=== PATIENT | female | born 1935 | race Caucasian/White ===

== ENCOUNTER 2017-02-07 22:01 | Inpatient (IN) | payer OTHER ==
[2017-02-07] MEDS ORDERED: ALBUTEROL SO4 2.5/IPRATROPIUM 0.5 INH SOL 3 ML VIAL.NEB. NEB STA (22:34)
[2017-02-07] MEDS ORDERED: MAGNESIUM SULF 50% (8.12 MEQ/2 ML-1 GM VIAL) IVPB ONE (22:34)
--- NOTE | 2017-02-07 22:34 | PDOC ---
History of Present Illness - General History Source: Patient <Indu Johnsonan - Last Filed: 02/07/17 23:48> - General History Source: Patient Exam Limitations: No Limitations - History of Present Illness Initial Comments: 02/07/17 22:48 The patient is a 81 year old female with a significant past medical history of CAD, COPD, HTN, MA (x2), who presents to the emergency department with dyspnea on exertion. This is patients third visit to the ED in the past 2 days. Patient was instructed to pick out hand her medications at the pharmacy. She notes that she took her first dose of Z pack today. She notes that she is still experiencing shortness of breath and cough. The patient denies chest pain, and dizziness. Denies fever, chills, nausea, vomit, diarrhea and constipation. Denies dysuria, frequency, urgency and hematuria. Allergies: None Past surgical history: Cholecystectomy Social history: Former smoker. Alcohol use. No drug use reported PMD - Dr. Mccrary <April Alonso - Last Filed: 02/07/17 23:56> - General Chief Complaint: Asthma Stated Complaint: DIFFICULTY BREATHING Time Seen by Provider: 02/07/17 22:26 Past History - Past Medical History Cancer: Yes (UTERINE) Cardiac Disorders: Yes (2 MA'S) COPD: Yes HTN: Yes Thyroid Disease: Yes - Surgical History Abdominal Surgery: Yes (BLOCKAGE) Cholecystectomy: Yes - Psycho/Social/Smoking Cessation Hx Anxiety: No Suicidal Ideation: No Smoking Status: Yes Smoking History: Never smoked Have you smoked in the past 12 months: No Number of Cigarettes Smoked Daily: 10 If you are a former smoker, when did you quit?: 5 years ago Information on smoking cessation initiated: No 'Breaking Loose' booklet given: 11/20/12 Hx Alcohol Use: No Drug/Substance Use Hx: No Substance Use Type: None Hx Substance Use Treatment: No <Jasmeet Johnson - Last Filed: 02/07/17 23:48> <April Alonso - Last Filed: 02/07/17 23:56> - Past Medical History Allergies/Adverse Reactions: Allergies Allergy/AdvReac Type Severity Reaction Status Date / Time No Known Allergies Allergy Verified 02/07/17 22:17 Home Medications: Ambulatory Orders Albuterol Sulfate Inhaler - [Ventolin HFA Inhaler -] 1 - 2 inh IH TID PRN Estrogens,Conjugated [Premarin] 1.25 mg PO DAILY 11/16/12 Levothyroxine [Synthroid -] 25 mcg PO DAILY 11/16/12 Metoprolol Succinate [Toprol XL -] 12.5 mg PO HS 11/16/12 Aclidinium [place] [Tudorza -] 1 inh PO ASDIR 02/19/15 Albuterol 2.5/Ipratropium 0.5 [Duoneb -] 1 neb NEB TID PRN 02/19/15 Aspirin [ASA -] 81 mg PO DAILY 02/19/15 Mirabegron [Myrbetriq] 25 mg PO DAILY 02/19/15 Cyclobenzaprine HCl [Flexeril -] 5 mg PO PRN 10/02/16 Oxycodone HCl/Acetaminophen [Percocet 5-325 mg Tablet] 1 tab PO PRN 10/02/16 Chlorthalidone [Hygroton -] 25 mg PO DAILY 02/06/17 Gabapentin [Neurontin -] 100 mg PO Q8H 02/06/17 Prednisone [Deltasone -] 5 mg PO DAILY 02/06/17 Prednisone [Deltasone -] 10 mg PO DAILY 02/06/17 Azithromycin [Zithromax Tri-Severino (3 DAYS) -] 500 mg PO DAILY #3 tablet 02/07/17 Sodium Chloride Inhalation [Normal Saline For Inhalation -] 3 ml IH Q6H PRN #60 vial.neb 02/07/17 Review of Systems - Review of Systems Able to Perform ROS?: Yes Comments:: 02/07/17 22:46 CONSTITUTIONAL: Absent: fever, chills, diaphoresis, generalized weakness, malaise, loss of appetite HEENT: Absent: rhinorrhea, nasal congestion, throat pain, throat swelling, difficulty swallowing, mouth swelling, ear pain, eye pain, visual Changes CARDIOVASCULAR: Absent: chest pain, syncope, palpitations, irregular heart rate, lightheadedness , peripheral edema RESPIRATORY: Present: shortness of breath, dyspnea on exertion. Absent: cough, orthopnea, wheezing, stridor, hemoptysis GASTROINTESTINAL: Absent: abdominal pain, abdominal distension, nausea, vomiting, diarrhea, constipation, melena, hematochezia GENITOURINARY: Absent: dysuria, frequency, urgency, hesitancy, hematuria, flank pain, genital pain MUSCULOSKELETAL: Absent: myalgia, arthralgia, joint swelling SKIN: Absent: rash, itching, pallor HEMATOLOGIC/IMMUNOLOGIC: Absent: easy bleeding, easy bruising, lymphadenopathy, frequent infections ENDOCRINE: Absent: unexplained weight gain, unexplained weight loss, heat intolerance, cold intolerance NEUROLOGIC: Absent: headache, focal weakness or paresthesias, dizziness, unsteady gait, seizure, mental status changes, bladder or bowel incontinence PSYCHIATRIC: Absent: anxiety, depression, suicidal or homicidal ideation, hallucinations. <April Alonso - Last Filed: 02/07/17 23:56> *Physical Exam - Vital Signs Last Vital Signs Temp Pulse Resp BP Pulse Ox 98.0 F 87 18 148/62 94 L 02/07/17 22:01 02/07/17 22:01 02/07/17 22:01 02/07/17 22:01 02/07/17 22:01 <Jasmeet Johnson - Last Filed: 02/07/17 23:48> - Vital Signs Last Vital Signs Temp Pulse Resp BP Pulse Ox 98.0 F 87 18 148/62 94 L 02/07/17 22:01 02/07/17 22:01 02/07/17 22:01 02/07/17 22:01 02/07/17 22:01 - Physical Exam Comments: 02/07/17 22:45 GENERAL: Well developed, well nourished. Awake and alert. In no acute distress. HEENT: Normocephalic, atraumatic. PERRLA, EOMI. No conjunctival pallor. Sclerae are non -icteric. Moist mucous membranes. Oropharynx is clear. NECK: Supple. Full ROM. No JVD. Carotid pulses 2+ and symmetric, without bruits. No thyromegaly. No lymphadenopathy. CARDIOVASCULAR: Regular rate and rhythm. No murmurs, rubs, or gallops. Distal pulses are 2+ and symmetric. PULMONARY: +Decreased breath sounds. +conversational dyspnea. Lungs clear to auscultation bilaterally. No wheezing, rales or rhonchi. ABDOMINAL: Soft. Non-tender. Non-distended. No rebound or guarding. No organomegaly. Normoactive bowel sounds. MUSCULOSKELETAL Normal range of motion at all joints. No bony deformities or tenderness. No CVA tenderness. EXTREMITIES: No cyanosis. No clubbing. No edema. No calf tenderness. SKIN: Warm and dry. Normal capillary refill. No rashes. No jaundice. NEUROLOGICAL: Alert, awake, appropriate. Cranial nerves 2-12 intact. No deficits to light touch and temperature in face, upper extremities and lower extremities. No motor deficits in the in face, upper extremities and lower extremities. Normoreflexic in the upper and lower extremities. Normal speech. Toes are downgoing bilaterally. Gait is normal without ataxia. PSYCHIATRIC: Cooperative. Good eye contact. Appropriate mood and affect. <April Alonso - Last Filed: 02/07/17 23:56> ED Treatment Course - LABORATORY CBC & Chemistry Diagram: 02/07/17 22:50 02/07/17 22:50 <Jasmeet Johnson - Last Filed: 02/07/17 23:48> - LABORATORY CBC & Chemistry Diagram: 02/07/17 22:50 02/07/17 22:50 <April Alonso - Last Filed: 02/07/17 23:56> Medical Decision Making - Medical Decision Making 02/07/17 23:48 Dr. Johnson: The scribe's documentation has been prepared under my direction and personally reviewed by me in its entirery. I confirm that the note above accurately reflects all work, treatment, procedures, and medical decision making performed by me. Pt presents for her 3rd visit of the day. States she has been compliant with her medication. Will admit to [facility] <Jasmeet Johnson - Last Filed: 02/07/17 23:48> - Medical Decision Making 02/07/17 22:44 A call was placed to Dr. Mccrary at his service. Awaiting a call back. 02/07/17 23:25 A second call was placed to Dr. Mccrary at his service. Awaiting a call back. 02/07/17 23:[address] Mccrary. <April Alonso - Last Filed: 02/07/17 23:56> *DC/Admit/Observation/Transfer - Discharge Dispostion Admit: Yes <Jasmeet Johnson - Last Filed: 02/07/17 23:48> - Attestations Scribe Attestion: 04/10/17 22:45 Documentation prepared by DADA Singer, acting as medical delivery driver for Jasmeet Johnson DO. <April Alonso - Last Filed: 02/07/17 23:56> Diagnosis at time of Disposition: Shortness of breath, COPD exacerbation - Referrals Referrals: Elliot Mccrary MD [Primary Care Provider] -
[2017-02-07] MEDS ORDERED: MAGNESIUM SULF 50% (8.12 MEQ/2 ML-1 GM VIAL) ONE (22:38)
[2017-02-07 23:03] LABS: BASOPHIL 0.3 % (0-2.0); MCH 28.5 pg (25.7-33.7); MCHC 33.2 g/dl (32.0-36.0); NEUTROPHILS 87.1 % (42.8-82.8); PLATELET COUNT 299 K/MM3 (134-434); RDW 14.2 % (11.6-15.6); WHITE BLOOD COUNT 14.2 K/mm3 (4.0-10.0)
[2017-02-07 23:21] LABS: CALCIUM 8.8 mg/dL (8.5-10.1); COCKROFT - GAULT 32.963
[2017-02-07] MEDS ORDERED: POTASSIUM CHLORIDE TABS 20 MEQ TABLET.ER (FP) PO ONE ×2 (23:47→23:52)
[2017-02-07] MEDS ORDERED: ALBUTEROL SO4 2.5/IPRATROPIUM 0.5 INH SOL 3 ML VIAL.NEB. NEB ONE (23:52)
[2017-02-08] MEDS ORDERED: ALBUTEROL SO4 0.083% IH SOL 2.5 MG/3 ML VIAL.NEB. NEB PRN (00:41)
--- NOTE | 2017-02-08 00:41 | HP ---
CHIEF COMPLAINT: shortness of breath PCP: Dr. Mccrary Cardio" Dr. Campbell HISTORY OF PRESENT ILLNESS: 81 yr old woman with COPD, HTN, CAD, LA x2, presents to the ED for shortness of breath with mild frontal headache. This is the patient's third visit to the ED in 48-hours. She was brought in by EMS on 02/06 for difficulty breathing in the morning. She used her home oxygen and albuterol neb treatment x1 without relief , in the ED she improved with saline nebulizer and dc'd with prescription for 3- day Z-severino. She returned home and felt her sob worsened, she was brought in by , received duonebs that improved her symptoms and discharged. At home, she again felt her symptoms were worsening, she took 10mg of po prednisone and tried her home oxygen without any relief and returned to the hospital this night. Shortness of breath occurs at rest, made worse with exertion. She also c/ o intermittent productive cough of clear-white sputum that started on . Headache started this morning, is located in the front of the head, nonradiating , nonpositional, continuing to improve on its own. She has been having poor appetite since symptoms started on the . Denies fevers, hx of ICU stays/intubations, chest pain, dysuria, rhinorrhea, hemoptysis, PND, abdominal pain, diarrhea, travel, changes in vision, N/V. Denies pets at home or sick contacts. She has been alternating between 5mg and 10mg of prednisone daily for past year. 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 chronic neck pain hypothyroidism SBO PAST SURGICAL HISTORY: 1969's - hysterectomy for cervical cancer cholecystectomy ex-lap Social History: Smokin/2 pk/30-40 yrs, quit 6yrs ago Alcohol: rare glass of wine Drugs: denies Family History: [place] Allergies No Known Allergies Allergy (Verified 02/07/17 22:17) HOME MEDICATIONS: Recent change in anti-hypertensives: does not recall the name of medication but it had to be stopped because it made her "puffy," recently started on chlorthalidone. Home Medications Medication Instructions Recorded Albuterol Sulfate Inhaler - 1 - 2 inh IH TID PRN 11/16/12 [Ventolin HFA Inhaler -] Estrogens,Conjugated [Premarin] 1.25 mg PO DAILY 11/16/12 Levothyroxine [Synthroid -] 25 mcg PO DAILY 11/16/12 Metoprolol Succinate [Toprol XL -] 12.5 mg PO HS 11/16/12 Aclidinium [place] [Tudorza -] 1 inh PO ASDIR 02/19/15 Albuterol 2.5/Ipratropium 0.5 1 neb NEB TID PRN 02/19/15 [Duoneb -] Aspirin [ASA -] 81 mg PO DAILY 02/19/15 Mirabegron [Myrbetriq] 25 mg PO DAILY 02/19/15 Cyclobenzaprine HCl [Flexeril -] 5 mg PO PRN 10/02/16 Oxycodone HCl/Acetaminophen 1 tab PO PRN 10/02/16 [Percocet 5-325 mg Tablet] Chlorthalidone [Hygroton -] 25 mg PO DAILY 02/06/17 Gabapentin [Neurontin -] 100 mg PO Q8H 02/06/17 Prednisone [Deltasone -] 5 mg PO DAILY 02/06/17 Prednisone [Deltasone -] 10 mg PO DAILY 02/06/17 Azithromycin [Zithromax Tri-Severino (3 500 mg PO DAILY #3 tablet 02/07/17 DAYS) -] Sodium Chloride Inhalation [Normal 3 ml IH Q6H PRN #60 vial.neb 02/07/17 Saline For Inhalation -] REVIEW OF SYSTEMS CONSTITUTIONAL: Present: loss of appetite, Absent: fever, chills, diaphoresis, generalized weakness, malaise,weight change HEENT: Absent: rhinorrhea, nasal congestion, throat pain, throat swelling, difficulty swallowing, mouth swelling, ear pain, eye pain, visual changes CARDIOVASCULAR: Absent: chest pain, syncope, palpitations, irregular heart rate, lightheadedness , peripheral edema RESPIRATORY: Present:cough, shortness of breath Absent: , dyspnea with exertion, orthopnea, wheezing, stridor, hemoptysis GASTROINTESTINAL: Present: constipation, Absent: abdominal pain, abdominal distension, nausea, vomiting, diarrhea, melena , hematochezia GENITOURINARY: Absent: dysuria, frequency, urgency, hesitancy, hematuria, flank pain, genital pain MUSCULOSKELETAL: Absent: myalgia, arthralgia, joint swelling, back pain, neck pain SKIN: Absent: rash, itching, pallor HEMATOLOGIC/IMMUNOLOGIC: Absent: easy bleeding, easy bruising, lymphadenopathy, frequent infections ENDOCRINE: Absent: unexplained weight gain, unexplained weight loss, heat intolerance, cold intolerance NEUROLOGIC: Absent: headache, focal weakness or paresthesias, dizziness, unsteady gait, seizure, mental status changes, bladder or bowel incontinence PSYCHIATRIC: Absent: anxiety, depression, suicidal or homicidal ideation, hallucinations. PHYSICAL EXAMINATION Vital Signs - 24 hr 02/07/17 02/07/17 22:01 23:02 Temperature 98.0 F Pulse Rate 87 82 Respiratory 18 Rate Blood Pressure 148/62 O2 Sat by Pulse 94 L 100 Oximetry (%) GENERAL: Awake, alert, and fully oriented, in no acute distress. thin elderly woman, able to speak in full sentences without sob. HEAD: Normal with no signs of trauma. EYES: Pupils equal, round and reactive to light, extraocular movements intact, sclera anicteric, conjunctiva clear. No lid lag. no sinus tenderness. EARS, NOSE, THROAT: Ears normal, nares patent, oropharynx clear without exudates. dry mucous membranes. no PND, no oral lesions. nasal cannula in place. NECK: Normal range of motion, supple without lymphadenopathy, JVD, or masses. LUNGS: Breath sounds diminished from mid-lung to bases in b/l lungs. clear breath sounds at apices. No accessory muscle use. HEART: Regular rate and rhythm, normal S1 and S2 without murmur, rub or gallop. ABDOMEN: Soft, nontender, not distended, normoactive bowel sounds, no guarding, no rebound, no masses. well-healed midline scar below umbilicus and hysterectomy scar MUSCULOSKELETAL: Normal range of motion at all joints. No bony deformities or tenderness. No CVA tenderness. UPPER EXTREMITIES: 2+ pulses, warm, well-perfused. No cyanosis. No clubbing. No peripheral edema. LOWER EXTREMITIES: 2+ pulses, warm, well-perfused. No calf tenderness. No peripheral edema. right arteaga with few small nontender non-blanching petechaie NEUROLOGICAL: Cranial nerves II-XII intact. Normal speech. PSYCHIATRIC: Cooperative. Good eye contact. Appropriate mood and affect. SKIN: Warm, dry, normal turgor, no rashes or lesions noted, normal capillary refill. Laboratory Results - last 24 hr 02/07/17 02/07/17 22:50 22:50 WBC 14.2 H RBC 4.40 Hgb 12.6 Hct 37.8 MCV 86.0 MCHC 33.2 RDW 14.2 Plt Count 299 MPV 8.0 Neutrophils % 87.1 H Lymphocytes % 7.1 L D Monocytes % 5.5 Eosinophils % 0.0 D Basophils % 0.3 Sodium 139 Potassium 3.1 L Chloride 97 L Carbon Dioxide 30 Anion Gap 12 BUN 18 Creatinine 1.0 D Random Glucose 137 H Calcium 8.8 Active Medications Acetaminophen (Tylenol -) 325 mg PO ONCE PRN PRN Reason: HEADACHE Aclidinium [place] (Tudorza -) 1 puff IH ASDIR [place] Albuterol Sulfate (Ventolin 0.083% Nebulizer Soln -) 1 amp NEB Q4H [place] Aspirin (Asa -) 81 mg PO DAILY [place] Chlorthalidone (Hygroton -) 25 mg PO DAILY [place] Cyclobenzaprine HCl (Flexeril -) 5 mg PO PRN [place] Enoxaparin Sodium (Lovenox -) 40 mg SQ DAILY [facility] Estrogens Conjugated (Premarin -) 1.25 mg PO DAILY [place] Gabapentin (Neurontin -) 100 mg PO Q8H [place] Guaifenesin/Codeine Phosphate (Robitussin Ac -) 10 ml PO Q8H PRN PRN Reason: COUGH Levothyroxine Sodium (Synthroid -) 25 mcg PO AM [place] Methylprednisolone Sodium Succinate (Solu-Medrol -) 60 mg IVPB Q6H-IV [place] Metoprolol Succinate (Toprol Xl -) 12.5 mg PO HS [place] Non-Formulary Medication (Albuterol Sulfate Inhaler - [Ventolin Hfa Inhaler -]) 2 inh IH TID PRN PRN Reason: SHORT OF BREATH/WHEEZING Non-Formulary Medication (Azithromycin [Zithromax Tri-Severino (3 Days) -]) 500 mg PO DAILY [place] Non-Formulary Medication (Mirabegron [Myrbetriq]) 25 mg PO DAILY [place] Pantoprazole Sodium (Protonix -) 20 mg PO ONCE ONE Stop: 02/08/17 06:01 ASSESSMENT/PLAN: 81 yr old woman with COPD on home oxygen prn and chronic steroid use and HTN presents to the ED with worsening SOB admitted for COPD exacerbation. #COPD exacerbation - CXY clear without infiltrate or congestion unlikely to be pna, r/o influenza with flu swab - s/p Mg 1g IV - Duonebs albuterol q4hrs [place] - solumedrol 60mg IV q6hr [place] - azithromycin 500mg qd for 3 days - Guaifenesin/Codeine 10ml q8hr prn - tudorza, ventolin - peak flow measurement #HypoK - repleted in ED, repeat in AM #leucocytosis - pt is afebrile without URI/UTI symptoms, likely due to steriod use - repeat in the AM - if febrile will send cxs #GI prophylaxis - given concurrent use of ASA and steriods, GI prophylaxis with 20mg protonix in the morning. #HTN - chlorthalidone 25mg po qd - toprol XL 12.5mg po HS #Hypothyroidism - 25mcg qd #Constipation, intermittent. had bowel movement this morning - prune juice #Urinary frequency - continue home medication: myrbetriq #Diet: low sodium #DVT: lovenox sq Code status: Full code, consents to intubation. at beside verbalized understanding of patient's resuscitation wishes. Visit type - Emergency Visit Emergency Visit: Yes ED Registration Date: 02/07/17 Care time: The patient presented to the Emergency Department on the above date and was hospitalized for further evaluation of their emergent condition. - New Patient This patient is new to me today: Yes Date on this admission: 02/07/17 - Critical Care Critical Care patient: No
[2017-02-08] MEDS: methylPREDNISolone NA SUCC 40 MG/1 ML VIAL IVPB SCH ×5 (00:45→20:40)
--- NOTE | 2017-02-08 00:51 | PN ---
<Anthony Ballard - Last Filed: 02/08/17 00:50> Teaching Attending Note Name of Resident: Karen Batista ATTENDING PHYSICIAN STATEMENT I saw and evaluated the patient. I reviewed the resident's note and discussed the case with the resident. I agree with the resident's findings and plan as documented. SUBJECTIVE: OBJECTIVE: ASSESSMENT AND PLAN: <AnthonymakennaBrad - Last Filed: 02/08/17 00:55> Teaching Attending Note ATTENDING PHYSICIAN STATEMENT I saw and evaluated the patient. I reviewed the resident's note and discussed the case with the resident. I agree with the resident's findings and plan as documented. SUBJECTIVE: The patient is an 81 year old female who presented to the ED complaining 2 day history of worsening SOB associated with dry non productive cough. She was seen in the ED 3 times over past 24 hours, initially prescribed cough suppressants and Z-pat and discharged, however returned due to worsening of symptoms. She denied associated fever. Patient has hx of adv COPD with most rec exacerbation in Aug 2016. She takes prednisone daily and was prescribed O2 however she does not use it daily. PMH: HTN, COPD, Hypothyroidism, CAD, Cervical cancer, SMO Allergies: None Past surgical history: Cholecystectomy, Hysterectomy, laparotomy Family history: Negative for cancer. Social history: 20 p/y smoker. Alcohol use. No drug use reported OBJECTIVE: Vital Signs: Last Vital Signs Temp Pulse Resp BP Pulse Ox 98.0 F 82 18 148/62 100 02/07/17 22:01 02/07/17 23:02 02/07/17 22:01 02/07/17 22:01 02/07/17 23:02 Physical Exam: GENERAL: Awake, alert, and fully oriented, in no acute distress HEENT: Atraumatic. PERRLA, EOMI. Moist mucosa. No JVD LUNGS: No distress, speaks full sentences, clear to auscultation bilaterally HEART: Regular rate and rhythm, normal S1 and S2, no murmurs, rubs or gallops, peripheral pulses normal and equal bilaterally. ABDOMEN: Soft, nontender, normoactive bowel sounds. No guarding, no rebound. No masses EXTREMITIES: Normal inspection, Normal range of motion, no edema. No clubbing or cyanosis. NEUROLOGICAL: Cranial nerves II through XII grossly intact. Normal speech, no focal sensorimotor deficits SKIN: Warm, Dry, normal turgor, no rashes or lesions noted. Labs: CBCD WBC 14.2 K/mm3 (4.0-10.0) H 02/07/17 22:50 RBC 4.40 M/mm3 (3.60-5.2) 02/07/17 22:50 Hgb 12.6 GM/dL (10.7-15.3) 02/07/17 22:50 Hct 37.8 % (32.4-45.2) 02/07/17 22:50 MCV 86.0 fl (80-96) 02/07/17 22:50 MCHC 33.2 g/dl (32.0-36.0) 02/07/17 22:50 RDW 14.2 % (11.6-15.6) 02/07/17 22:50 Plt Count 299 K/MM3 (134-434) 02/07/17 22:50 MPV 8.0 fl (7.5-11.1) 02/07/17 22:50 CMP Sodium 139 mmol/L (136-145) 02/07/17 22:50 Potassium 3.1 mmol/L (3.5-5.1) L 02/07/17 22:50 Chloride 97 mmol/L (98-107) L 02/07/17 22:50 Carbon Dioxide 30 mmol/L (21-32) 02/07/17 22:50 Anion Gap 12 (8-16) 02/07/17 22:50 BUN 18 mg/dL (7-18) 02/07/17 22:50 Creatinine 1.0 mg/dL (0.55-1.02) D 02/07/17 22:50 Calcium 8.8 mg/dL (8.5-10.1) 02/07/17 22:50 ASSESSMENT AND PLAN: 81 year old female with advanced COPD that presented to ED on 02/07/17 and will be admitted under [facility] on 02/08/17. This patient meets medical necessity for inpatient hospitalization based on need for IV steroid therapy. Considering failure of treatment with outpatient antibiotics and oral prednisone. Anticipated length at hospital greater than 2 midnights. Problem List: 1.COPD exacerbation-acute 2. Leukocytosis 3. Hypokalemia- supplement potassium Plan: Solu Medrol 60 mg Q4. Nebulizers around the clock. Continue Z-pat. Swab for flu. Supplement potassium. Continue home medications. Full code. Admit to med surg. Documentation prepared by Brad Tiwari, acting as chief medical physicist for Dr. Elio MD.
[2017-02-08] MEDS ORDERED: methylPREDNISolone NA SUCC 40 MG/1 ML VIAL ONE ×2 (01:08→02:28)
[2017-02-08] MEDS ORDERED: CYCLOBENZAPRINE HCL 10 MG TABLET (FP) PO SCH (01:15)
[2017-02-08] MEDS: ACLIDINIUM BROMIDE 400 MCG/INH AERO.POWD IH SCH (01:15)
[2017-02-08] MEDS ORDERED: ACETAMINOPHEN 325 MG TABLET (FP) PO PRN (01:50)
[2017-02-08] MEDS ORDERED: ALBUTEROL SO4 0.083% IH SOL 2.5 MG/3 ML VIAL.NEB. NEB ONE (02:27)
[2017-02-08] MEDS ORDERED: GABAPENTIN 100 MG CAPSULE (FP) ONE (02:28)
[2017-02-08] MEDS: GABAPENTIN 100 MG CAPSULE (FP) PO SCH ×3 (03:05→17:10)
[2017-02-08] MEDS: ALBUTEROL SO4 0.083% IH SOL 2.5 MG/3 ML VIAL.NEB. NEB SCH ×4 (04:05→22:06)
[2017-02-08] MEDS ORDERED: PANTOPRAZOLE 40 MG TABLET (FP) ONE (05:40)
[2017-02-08] MEDS ORDERED: LEVOTHYROXINE NA 25 MCG TABLET (FP) ONE (05:40)
[2017-02-08] MEDS ORDERED: PANTOPRAZOLE 20 MG TABLET (FP) PO ONE (06:00)
[2017-02-08] MEDS ORDERED: LEVOTHYROXINE NA 75 MCG TABLET (FP) PO SCH (07:00)
[2017-02-08 07:54] LABS: BASOPHIL 0.1 % (0-2.0); MCH 28.7 pg (25.7-33.7); MCHC 33.4 g/dl (32.0-36.0); MEAN CELL VOLUME 86.1 fl (80-96); MEAN PLT VOLUME 8.4 fl (7.5-11.1); NEUTROPHILS 95.2 % (42.8-82.8); PLATELET COUNT 280 K/MM3 (134-434); RDW 14.2 % (11.6-15.6)
[2017-02-08 08:11] LABS: CALCIUM 8.9 mg/dL (8.5-10.1); COCKROFT - GAULT 41.1995; CREATININE 0.8 mg/dL (0.55-1.02); MAGNESIUM 2.1 mg/dL (1.8-2.4); PHOSPHOROUS 2.3 mg/dL (2.5-4.9)
[2017-02-08] MEDS ORDERED: LEVOTHYROXINE NA 25 MCG TABLET (FP) PO SCH (09:05)
[2017-02-08] MEDS ORDERED: PATIENT'S OWN MEDICATION (NON-FORMULARY) (Mirabegron [Myrbetriq] 25 MG) PO SCH (10:00)
[2017-02-08] MEDS: CHLORTHALIDONE 25 MG TABLET PO SCH (10:12)
[2017-02-08] MEDS: ASPIRIN 81 MG CHEWABLE TABLETS PO SCH (10:12)
[2017-02-08] MEDS: ENOXAPARIN NA (PORCINE) 40 MG/0.4 ML DISP.SYRIN SQ SCH (10:12)
[2017-02-08] MEDS: ESTROGENS,CONJUGATED 1.25 MG TABLET PO SCH (10:13)
[2017-02-08] MEDS: AZITHROMYCIN 250 MG TABLET (FP) PO SCH (10:13)
[2017-02-08] MEDS ORDERED: ALBUTEROL SO4 6.7 GM HFA INHALER IH PRN (16:14)
--- NOTE | 2017-02-08 17:01 | PN ---
Physical Exam: SUBJECTIVE: Patient seen and examined at bedside. Pt comes in to ER for third time in 2 days for unprovoked SOB and dry cough. Pt on initial ER visit she was treated w/nebs and discharged with z-pat. That same night pt again had unprovoked SOB and came to ER and was treated with nebs again and improved and was discharged. Following day pt had SOB again despite trying alb nebs at home, supplemental O2, and 10mg of prednisone prior to coming to ER on third visit. SOB is present at rest and worsened with exertion. She also has a cough with white/clear sputum production. Denies CP, abd pain, diarrhea, dysuria, N/V/F/C, sick contacts, travel history. Currently pt feels better, breathing is improved, cough improved, still having some SOB at rest as per pt. Pt was able to expectorate some green sputum today. OBJECTIVE: Vital Signs Temperature 98.1 F 02/08/17 15:17 Pulse Rate 76 02/08/17 15:17 Respiratory Rate 20 02/08/17 15:17 Blood Pressure 130/60 02/08/17 15:17 O2 Sat by Pulse Oximetry (%) 95 02/08/17 09:00 GENERAL: The patient is awake, alert, and fully oriented, in no acute distress. HEAD: Normal with no signs of trauma. EYES: extraocular movements intact, sclera anicteric, conjunctiva clear. No ptosis. ENT: Ears normal, nares patent, moist mucous membranes. NECK: full range of motion LUNGS: Diminished breath sounds B/L, no wheezing auscultated, no crackles HEART: Regular rate and rhythm, S1, S2 without murmur, rub or gallop. ABDOMEN: Soft, nontender, nondistended, normoactive bowel sounds, no guarding EXTREMITIES: 2+ pulses, warm, well-perfused, no edema. NEUROLOGICAL: Cranial nerves II through XII grossly intact. Normal speech, gait not observed. PSYCH: Normal mood, normal affect. SKIN: Warm, dry, normal turgor, no rashes or lesions noted Laboratory Results - last 24 hr 02/08/17 02/08/17 06:00 06:00 WBC 16.0 H RBC 4.29 Hgb 12.3 Hct 37.0 MCV 86.1 MCHC 33.4 RDW 14.2 Plt Count 280 MPV 8.4 Neutrophils % 95.2 H Lymphocytes % 3.1 L D Monocytes % 1.6 L Eosinophils % 0.0 Basophils % 0.1 Sodium 139 Potassium 3.8 D Chloride 100 Carbon Dioxide 28 Anion Gap 11 BUN 15 Creatinine 0.8 Random Glucose 158 H Calcium 8.9 Phosphorus 2.3 L Magnesium 2.1 CXR 02/07/17: no acute pathology noted. No infiltrates or congestive changes noted. Active Medications Generic Name Dose Route Start Last Admin Trade Name Freq PRN Reason Stop Dose Admin Acetaminophen 325 mg 02/08/17 01:50 Tylenol - PO ONCE PRN HEADACHE Aclidinium [place] 1 puff 02/08/17 01:15 02/08/17 01:15 Tudorza - IH Not Given ASDIR [place] Albuterol Sulfate 2 puff 02/08/17 16:14 Ventolin Hfa Inhaler - IH TID PRN SHORT OF BREATH/WHEEZING Albuterol Sulfate 1 amp 02/08/17 02:15 02/08/17 14:48 Ventolin 0.083% Nebulizer Soln - NEB 1 amp Q4H [place] Administration Aspirin 81 mg 02/08/17 10:00 02/08/17 10:12 Asa - PO 81 mg DAILY [place] Administration Azithromycin 500 mg 02/08/17 10:00 02/08/17 10:13 Zithromax - PO 02/10/17 10:01 500 mg DAILY [place] Administration Chlorthalidone 25 mg 02/08/17 10:00 02/08/17 10:12 Hygroton - PO 25 mg DAILY [place] Administration Cyclobenzaprine HCl 5 mg 02/08/17 01:15 Flexeril - PO PRN [place] Enoxaparin Sodium 40 mg 02/08/17 10:00 02/08/17 10:12 Lovenox - SQ 40 mg DAILY [place] Administration Estrogens Conjugated 1.25 mg 02/08/17 10:00 02/08/17 10:13 Premarin - PO 1.25 mg DAILY [place] Administration Gabapentin 100 mg 02/08/17 01:15 02/08/17 10:12 Neurontin - PO 100 mg Q8H [place] Administration Guaifenesin/Codeine Phosphate 10 ml 02/08/17 01:02 Robitussin Ac - PO Q8H PRN COUGH Levothyroxine Sodium 25 mcg 02/09/17 07:00 Synthroid - PO AM [place] Methylprednisolone Sodium Succinate 60 mg 02/08/17 00:45 02/08/17 14:51 Solu-Medrol - IVPB 60 mg Q6H-IV [place] Administration Metoprolol Succinate 12.5 mg 02/08/17 22:00 Toprol Xl - PO HS [place] Non-Formulary Medication 25 mg 02/09/17 22:00 Mirabegron [Myrbetriq] PO HS [facility] ASSESSMENT/PLAN: 81 y/o F w/sig PMH COPD, HTN, CAD, [place] x2 presents w/SOB for last 2 days. Admitted for COPD exacerbation and pulm nodule followed up as outpatient over last 2 years. -SOB secondary to COPD exacerbation vs cardiac etiology -supplemental oxygen to keep O2 saturation >90% -c/w solu-medrol 60 mg IV q6h -c/w tudorza, ventolin, duonebs -c/w zithromax 500 mg PO qd -Cardiology consulted (Dr. Elias) -Cough -secondary to COPD exacerbation -c/w guaifenesin AC 10ml PO q8h PRN for cough -Lung nodule -11 x 9 mm in RUL, stable in size -followed up as outpatient over last 2 years -Leukocytosis -most likely secondary to steroid use -no signs of infection at this time, monitor -Hypothyroidism -c/w synthroid 25 mcg PO qd -HTN -c/w chlorthalidone 25 mg po qd -c/w toprol xl 12.5 mg po qhs -Overactive bladder -c/w myrbetriq 25 mg po qhs -DVT ppx -lovenox 50 mg sq qd -FEN -No fluids -hypophosphatemia, monitor -low sodium diet Problem List - Problems (1) COPD exacerbation Code(s): J44.1 - CHRONIC OBSTRUCTIVE PULMONARY DISEASE W (ACUTE) EXACERBATION (2) Shortness of breath Code(s): R06.02 - SHORTNESS OF BREATH (3) Lung nodule Code(s): R91.1 - SOLITARY PULMONARY NODULE (4) Leukocytosis Code(s): D72.829 - ELEVATED WHITE BLOOD CELL COUNT, UNSPECIFIED (5) Cough Code(s): R05 - COUGH (6) Hypothyroidism Code(s): E03.9 - HYPOTHYROIDISM, UNSPECIFIED (7) Overactive bladder Code(s): N32.81 - OVERACTIVE BLADDER (8) HTN (hypertension) Code(s): I10 - ESSENTIAL (PRIMARY) HYPERTENSION Visit type - Emergency Visit Emergency Visit: Yes ED Registration Date: 02/07/17 Care time: The patient presented to the Emergency Department on the above date and was hospitalized for further evaluation of their emergent condition. - New Patient This patient is new to me today: Yes Date on this admission: 02/09/17 - Critical Care Critical Care patient: No
--- NOTE | 2017-02-08 18:00 | PN ---
Teaching Attending Note Name of Resident: Angelo Cast ATTENDING PHYSICIAN STATEMENT I saw and evaluated the patient. I reviewed the resident's note and discussed the case with the resident. I agree with the resident's findings and plan as documented. Conrado SEGUNDO MD
[2017-02-08] MEDS ORDERED: PT OWN MED DRAWER 7, Y5N ONE (21:48)
[2017-02-08] MEDS: METOPROLOL SUCCINATE 25 MG TAB.SR.24H (FP) PO SCH (22:45)
[2017-02-09] MEDS: PATIENT'S OWN MEDICATION (NON-FORMULARY) (Mirabegron [Myrbetriq] 25 MG) PO SCH ×2 (00:04→22:43)
[2017-02-09] MEDS ORDERED: ALPRAZolam 0.25 MG TABLET PO ONE (01:15)
[2017-02-09] MEDS: GABAPENTIN 100 MG CAPSULE (FP) PO SCH ×3 (01:21→17:18)
[2017-02-09] MEDS: ACLIDINIUM BROMIDE 400 MCG/INH AERO.POWD IH SCH ×2 (01:21→23:45)
[2017-02-09] MEDS: ALBUTEROL SO4 0.083% IH SOL 2.5 MG/3 ML VIAL.NEB. NEB SCH ×5 (02:20→22:20)
[2017-02-09] MEDS: methylPREDNISolone NA SUCC 40 MG/1 ML VIAL IVPB SCH ×4 (02:42→22:35)
[2017-02-09] MEDS: guaiFENesin/CODEINE 10 ML UNIT-DOSE CUPS PO PRN (02:42)
[2017-02-09 04:22] VITALS: BMI 21.0
[2017-02-09] MEDS: LEVOTHYROXINE NA 25 MCG TABLET (FP) PO SCH (06:34)
[2017-02-09] MEDS ORDERED: PT OWN MED DRAWER 7, Y5N ONE ×3 (08:19→22:38)
--- NOTE | 2017-02-09 08:25 | CON.CARD ---
Consult Consult Specialty:: cardiology Reason for Consultation:: shortness of breath - History of Present Illness Chief Complaint: Pt is short of breath on minimal exertion. History of Present Illness: he patient is a 81 year old white female with a significant past medical history of s/p PA, CAD (hx coronary angiogram at [facility]), COPD, HTN, anxiety, who presents to the emergency department with dyspnea on exertion. This is patient s third visit to the ED in the past 2 days. Patient was instructed to apple picker her medications at the pharmacy. She notes that she took her first dose of Z pack today. She notes that she is still experiencing shortness of breath and cough. The patient denies chest pain, and dizziness. Denies fever, chills, nausea, vomit, diarrhea and constipation. Denies dysuria, frequency, urgency and hematuria. Allergies: None Past surgical history: Cholecystectomy Social history: Former smoker. Alcohol use. No drug use reported PMD - Dr. Mccrary - History Source History Provided By: Patient, Family Member, Medical Record Limitations to Obtaining History: No Limitations - Past Medical History Cardio/Vascular: Yes: CAD, HTN, PA Pulmonary: Yes: COPD - Alcohol/Substance Use Hx Alcohol Use: No - Smoking History Smoking history: Never smoked Have you smoked in the past 12 months: No Aproximately how many cigarettes per day: 10 If you are a former smoker, when did you quit?: 5 years ago Home Medications - Allergies Allergies/Adverse Reactions: Allergies Allergy/AdvReac Type Severity Reaction Status Date / Time No Known Allergies Allergy Verified 02/07/17 22:17 - Home Medications Home Medications: Ambulatory Orders Albuterol Sulfate Inhaler - [Ventolin HFA Inhaler -] 1 - 2 inh IH TID PRN Estrogens,Conjugated [Premarin] 1.25 mg PO DAILY 11/16/12 Levothyroxine [Synthroid -] 25 mcg PO DAILY 11/16/12 Metoprolol Succinate [Toprol XL -] 12.5 mg PO HS 11/16/12 Aclidinium [place] [Tudorza -] 1 inh PO ASDIR 02/19/15 Albuterol 2.5/Ipratropium 0.5 [Duoneb -] 1 neb NEB TID PRN 02/19/15 Aspirin [ASA -] 81 mg PO DAILY 02/19/15 Mirabegron [Myrbetriq] 25 mg PO DAILY 02/19/15 Cyclobenzaprine HCl [Flexeril -] 5 mg PO PRN 10/02/16 Oxycodone HCl/Acetaminophen [Percocet 5-325 mg Tablet] 1 tab PO PRN 10/02/16 Chlorthalidone [Hygroton -] 25 mg PO DAILY 02/06/17 Gabapentin [Neurontin -] 100 mg PO Q8H 02/06/17 Prednisone [Deltasone -] 5 mg PO DAILY 02/06/17 Prednisone [Deltasone -] 10 mg PO DAILY 02/06/17 Azithromycin [Zithromax Tri-[place] (3 DAYS) -] 500 mg PO DAILY #3 tablet 02/07/17 Sodium Chloride Inhalation [Normal Saline For Inhalation -] 3 ml IH Q6H PRN #60 vial.neb 02/07/17 Family Disease History - Family Disease History Family History: Denies Review of Systems - Review of Systems Constitutional: reports: Weakness Eyes: reports: No Symptoms HENT: reports: No Symptoms Neck: reports: No Symptoms Cardiovascular: reports: Shortness of Breath Respiratory: reports: SOB Gastrointestinal: reports: Nausea Genitourinary: reports: No Symptoms Musculoskeletal: reports: Muscle Weakness Integumentary: reports: No Symptoms Neurological: reports: Tremors, Weakness Psychiatric: reports: Anxiety - Risk Factors Known Risk Factors: Yes: Age, Hypercholesterolemia, Hypertension, Prior PA /Emb Stroke, Smoking (former), Other (severe COPD) Vital Signs: Vital Signs Temperature 98.2 F 02/09/17 06:00 Pulse Rate 64 02/09/17 06:00 Respiratory Rate 18 02/09/17 06:00 Blood Pressure 129/53 02/09/17 06:00 O2 Sat by Pulse Oximetry (%) 95 02/08/17 22:00 Constitutional: Yes: Anxious Eyes: Yes: WNL HENT: Yes: WNL Neck: Yes: WNL Respiratory: Yes: Diminished, Tachypnea Gastrointestinal: Yes: Soft Renal/: No: Anuria JVD: No Carotid Bruit: No PMI: Non-Displaced Heart Sounds: Yes: S1, S2, S4 Murmur: Yes: Diastolic Murmur, Grade 1, Grade 2 Musculoskeletal: Yes: Muscle Weakness Extremities: Yes: Cool Edema: No Peripheral Pulses WNL: Yes Integumentary: Yes: WNL Neurological: Yes: WNL Psychiatric: Yes: Other (anxiety) - Other Data Labs, Other Data: CBC, BMP 02/08/17 06:00 02/08/17 06:00 Imaging - Results Chest X-ray: Image Reviewed (copd) Cat Scan: Report Reviewed (lung nodule) EKG: Image Reviewed (NSR; ?old septal infarct; LVH; LAE) Problem List - Problems (1) COPD exacerbation Assessment/Plan: bronchodilators, steroids, antibiotics per application packaging consultant. Code(s): J44.1 - CHRONIC OBSTRUCTIVE PULMONARY DISEASE W (ACUTE) EXACERBATION (2) Cervical radiculopathy Code(s): M54.12 - RADICULOPATHY, CERVICAL REGION (3) Nasal congestion Code(s): R09.81 - NASAL CONGESTION (4) Diastolic CHF Code(s): I50.30 - UNSPECIFIED DIASTOLIC (CONGESTIVE) HEART FAILURE (5) Aortic regurgitation Assessment/Plan: f/u ECHO for LVEF, valve status (hx significant AR). Code(s): I35.1 - NONRHEUMATIC AORTIC (VALVE) INSUFFICIENCY (6) Coronary artery disease Assessment/Plan: no chest pain. TNI < 0.02. Normal LVEF on 05/2016 ECHO> Hx ?PA-->coronary angiogram at [facility]: f/u records. Code(s): I25.10 - ATHSCL HEART DISEASE OF [place] CORONARY ARTERY W/O ANG PCTRS (7) Hyperlipidemia Assessment/Plan: start statin; keep LDL cholesterol < 70 mg/dL (presently >130). Code(s): E78.5 - HYPERLIPIDEMIA, UNSPECIFIED
[2017-02-09] MEDS: ASPIRIN 81 MG CHEWABLE TABLETS PO SCH (09:56)
[2017-02-09] MEDS: ENOXAPARIN NA (PORCINE) 40 MG/0.4 ML DISP.SYRIN SQ SCH (09:58)
[2017-02-09] MEDS: ESTROGENS,CONJUGATED 1.25 MG TABLET PO SCH (09:59)
[2017-02-09] MEDS: AZITHROMYCIN 250 MG TABLET (FP) PO SCH (09:59)
[2017-02-09] MEDS ORDERED: ATORVASTATIN CA 20 MG TABLET (FP) PO ONE (10:00)
[2017-02-09] MEDS: CHLORTHALIDONE 25 MG TABLET PO SCH (10:13)
--- NOTE | 2017-02-09 11:25 | PN ---
Physical Exam: PULMONARY PROGRESS NOTE SUBJECTIVE: Patient seen and examined at bedside. Pt feels better today with SOB and cough improved. She was able to walk from bed to door of room without issue yesterday and will try to walk further today. She felt anxious overnight and felt better after 0.25 mg of xanax, otherwise no acute events overnight. She denies CP, SOB at rest, fevers, chills, abd pain, palpitations. OBJECTIVE: Vital Signs Temperature 97.4 F L 02/09/17 09:42 Pulse Rate 76 02/09/17 09:42 Respiratory Rate 18 02/09/17 09:42 Blood Pressure 147/56 02/09/17 09:42 O2 Sat by Pulse Oximetry (%) 95 02/08/17 22:00 GENERAL: The patient is awake, alert, and fully oriented, in no acute distress. Able to speak full sentences without issue. HEAD: Normal with no signs of trauma. EYES: extraocular movements intact, sclera anicteric, conjunctiva clear. No ptosis. ENT: Ears normal, nares patent, moist mucous membranes. NECK: Trachea midline, full range of motion. LUNGS: diminished breath sounds b/l, no crackles, no wheezing HEART: Regular rate and rhythm, S1, S2 without murmur, rub or gallop. ABDOMEN: Soft, nontender, nondistended, normoactive bowel sounds, no guarding, no rebound, no hepatosplenomegaly, no masses. EXTREMITIES: 2+ pulses, warm, well-perfused, no edema. NEUROLOGICAL: Cranial nerves II through XII grossly intact. Normal speech, gait not observed. PSYCH: Normal mood, normal affect. SKIN: Warm, dry, normal turgor, no rashes or lesions noted Active Medications Generic Name Dose Route Start Last Admin Trade Name Freq PRN Reason Stop Dose Admin Acetaminophen 325 mg 02/08/17 01:50 Tylenol - PO ONCE PRN [place]ACHE Aclidinium [place] 1 puff 02/08/17 01:15 02/09/17 01:21 Tudorza - IH Not Given ASDIR [place] Albuterol Sulfate 2 puff 02/08/17 16:14 Ventolin Hfa Inhaler - IH TID PRN SHORT OF BREATH/WHEEZING Albuterol Sulfate 1 amp 02/08/17 02:15 02/09/17 06:51 Ventolin 0.083% Nebulizer Soln - NEB 1 amp Q4H [place] Administration Aspirin 81 mg 02/08/17 10:00 02/09/17 09:56 Asa - PO 81 mg DAILY [place] Administration Atorvastatin Calcium 20 mg 02/10/17 10:00 Lipitor - PO DAILY [place] Azithromycin 500 mg 02/08/17 10:00 02/09/17 09:59 Zithromax - PO 02/10/17 10:01 500 mg DAILY [place] Administration Chlorthalidone 25 mg 02/08/17 10:00 02/09/17 10:13 Hygroton - PO 25 mg DAILY [place] Administration Cyclobenzaprine HCl 5 mg 02/08/17 01:15 Flexeril - PO PRN [place] Enoxaparin Sodium 40 mg 02/08/17 10:00 02/09/17 09:58 Lovenox - SQ 40 mg DAILY [place] Administration Estrogens Conjugated 1.25 mg 02/08/17 10:00 02/09/17 09:59 Premarin - PO 1.25 mg DAILY [place] Administration Gabapentin 100 mg 02/08/17 01:15 02/09/17 09:58 Neurontin - PO 100 mg Q8H [place] Administration Guaifenesin/Codeine Phosphate 10 ml 02/08/17 01:02 02/09/17 02:42 Robitussin Ac - PO 10 ml Q8H PRN Administration COUGH Levothyroxine Sodium 25 mcg 02/09/17 07:00 02/09/17 06:34 Synthroid - PO 25 mcg AM [place] Administration Methylprednisolone Sodium Succinate 60 mg 02/08/17 00:45 02/09/17 09:56 Solu-Medrol - IVPB 60 mg Q6H-IV [place] Administration Metoprolol Succinate 12.5 mg 02/08/17 22:00 02/08/17 22:45 Toprol Xl - PO 12.5 mg HS [place] Administration Non-Formulary Medication 25 mg 02/08/17 23:15 02/09/17 00:04 Mirabegron [Myrbetriq] PO 25 mg HS [place] Administration ASSESSMENT/PLAN: 81 y/o F w/sig PMH COPD, HTN, CAD, [place] x2 presents w/SOB for last 2 days. Admitted for COPD exacerbation and pulm nodule followed up as outpatient over last 2 years. -SOB secondary to COPD exacerbation vs cardiac etiology -improving -f/u echo -supplemental oxygen to keep O2 saturation >90% -taper solu-medrol to 60 mg IV bid -c/w tudorza, ventolin, duonebs -c/w zithromax 500 mg PO qd -Cardiology consulted (Dr. Elias) -Cough -improving -secondary to COPD exacerbation -c/w guaifenesin AC 10ml PO q8h PRN for cough -Lung nodule -11 x 9 mm in RUL, stable in size -followed up as outpatient over last 2 years -Hypothyroidism -c/w synthroid 25 mcg PO qd -HTN -c/w chlorthalidone 25 mg po qd -c/w toprol xl 12.5 mg po qhs -HLD -lipitor 20mg po qhs -Overactive bladder -c/w myrbetriq 25 mg po qhs -DVT ppx -lovenox 40 mg sq qd -FEN -No fluids -hypophosphatemia, monitor -low sodium diet Problem List - Problems (1) COPD exacerbation Code(s): J44.1 - CHRONIC OBSTRUCTIVE PULMONARY DISEASE W (ACUTE) EXACERBATION (2) Shortness of breath Code(s): R06.02 - SHORTNESS OF BREATH (3) Lung nodule Code(s): R91.1 - SOLITARY PULMONARY NODULE (4) Leukocytosis Code(s): D72.829 - ELEVATED WHITE BLOOD CELL COUNT, UNSPECIFIED (5) Cough Code(s): R05 - COUGH (6) Hypothyroidism Code(s): E03.9 - HYPOTHYROIDISM, UNSPECIFIED (7) Overactive bladder Code(s): N32.81 - OVERACTIVE BLADDER (8) HTN (hypertension) Code(s): I10 - ESSENTIAL (PRIMARY) HYPERTENSION Visit type - Emergency Visit Emergency Visit: Yes ED Registration Date: 02/07/17 Care time: The patient presented to the Emergency Department on the above date and was hospitalized for further evaluation of their emergent condition. - New Patient This patient is new to me today: No - Critical Care Critical Care patient: No
--- NOTE | 2017-02-09 12:19 | PN ---
Progress Note, Physician History of Present Illness: he patient is a 81 year old white female with a significant past medical history of s/p [place], CAD (hx coronary angiogram at [facility]), COPD, HTN, anxiety, who presents to the emergency department with dyspnea on exertion. This is patient s third visit to the ED in the past 2 days. Patient was instructed to vegetable picker her medications at the pharmacy. She notes that she took her first dose of Z pack today. She notes that she is still experiencing shortness of breath and cough. The patient denies chest pain, and dizziness. Denies fever, chills, nausea, vomit, diarrhea and constipation. Denies dysuria, frequency, urgency and hematuria. Allergies: None Past surgical history: Cholecystectomy Social history: Former smoker. Alcohol use. No drug use reported PMD - Dr. Mccrary - Current Medication List Current Medications: Active Medications Acetaminophen (Tylenol -) 325 mg PO ONCE PRN PRN Reason: HEADACHE Aclidinium [place] (Tudorza -) 1 puff IH ASDIR [facility] Last Admin: 02/09/17 01:21 Dose: Not Given Albuterol Sulfate (Ventolin Hfa Inhaler -) 2 puff IH TID PRN PRN Reason: SHORT OF BREATH/WHEEZING Albuterol Sulfate (Ventolin 0.083% Nebulizer Soln -) 1 amp NEB Q4H [facility] Last Admin: 02/09/17 06:51 Dose: 1 amp Aspirin (Asa -) 81 mg PO DAILY [facility] Last Admin: 02/09/17 09:56 Dose: 81 mg Atorvastatin Calcium (Lipitor -) 20 mg PO DAILY [facility] Azithromycin (Zithromax -) 500 mg PO DAILY [facility] Stop: 02/10/17 10:01 Last Admin: 02/09/17 09:59 Dose: 500 mg Chlorthalidone (Hygroton -) 25 mg PO DAILY [facility] Last Admin: 02/09/17 10:13 Dose: 25 mg Cyclobenzaprine HCl (Flexeril -) 5 mg PO PRN [facility] Enoxaparin Sodium (Lovenox -) 40 mg SQ DAILY [facility] Last Admin: 02/09/17 09:58 Dose: 40 mg Estrogens Conjugated (Premarin -) 1.25 mg PO DAILY [facility] Last Admin: 02/09/17 09:59 Dose: 1.25 mg Gabapentin (Neurontin -) 100 mg PO Q8H [facility] Last Admin: 02/09/17 09:58 Dose: 100 mg Guaifenesin/Codeine Phosphate (Robitussin Ac -) 10 ml PO Q8H PRN PRN Reason: COUGH Last Admin: 02/09/17 02:42 Dose: 10 ml Levothyroxine Sodium (Synthroid -) 25 mcg PO AM [facility] Last Admin: 02/09/17 06:34 Dose: 25 mcg Methylprednisolone Sodium Succinate (Solu-Medrol -) 60 mg IVPB Q6H-IV [facility] Last Admin: 02/09/17 09:56 Dose: 60 mg Metoprolol Succinate (Toprol Xl -) 12.5 mg PO HS [facility] Last Admin: 02/08/17 22:45 Dose: 12.5 mg Non-Formulary Medication (Mirabegron [Myrbetriq]) 25 mg PO [facility] Last Admin: 02/09/17 00:04 Dose: 25 mg - Objective Vital Signs: Vital Signs Temperature 97.4 F L 02/09/17 09:42 Pulse Rate 76 02/09/17 09:42 Respiratory Rate 18 02/09/17 09:42 Blood Pressure 147/56 02/09/17 09:42 O2 Sat by Pulse Oximetry (%) 95 02/08/17 22:00 Eyes: Yes: WNL, Conjunctiva Clear, EOM Intact HENT: Yes: WNL, Atraumatic, Normocephalic Neck: Yes: WNL, Supple, Trachea Midline Cardiovascular: Yes: WNL, Regular Rate and Rhythm Respiratory: Yes: WNL, Regular, CTA Bilaterally Gastrointestinal: Yes: WNL, Normal Bowel Sounds Genitourinary: Yes: WNL Musculoskeletal: Yes: WNL Extremities: Yes: WNL Edema: No Integumentary: Yes: WNL Neurological: Yes: WNL, Alert, Oriented ...Motor Strength: WNL Psychiatric: Yes: WNL Labs: CBC, BMP 02/08/17 06:00 02/08/17 06:00 Assessment/Plan Problems (1) COPD exacerbation Assessment/Plan: bronchodilators, steroids, antibiotics per chief human resources officer. Code(s): J44.1 - CHRONIC OBSTRUCTIVE PULMONARY DISEASE W (ACUTE) EXACERBATION (2) Cervical radiculopathy Code(s): M54.12 - RADICULOPATHY, CERVICAL REGION (3) Nasal congestion Code(s): R09.81 - NASAL CONGESTION (4) Diastolic CHF Code(s): I50.30 - UNSPECIFIED DIASTOLIC (CONGESTIVE) HEART FAILURE (5) Aortic regurgitation Assessment/Plan: f/u ECHO for LVEF, valve status (hx significant AR). Code(s): I35.1 - NONRHEUMATIC AORTIC (VALVE) INSUFFICIENCY (6) Coronary artery disease Assessment/Plan: no chest pain. TNI < 0.02. Normal LVEF on 05/2016 ECHO> Hx ?[place]-->coronary angiogram at [facility]: f/u records. Code(s): I25.10 - ATHSCL HEART DISEASE OF [place] CORONARY ARTERY W/O ANG PCTRS (7) Hyperlipidemia Assessment/Plan: start statin; keep LDL cholesterol < 70 mg/dL (presently >130). Code(s): E78.5 - HYPERLIPIDEMIA, UNSPECIFIED
--- NOTE | 2017-02-09 14:55 | PN ---
Teaching Attending Note Name of Resident: Angelo Cast ATTENDING PHYSICIAN STATEMENT I saw and evaluated the patient. I reviewed the resident's note and discussed the case with the resident. I agree with the resident's findings and plan as documented. RESOLVING A/E COPD TAPER MEDROL/ HOPE TO D/C 24-48 HOURS Conrado SEGUNDO MD
[2017-02-09] MEDS: METOPROLOL SUCCINATE 25 MG TAB.SR.24H (FP) PO SCH (22:36)
[2017-02-10] MEDS: ALBUTEROL SO4 0.083% IH SOL 2.5 MG/3 ML VIAL.NEB. NEB SCH ×6 (02:05→21:37)
[2017-02-10] MEDS: methylPREDNISolone NA SUCC 40 MG/1 ML VIAL IVPB SCH ×4 (02:57→22:26)
[2017-02-10] MEDS: guaiFENesin/CODEINE 10 ML UNIT-DOSE CUPS PO PRN (06:28)
[2017-02-10] MEDS: LEVOTHYROXINE NA 25 MCG TABLET (FP) PO SCH (06:28)
--- NOTE | 2017-02-10 09:24 | PN ---
Progress Note, Physician Chief Complaint: Pt A&Ox3; feels better, but still has dyspnea on minimal exertion. History of Present Illness: he patient is a 81 year old white female with a significant past medical history of s/p [place], CAD (hx coronary angiogram at [facility]), COPD, HTN, anxiety, who presents to the emergency department with dyspnea on exertion. This is patient s third visit to the ED in the past 2 days. Patient was instructed to car pick up driver her medications at the pharmacy. She notes that she took her first dose of Z pack today. She notes that she is still experiencing shortness of breath and cough. The patient denies chest pain, and dizziness. Denies fever, chills, nausea, vomit, diarrhea and constipation. Denies dysuria, frequency, urgency and hematuria. Allergies: None Past surgical history: Cholecystectomy Social history: Former smoker. Alcohol use. No drug use reported PMD - Dr. Mccrary - Current Medication List Current Medications: Active Medications Aclidinium [place] (Tudorza -) 1 puff IH BID [facility] Last Admin: 02/09/17 23:45 Dose: 1 puff Albuterol Sulfate (Ventolin Hfa Inhaler -) 2 puff IH TID PRN PRN Reason: SHORT OF BREATH/WHEEZING Albuterol Sulfate (Ventolin 0.083% Nebulizer Soln -) 1 amp NEB Q4H [facility] Last Admin: 02/10/17 06:44 Dose: 1 amp Aspirin (Asa -) 81 mg PO DAILY [facility] Last Admin: 02/09/17 09:56 Dose: 81 mg Atorvastatin Calcium (Lipitor -) 20 mg PO DAILY [facility] Azithromycin (Zithromax -) 500 mg PO DAILY [facility] Stop: 02/10/17 10:01 Last Admin: 02/09/17 09:59 Dose: 500 mg Chlorthalidone (Hygroton -) 25 mg PO DAILY [facility] Last Admin: 02/09/17 10:13 Dose: 25 mg Cyclobenzaprine HCl (Flexeril -) 5 mg PO PRN [facility] Enoxaparin Sodium (Lovenox -) 40 mg SQ DAILY [facility] Last Admin: 02/09/17 09:58 Dose: 40 mg Estrogens Conjugated (Premarin -) 1.25 mg PO DAILY [facility] Last Admin: 02/09/17 09:59 Dose: 1.25 mg Gabapentin (Neurontin -) 100 mg PO 1000,1400,1800 [facility] Last Admin: 02/09/17 17:18 Dose: 100 mg Guaifenesin/Codeine Phosphate (Robitussin Ac -) 10 ml PO Q8H PRN PRN Reason: COUGH Last Admin: 02/10/17 06:28 Dose: 10 ml Levothyroxine Sodium (Synthroid -) 25 mcg PO AM [facility] Last Admin: 02/10/17 06:28 Dose: 25 mcg Methylprednisolone Sodium Succinate (Solu-Medrol -) 60 mg IVPB Q6H-IV [facility] Last Admin: 02/10/17 08:45 Dose: 60 mg Metoprolol Succinate (Toprol Xl -) 12.5 mg PO HS [facility] Last Admin: 02/09/17 22:36 Dose: 12.5 mg Non-Formulary Medication (Mirabegron [Myrbetriq]) 25 mg PO HS [facility] Last Admin: 02/09/17 22:43 Dose: 25 mg - Objective Vital Signs: Vital Signs Temperature 97.2 F L 02/10/17 06:56 Pulse Rate 66 02/10/17 06:56 Respiratory Rate 20 02/10/17 06:56 Blood Pressure 126/55 02/10/17 06:56 O2 Sat by Pulse Oximetry (%) 94 L 02/09/17 21:00 Constitutional: Yes: Anxious Eyes: Yes: WNL ...Rectal Exam: Yes: Deferred Genitourinary: No: Anuria Musculoskeletal: Yes: Muscle Weakness Extremities: Yes: Cool Edema: No Peripheral Pulses WNL: No Peripheral Pulses: Left Doralis Pedis: 1+, Right Dorsalis Pedis: 1+ Neurological: Yes: Alert, Oriented, Weakness Psychiatric: Yes: Alert, Oriented Labs: CBC, BMP 02/08/17 06:00 02/08/17 06:00 Problem List - Problems (1) COPD exacerbation Assessment/Plan: bronchodilators, steroids, antibiotics per endoscopy support specialist. Code(s): J44.1 - CHRONIC OBSTRUCTIVE PULMONARY DISEASE W (ACUTE) EXACERBATION (2) Cervical radiculopathy Code(s): M54.12 - RADICULOPATHY, CERVICAL REGION (3) Nasal congestion Code(s): R09.81 - NASAL CONGESTION (4) Diastolic CHF Assessment/Plan: Continue present medications; F/u BUn/Cr, electrolytes, Is and Os, daily weight. Code(s): I50.30 - UNSPECIFIED DIASTOLIC (CONGESTIVE) HEART FAILURE (5) Aortic regurgitation Assessment/Plan: ECHO: normal LVEF; moderate AR; mild . Code(s): I35.1 - NONRHEUMATIC AORTIC (VALVE) INSUFFICIENCY (6) Coronary artery disease Assessment/Plan: no chest pain. TNI < 0.02. Normal LVEF on 05/2016 ECHO> Hx ?[place]-->coronary angiogram at [facility]: f/u records. Code(s): I25.10 - ATHSCL HEART DISEASE OF [place] CORONARY ARTERY W/O ANG PCTRS (7) Hyperlipidemia Code(s): E78.5 - HYPERLIPIDEMIA, UNSPECIFIED
[2017-02-10] MEDS: AZITHROMYCIN 250 MG TABLET (FP) PO SCH (09:33)
[2017-02-10] MEDS: ASPIRIN 81 MG CHEWABLE TABLETS PO SCH (09:33)
[2017-02-10] MEDS: ATORVASTATIN CA 20 MG TABLET (FP) PO SCH (09:34)
[2017-02-10] MEDS: GABAPENTIN 100 MG CAPSULE (FP) PO SCH ×3 (09:34→17:38)
[2017-02-10] MEDS: ACLIDINIUM BROMIDE 400 MCG/INH AERO.POWD IH SCH ×2 (09:35→22:38)
[2017-02-10] MEDS: ENOXAPARIN NA (PORCINE) 40 MG/0.4 ML DISP.SYRIN SQ SCH (09:41)
[2017-02-10] MEDS ORDERED: PT OWN MED DRAWER 7, Y5N ONE ×2 (10:11→18:35)
[2017-02-10] MEDS: CHLORTHALIDONE 25 MG TABLET PO SCH (10:13)
[2017-02-10 10:26] LABS: BASOPHIL 0.4 % (0-2.0); MCH 28.8 pg (25.7-33.7); MCHC 33.5 g/dl (32.0-36.0); MEAN PLT VOLUME 8.6 fl (7.5-11.1); NEUTROPHILS 94.9 % (42.8-82.8); PLATELET COUNT 345 K/MM3 (134-434); RDW 13.9 % (11.6-15.6); WHITE BLOOD COUNT 18.2 K/mm3 (4.0-10.0)
[2017-02-10] MEDS: ESTROGENS,CONJUGATED 1.25 MG TABLET PO SCH (10:58)
[2017-02-10 11:05] LABS: CALCIUM 9.3 mg/dL (8.5-10.1); COCKROFT - GAULT 29.937; CREATININE 1.1 mg/dL (0.55-1.02); MAGNESIUM 1.9 mg/dL (1.8-2.4)
--- NOTE | 2017-02-10 12:28 | PN ---
Progress Note (short form) - Note Progress Note: PULMONARY/MED Breathing slightly improved. Still dyspneic with exertion. +nonproductive cough and chest tightness. Last Vital Signs Temp Pulse Resp BP Pulse Ox 97.7 F 78 20 155/55 94 L 02/10/17 10:00 02/10/17 10:00 02/10/17 10:00 02/10/17 10:00 02/10/17 09:00 Gen: tachypneic with speaking Heart: RRR Lung: distant breath sounds, no wheezes Abd: soft, nontender Ext: no edema CBC, BMP 02/10/17 09:44 02/10/17 09:44 Active Medications Aclidinium [place] (Tudorza -) 1 puff IH BID [facility] Last Admin: 02/10/17 09:35 Dose: 1 puff Albuterol Sulfate (Ventolin Hfa Inhaler -) 2 puff IH TID PRN PRN Reason: SHORT OF BREATH/WHEEZING Albuterol Sulfate (Ventolin 0.083% Nebulizer Soln -) 1 amp NEB Q4H [facility] Last Admin: 02/10/17 06:44 Dose: 1 amp Aspirin (Asa -) 81 mg PO DAILY [facility] Last Admin: 02/10/17 09:33 Dose: 81 mg Atorvastatin Calcium (Lipitor -) 20 mg PO DAILY [facility] Last Admin: 02/10/17 09:34 Dose: 20 mg Chlorthalidone (Hygroton -) 25 mg PO DAILY [facility] Last Admin: 02/10/17 10:13 Dose: 25 mg Cyclobenzaprine HCl (Flexeril -) 5 mg PO PRN [facility] Enoxaparin Sodium (Lovenox -) 40 mg SQ DAILY [facility] Last Admin: 02/10/17 09:41 Dose: 40 mg Estrogens Conjugated (Premarin -) 1.25 mg PO DAILY [facility] Last Admin: 02/09/17 09:59 Dose: 1.25 mg Gabapentin (Neurontin -) 100 mg PO 1000,1400,1800 [facility] Last Admin: 02/10/17 09:34 Dose: 100 mg Guaifenesin/Codeine Phosphate (Robitussin Ac -) 10 ml PO Q8H PRN PRN Reason: COUGH Last Admin: 02/10/17 06:28 Dose: 10 ml Levothyroxine Sodium (Synthroid -) 25 mcg PO AM [facility] Last Admin: 02/10/17 06:28 Dose: 25 mcg Methylprednisolone Sodium Succinate (Solu-Medrol -) 60 mg IVPB Q6H-IV [place] Last Admin: 02/10/17 08:45 Dose: 60 mg Metoprolol Succinate (Toprol Xl -) 12.5 mg PO HS [facility] Last Admin: 02/09/17 22:36 Dose: 12.5 mg Non-Formulary Medication (Mirabegron [Myrbetriq]) 25 mg PO HS [facility] Last Admin: 02/09/17 22:43 Dose: 25 mg A/P Acute COPD Exacerbation CAD HTN Hypothyroidism Hyperlipidemia Lung Nodule - will decrease medrol to 40mg q8h - inhaled bronchodilators standing and PRN - O2 to keep SpO2 >90% - continue home meds - outpt f/u of lung nodule - DVT prophylaxis
[2017-02-10] MEDS: PATIENT'S OWN MEDICATION (NON-FORMULARY) (Mirabegron [Myrbetriq] 25 MG) PO SCH (22:27)
[2017-02-10] MEDS: METOPROLOL SUCCINATE 25 MG TAB.SR.24H (FP) PO SCH (22:29)
[2017-02-11] MEDS: ALBUTEROL SO4 0.083% IH SOL 2.5 MG/3 ML VIAL.NEB. NEB SCH ×5 (01:46→18:17)
[2017-02-11] MEDS: methylPREDNISolone NA SUCC 40 MG/1 ML VIAL IVPB SCH ×3 (03:15→15:20)
[2017-02-11] MEDS: guaiFENesin/CODEINE 10 ML UNIT-DOSE CUPS PO PRN (03:17)
[2017-02-11] MEDS: LEVOTHYROXINE NA 25 MCG TABLET (FP) PO SCH (06:48)
[2017-02-11] MEDS ORDERED: PT OWN MED DRAWER 7, Y5N ONE (08:59)
[2017-02-11] MEDS: ASPIRIN 81 MG CHEWABLE TABLETS PO SCH (09:02)
[2017-02-11] MEDS: CHLORTHALIDONE 25 MG TABLET PO SCH (09:02)
[2017-02-11] MEDS: ENOXAPARIN NA (PORCINE) 40 MG/0.4 ML DISP.SYRIN SQ SCH (09:03)
[2017-02-11] MEDS: ATORVASTATIN CA 20 MG TABLET (FP) PO SCH (09:03)
[2017-02-11] MEDS: GABAPENTIN 100 MG CAPSULE (FP) PO SCH ×3 (09:03→17:41)
[2017-02-11] MEDS: ACLIDINIUM BROMIDE 400 MCG/INH AERO.POWD IH SCH (09:04)
[2017-02-11] MEDS: ESTROGENS,CONJUGATED 1.25 MG TABLET PO SCH (09:04)
--- NOTE | 2017-02-11 14:07 | PN ---
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
[2017-02-11] MEDS ORDERED: ALBUTEROL NEB PRN (14:08)
[2017-02-11] MEDS ORDERED: [UNRECOGNIZED DRUG - OTHER] IH PRN (14:08)
[2017-02-11] MEDS ORDERED: IPRATROPIUM NEB PRN (14:08)
[2017-02-11] MEDS ORDERED: [UNRECOGNIZED DRUG - OTHER] NEB PRN (14:08)
[2017-02-11] MEDS ORDERED: SODIUM CHLORIDE IH PRN (14:08)
[2017-02-11] MEDS ORDERED: ACETAMINOPHEN PO SCH (14:15)
[2017-02-11] MEDS ORDERED: OXYCODONE HCL PO SCH (14:15)
[2017-02-11] MEDS ORDERED: [UNRECOGNIZED DRUG - OTHER] PO SCH (14:15)
--- NOTE | 2017-02-11 14:35 | PN ---
Progress Note, Physician History of Present Illness: he patient is a 81 year old white female with a significant past medical history of s/p [place], CAD (hx coronary angiogram at [facility]), COPD, HTN, anxiety, who presents to the emergency department with dyspnea on exertion. This is patient s third visit to the ED in the past 2 days. Patient was instructed to fiber picker her medications at the pharmacy. She notes that she took her first dose of Z pack today. She notes that she is still experiencing shortness of breath and cough. The patient denies chest pain, and dizziness. Denies fever, chills, nausea, vomit, diarrhea and constipation. Denies dysuria, frequency, urgency and hematuria. Allergies: None Past surgical history: Cholecystectomy Social history: Former smoker. Alcohol use. No drug use reported PMD - Dr. Mccrary - Current Medication List Current Medications: Active Medications Aclidinium [place] (Tudorza -) 1 puff IH BID [facility] Last Admin: 02/11/17 09:04 Dose: 1 puff Albuterol Sulfate (Ventolin Hfa Inhaler -) 2 puff IH TID PRN PRN Reason: SHORT OF BREATH/WHEEZING Albuterol Sulfate (Ventolin 0.083% Nebulizer Soln -) 1 amp NEB Q4H [facility] Last Admin: 02/11/17 10:40 Dose: 1 amp Aspirin (Asa -) 81 mg PO DAILY [facility] Last Admin: 02/11/17 09:02 Dose: 81 mg Atorvastatin Calcium (Lipitor -) 20 mg PO DAILY [facility] Last Admin: 02/11/17 09:03 Dose: 20 mg Chlorthalidone (Hygroton -) 25 mg PO DAILY [facility] Last Admin: 02/11/17 09:02 Dose: 25 mg Cyclobenzaprine HCl (Flexeril -) 5 mg PO PRN [facility] Enoxaparin Sodium (Lovenox -) 40 mg SQ DAILY [facility] Last Admin: 02/11/17 09:03 Dose: 40 mg Estrogens Conjugated (Premarin -) 1.25 mg PO DAILY [place] Last Admin: 02/11/17 09:04 Dose: 1.25 mg Gabapentin (Neurontin -) 100 mg PO 1000,1400,1800 [facility] Last Admin: 02/11/17 13:22 Dose: 100 mg Guaifenesin/Codeine Phosphate (Robitussin Ac -) 10 ml PO Q8H PRN PRN Reason: COUGH Last Admin: 02/11/17 03:17 Dose: 10 ml Levothyroxine Sodium (Synthroid -) 25 mcg PO AM [facility] Last Admin: 02/11/17 06:48 Dose: 25 mcg Methylprednisolone Sodium Succinate (Solu-Medrol -) 60 mg IVPB Q6H-IV [facility] Last Admin: 02/11/17 09:02 Dose: 60 mg Metoprolol Succinate (Toprol Xl -) 12.5 mg PO HS [facility] Last Admin: 02/10/17 22:29 Dose: 12.5 mg Non-Formulary Medication (Mirabegron [Myrbetriq]) 25 mg PO HS [facility] Last Admin: 02/10/17 22:27 Dose: 25 mg Non-Formulary Medication (Albuterol 2.5/Ipratropium 0.5 [Duoneb -]) 1 neb NEB TID PRN PRN Reason: SHORT OF BREATH/WHEEZING Non-Formulary Medication (Oxycodone Hcl/Acetaminophen [Percocet 5-325 Mg Tablet] ) 1 tab PO PRN [facility] Non-Formulary Medication (Sodium Chloride Inhalation [Normal Saline For Inhalation -]) 3 ml IH Q6H PRN PRN Reason: COUGH - Objective Vital Signs: Vital Signs Temperature 97.8 F 02/11/17 14:00 Pulse Rate 82 02/11/17 14:00 Respiratory Rate 18 02/11/17 14:00 Blood Pressure 130/64 02/11/17 14:00 O2 Sat by Pulse Oximetry (%) 93 L 02/11/17 09:00 Eyes: Yes: WNL, Conjunctiva Clear, EOM Intact HENT: Yes: WNL, Atraumatic, Normocephalic Neck: Yes: WNL, Supple, Trachea Midline Cardiovascular: Yes: WNL, Regular Rate and Rhythm Respiratory: Yes: WNL, Regular, CTA Bilaterally Gastrointestinal: Yes: WNL, Normal Bowel Sounds Genitourinary: Yes: WNL Musculoskeletal: Yes: WNL Extremities: Yes: WNL Edema: No Integumentary: Yes: WNL Neurological: Yes: WNL, Alert, Oriented ...Motor Strength: WNL Psychiatric: Yes: WNL Labs: CBC, BMP 02/10/17 09:44 02/10/17 09:44 Assessment/Plan - Problems (1) COPD exacerbation Assessment/Plan: bronchodilators, steroids, antibiotics per patient support associate. Code(s): J44.1 - CHRONIC OBSTRUCTIVE PULMONARY DISEASE W (ACUTE) EXACERBATION (2) Cervical radiculopathy Code(s): M54.12 - RADICULOPATHY, CERVICAL REGION (3) Nasal congestion Code(s): R09.81 - NASAL CONGESTION (4) Diastolic CHF Assessment/Plan: Continue present medications; F/u BUn/Cr, electrolytes, Is and Os, daily weight. Code(s): I50.30 - UNSPECIFIED DIASTOLIC (CONGESTIVE) HEART FAILURE (5) Aortic regurgitation Assessment/Plan: ECHO: normal LVEF; moderate AR; mild . Code(s): I35.1 - NONRHEUMATIC AORTIC (VALVE) INSUFFICIENCY (6) Coronary artery disease Assessment/Plan: no chest pain. TNI < 0.02. Normal LVEF on 05/2016 ECHO> Hx ?[place]-->coronary angiogram at [facility]: f/u records. Code(s): I25.10 - ATHSCL HEART DISEASE OF [place] CORONARY ARTERY W/O ANG PCTRS (7) Hyperlipidemia Code(s): E78.5 - HYPERLIPIDEMIA, UNSPECIFIED
[2017-02-11 19:03] VITALS: BP 155/61; PULSE 79; TEMP 97.5
== END 2017-02-11 19:19 | disposition home or self-care (01) | DRG 191 ==
LOC: JER 22:01 → JERBED 23:47 → J5S 02-08 18:10
PROVIDERS: ADMIT Internal Medicine; ATTEND Specialist
DX: J44.1 Chronic obstructive pulmonary disease with (acute) exacerbation (principal); I50.32 Chronic diastolic (congestive) heart failure; I25.10 Atherosclerotic heart disease of native coronary artery without angina pectoris; I25.2 Old myocardial infarction; Z87.891 Personal history of nicotine dependence; Z99.81 Dependence on supplemental oxygen; E87.6 Hypokalemia; K59.00 Constipation, unspecified; R91.1 Solitary pulmonary nodule; N32.81 Overactive bladder; E83.39 Other disorders of phosphorus metabolism; F41.9 Anxiety disorder, unspecified; M54.12 Radiculopathy, cervical region; I35.1 Nonrheumatic aortic (valve) insufficiency; E78.5 Hyperlipidemia, unspecified; I11.0 Hypertensive heart disease with heart failure
CPT/HCPCS: 36415; 70220-TC; 71010-TC; 80048; 80053; 82550; 82803; 83735; 83880; 84100; 84484; 85025; 87254; 87804; 93005; 93010; 93306-TC; 94150; 94640; 99282-25; 99284-25; J1410

== ENCOUNTER 2017-02-13 22:03 | Inpatient (IN) | payer OTHER ==
[2017-02-13] MEDS ORDERED: ASPIRIN 81 MG CHEWABLE TABLETS PO ONE (22:23)
--- NOTE | 2017-02-13 22:23 | PDOC ---
History of Present Illness - General History Source: Patient Exam Limitations: No Limitations <Taras Guzman - Last Filed: 02/14/17 00:47> <Crystal Brower - Last Filed: 02/14/17 17:23> - General Chief Complaint: Chest Pain Stated Complaint: CHEST PAIN Time Seen by Provider: 02/13/17 22:22 - History of Present Illness Initial Comments: 02/14/17 00:47 The patient is a 81 year old white female with a significant past medical history of s/p [place], CAD (hx coronary angiogram at [facility]), COPD, HTN, anxiety, who presents to the emergency department with difficulty breathing at home. She is oxygen dependent at home. She bumped up her oxygen at home, but is still hypoxic and still has difficulty breathing. The patient denies chest pain, and dizziness. Denies fever, chills, nausea, vomit, diarrhea and constipation. Denies dysuria, frequency, urgency and hematuria. Allergies: None Past surgical history: Cholecystectomy Social history: Former smoker. Alcohol use. No drug use reported PMD - Dr. Mccrary (Taras Guzman) Past History <Taras Guzman - Last Filed: 02/14/17 00:47> - Past Medical History Cancer: Yes (UTERINE) Cardiac Disorders: Yes (2 ID'S) COPD: Yes HTN: Yes Thyroid Disease: Yes - Surgical History Abdominal Surgery: Yes (BLOCK[place]) Cholecystectomy: Yes - Immunization History Immunization Up to Date: Yes - Psycho/Social/Smoking Cessation Hx Anxiety: No Suicidal Ideation: No Smoking Status: Yes Smoking History: Never smoked Have you smoked in the past 12 months: No Number of Cigarettes Smoked Daily: 10 If you are a former smoker, when did you quit?: 5 years ago Information on smoking cessation initiated: No 'Breaking Loose' booklet given: 11/20/12 Hx Alcohol Use: No Drug/Substance Use Hx: No Substance Use Type: None Hx Substance Use Treatment: No <Crystal Brower - Last Filed: 02/14/17 17:23> - Past Medical History Allergies/Adverse Reactions: Allergies Allergy/AdvReac Type Severity Reaction Status Date / Time No Known Allergies Allergy Verified 02/13/17 22:16 Home Medications: Ambulatory Orders Albuterol Sulfate Inhaler - [Ventolin HFA Inhaler -] 1 - 2 inh IH TID PRN Estrogens,Conjugated [Premarin] 1.25 mg PO DAILY 11/16/12 Levothyroxine [Synthroid -] 25 mcg PO DAILY 11/16/12 Metoprolol Succinate [Toprol XL -] 12.5 mg PO HS 11/16/12 Albuterol 2.5/Ipratropium 0.5 [Duoneb -] 1 neb NEB TID PRN 02/19/15 Aspirin [ASA -] 81 mg PO DAILY 02/19/15 Mirabegron [Myrbetriq] 25 mg PO DAILY 02/19/15 Cyclobenzaprine HCl [Flexeril -] 5 mg PO PRN 10/02/16 Oxycodone HCl/Acetaminophen [Percocet 5-325 mg Tablet] 1 tab PO PRN 10/02/16 Chlorthalidone [Hygroton -] 25 mg PO DAILY 02/06/17 Gabapentin [Neurontin -] 100 mg PO Q8H 02/06/17 Acetaminophen [Tylenol .Regular Strength -] 325 mg PO ONCE PRN #0 tablet Review of Systems - Review of Systems Able to Perform ROS?: Yes <Taras Guzman - Last Filed: 02/14/17 00:47> <Crystal Brower - Last Filed: 02/14/17 17:23> - Review of Systems Comments:: 02/14/17 00:47 CONSTITUTIONAL: Absent: fever, chills, diaphoresis, generalized weakness, malaise, loss of appetite HEENT: Absent: rhinorrhea, nasal congestion, throat pain, throat swelling, difficulty swallowing, mouth swelling, ear pain, eye pain, visual Changes CARDIOVASCULAR: Absent: chest pain, syncope, palpitations, irregular heart rate, lightheadedness , peripheral edema RESPIRATORY: Present: Difficulty breathing. Absent: cough, dyspnea with exertion, orthopnea, wheezing, stridor, hemoptysis GASTROINTESTINAL: Absent: abdominal pain, abdominal distension, nausea, vomiting, diarrhea, constipation, melena, hematochezia GENITOURINARY: Absent: dysuria, frequency, urgency, hesitancy, hematuria, flank pain, genital pain MUSCULOSKELETAL: Absent: myalgia, arthralgia, joint swelling SKIN: Absent: rash, itching, pallor HEMATOLOGIC/IMMUNOLOGIC: Absent: easy bleeding, easy bruising, lymphadenopathy, frequent infections ENDOCRINE: Absent: unexplained weight gain, unexplained weight loss, heat intolerance, cold intolerance NEUROLOGIC: Absent: headache, focal weakness or paresthesias, dizziness, unsteady gait, seizure, mental status changes, bladder or bowel incontinence PSYCHIATRIC: Absent: anxiety, depression, suicidal or homicidal ideation, hallucinations. ( Taras Guzman) *Physical Exam <Taras Guzman - Last Filed: 02/14/17 00:47> <Crystal Brower - Last Filed: 02/14/17 17:23> - Vital Signs Last Vital Signs Temp Pulse Resp BP Pulse Ox 98.2 F 102 H 20 136/77 96 02/14/17 14:00 02/14/17 14:00 02/14/17 14:00 02/14/17 14:00 02/14/17 12:00 - Physical Exam Comments: 02/14/17 00:48 GENERAL: Well developed, well nourished. Awake and alert. No acute distress. HEENT: Normocephalic, atraumatic. PERRLA, EOMI. No conjunctival pallor. Sclera are non- icteric. Moist mucous membranes. Oropharynx is clear. NECK: Supple. Full ROM. No JVD. Carotid pulses 2+ and symmetric, without bruits. No thyromegaly. No lymphadenopathy. CARDIOVASCULAR: Regular rate and rhythm. No murmurs, rubs, or gallops. Distal pulses are 2+ and symmetric. PULMONARY: No evidence of respiratory distress. Lungs clear to auscultation bilaterally. No wheezing, rales or rhonchi. ABDOMINAL: Soft. Non-tender. Non-distended. No rebound or guarding. No organomegaly. Normoactive bowel sounds. MUSCULOSKELETAL Normal range of motion at all joints. No bony deformities or tenderness. No CVA tenderness. EXTREMITIES: No cyanosis. No clubbing. No edema. No calf tenderness. SKIN: Warm and dry. Normal capillary refill. No rashes. No jaundice. NEUROLOGICAL: Alert, awake, appropriate. Cranial nerves 2-12 intact. No deficits to light touch and temperature in face, upper extremities and lower extremities. No motor deficits in the in face, upper extremities and lower extremities. Normoreflexic in the upper and lower extremities. Normal speech. Toes are down-going bilaterally. Gait is normal without ataxia. PSYCHIATRIC: Cooperative. Good eye contact. Appropriate mood and affect. (Taras Guzman) ED Treatment Course - LABORATORY CBC & Chemistry Diagram: 02/13/17 23:35 02/13/17 23:35 <Taras Guzman - Last Filed: 02/14/17 00:47> - LABORATORY CBC & Chemistry Diagram: 02/14/17 08:17 02/14/17 08:17 <Crystal Brower - Last Filed: 02/14/17 17:23> - ADDITIONAL ORDERS Additional order review: 02/13/17 23:35 RBC 4.58 MCV 85.1 MCHC 33.3 RDW 13.9 MPV 8.2 Neutrophils % 83.4 H Lymphocytes % 8.6 D Monocytes % 7.6 D Eosinophils % 0.1 D Basophils % 0.3 - RADIOLOGY Radiology Studies Ordered: Category Date Time Status CHEST X-RAY PORTABLE* [RAD] Stat Radiology 02/13/17 22:24 Completed - Medications Given in the ED: ED Medications Discontinued Medications Generic Name Dose Route Start Last Admin Trade Name Freq PRN Reason Stop Dose Admin Aclidinium [place] 1 puff 02/14/17 10:00 02/14/17 10:08 Tudorza - IH Not Given BID [place] Albuterol/Ipratropium 1 amp 02/13/17 22:45 02/13/17 23:30 Duoneb - NEB 02/13/17 23:31 1 amp Q15M [place] Administration Aspirin 162 mg 02/13/17 22:23 02/13/17 23:00 Asa - PO 02/13/17 22:24 162 mg ONCE ONE Administration Levothyroxine Sodium 25 mcg 02/14/17 07:00 02/14/17 07:50 Synthroid - PO 25 mcg AM [place] Administration Magnesium Oxide 400 mg 02/14/17 10:00 02/14/17 10:08 Mag-Ox - PO 02/14/17 10:01 Not Given ONCE ONE Magnesium Oxide 400 mg 02/14/17 13:00 02/14/17 13:01 Mag-Ox - PO 02/14/17 13:01 400 mg ONCE ONE Administration Methylprednisolone Sodium Succinate 125 mg 02/13/17 22:38 02/13/17 23:00 Solu-Medrol - IVPB 02/13/17 22:39 125 mg ONCE ONE Administration Montelukast Sodium 10 mg 02/14/17 04:43 02/14/17 05:50 Singulair - PO 02/14/17 04:44 10 mg ONCE ONE Administration Potassium Chloride 40 meq 02/14/17 00:44 02/14/17 02:30 K-Dur - PO 02/14/17 00:45 40 meq ONCE ONE Administration Medical Decision Making <Taras Guzman - Last Filed: 02/14/17 00:47> <Crystal Brower - Last Filed: 02/14/17 17:23> - Medical Decision Making 02/14/17 17:21 81 yo female with PMH of copd with oxygen dependence at home p/w copd exacerbation -initially pulse ox 88% on room air with scattered wheezing in all lung garcia -with supplemental [place] oxygen and resp tx she improved but was extremely anxious and did not want to go home since she had been admitted several times in the ;ast few weeks (Crystal Brower) *DC/Admit/Observation/Transfer <Taras Guzman - Last Filed: 02/14/17 00:47> - Discharge Dispostion Admit: Yes <Crystal Brower - Last Filed: 02/14/17 17:23> Diagnosis at time of Disposition: COPD exacerbation - Referrals - Attestations Scribe Attestion: 02/14/17 00:48 Documentation prepared by Taras Guzmna, acting as medical staff physician for Crystal Brower MD. (Taras Guzman)
[2017-02-13] MEDS ORDERED: methylPREDNISolone NA SUCC 125 MG/2 ML VIAL IVPB ONE (22:38)
[2017-02-13] MEDS: ALBUTEROL SO4 2.5/IPRATROPIUM 0.5 INH SOL 3 ML VIAL.NEB. NEB SCH ×4 (22:40→23:30)
[2017-02-13] MEDS ORDERED: ASPIRIN 81 MG CHEWABLE TABLETS ONE (22:56)
[2017-02-13] MEDS ORDERED: methylPREDNISolone NA SUCC 125 MG/2 ML VIAL ONE (22:56)
[2017-02-13] MEDS ORDERED: ALBUTEROL SO4 2.5/IPRATROPIUM 0.5 INH SOL 3 ML VIAL.NEB. NEB ONE (22:57)
[2017-02-13 23:44] LABS: BASOPHIL 0.3 % (0-2.0); EOSINOPHIL 0.1 % (0-4.5); MCH 28.3 pg (25.7-33.7); MCHC 33.3 g/dl (32.0-36.0); MEAN CELL VOLUME 85.1 fl (80-96); MEAN PLT VOLUME 8.2 fl (7.5-11.1); NEUTROPHILS 83.4 % (42.8-82.8); PLATELET COUNT 419 K/MM3 (134-434); RDW 13.9 % (11.6-15.6); WHITE BLOOD COUNT 17.8 K/mm3 (4.0-10.0)
[2017-02-13 23:56] LABS: URINE APPEARANCE SLCLOUDY; URINE BILIRUBIN NEGATIVE (NEGATIVE); URINE BLOOD NEGATIVE (NEGATIVE); URINE COLOR YELLOW; URINE GLUCOSE (UA) NEGATIVE (NEGATIVE); URINE KETONE TRACE (NEGATIVE); URINE LEUK ESTERASE NEGATIVE (NEGATIVE); URINE NITRITE NEGATIVE (NEGATIVE); URINE PROTEIN NEGATIVE (NEGATIVE); URINE UROBILINOGEN NEGATIVE E.U./dl (0.2-1.0)
[2017-02-13 23:58] LABS: INR 1.02 (0.82-1.09); PROTHROMBIN TIME (PATIENT) 11.2 SEC (9.98-11.88)
[2017-02-14 00:10] LABS: ALBUMIN 3.4 g/dl (3.4-5.0); BILIRUBIN,TOTAL 0.5 mg/dL (0.2-1.0); CALCIUM 9.8 mg/dL (8.5-10.1); COCKROFT - GAULT 32.351; MAGNESIUM 1.5 mg/dL (1.8-2.4); TOT PROT 6.6 g/dl (6.4-8.2)
[2017-02-14 00:14] LABS: TROPONIN I 0.02 ng/ml (0.00-0.05)
[2017-02-14] MEDS ORDERED: POTASSIUM CHLORIDE TABS 20 MEQ TABLET.ER (FP) PO ONE ×2 (00:44→03:15)
--- NOTE | 2017-02-14 03:58 | HP ---
CHIEF COMPLAINT: shortness of breath PCP: Dr. Mccrary HISTORY OF PRESENT ILLNESS: 81 yr old woman with COPD, HTN, CAD, NM x2, presents to the ED for shortness of breath since 5pm this evening. She was sitting outside in the garden visiting family in a wooded area all morning and was comfortable eating/talking/ ambulating all day. When she went home at 5pm she started to have trouble breathing a/w with dry cough, "felt like lungs were closing" and began to get anxious which made her breathing more difficult, it was also worse with movement. She tried her inhalers and 5L of O2 via nasal cannula without any relief, her HR was 106, BP 160/80, which are both high for her. Denies chest pain, lightheadedness, syncope, dizziness, N/V, abdominal pain, fever, diarrhea, LE edema, sick contacts, new foods. Recent discharge on Tuesday from [facility] (02/07-02/11), was not discharged on steroids or abx. 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 chronic neck pain hypothyroidism SBO PAST SURGICAL HISTORY: - hysterectomy for cervical cancer cholecystectomy ex-lap Social History: Smokin/2 pk/30-40 yrs, quit 6yrs ago Alcohol: rare glass of wine Drugs: denies Family History: [place] Allergies No Known Allergies Allergy (Verified 02/13/17 22:16) HOME MEDICATIONS: Home Medications Medication Instructions Recorded Albuterol Sulfate Inhaler - 1 - 2 inh IH TID PRN 11/16/12 [Ventolin HFA Inhaler -] Estrogens,Conjugated [Premarin] 1.25 mg PO DAILY 11/16/12 Levothyroxine [Synthroid -] 25 mcg PO DAILY 11/16/12 Metoprolol Succinate [Toprol XL -] 12.5 mg PO HS 11/16/12 Albuterol 2.5/Ipratropium 0.5 1 neb NEB TID PRN 02/19/15 [Duoneb -] Aspirin [ASA -] 81 mg PO DAILY 02/19/15 Mirabegron [Myrbetriq] 25 mg PO DAILY 02/19/15 Cyclobenzaprine HCl [Flexeril -] 5 mg PO PRN 10/02/16 Oxycodone HCl/Acetaminophen 1 tab PO PRN 10/02/16 [Percocet 5-325 mg Tablet] Chlorthalidone [Hygroton -] 25 mg PO DAILY 02/06/17 Gabapentin [Neurontin -] 100 mg PO Q8H 02/06/17 Acetaminophen [Tylenol .Regular 325 mg PO ONCE PRN #0 tablet 02/11/17 Strength -] REVIEW OF SYSTEMS CONSTITUTIONAL: Absent: fever, chills, diaphoresis, generalized weakness, malaise, loss of appetite, weight change HEENT: Absent: rhinorrhea, nasal congestion, throat pain, throat swelling, difficulty swallowing, mouth swelling, ear pain, eye pain, visual changes CARDIOVASCULAR: Absent: chest pain, syncope, palpitations, irregular heart rate, lightheadedness , peripheral edema RESPIRATORY: Present: cough, shortness of breath, dyspnea with exertion Absent: orthopnea, wheezing, stridor, hemoptysis GASTROINTESTINAL: Present: constipation, Absent: abdominal pain, abdominal distension, nausea, vomiting, diarrhea, melena, hematochezia GENITOURINARY: Absent: dysuria, frequency, urgency, hesitancy, hematuria, flank pain, genital pain MUSCULOSKELETAL: Absent: myalgia, arthralgia, joint swelling, back pain, neck pain SKIN: Absent: rash, itching, pallor HEMATOLOGIC/IMMUNOLOGIC: Absent: easy bleeding, easy bruising, lymphadenopathy, frequent infections ENDOCRINE: Absent: unexplained weight gain, unexplained weight loss, heat intolerance, cold intolerance NEUROLOGIC: Absent: headache, focal weakness or paresthesias, dizziness, unsteady gait, seizure, mental status changes, bladder or bowel incontinence PSYCHIATRIC: Absent: anxiety, depression, suicidal or homicidal ideation, hallucinations. PHYSICAL EXAMINATION GENERAL: Awake, alert, and fully oriented, in no acute distress. thin elderly woman, able to speak in full sentences without sob. sitting comfortably in bed. HEAD: Normal with no signs of trauma. EYES: Pupils equal, round and reactive to light, extraocular movements intact, sclera anicteric, conjunctiva clear. No lid lag. EARS, NOSE, THROAT: Ears normal, nares patent, oropharynx clear with thrush, pharyngeal erythema. dry mucous membranes. NECK: Normal range of motion, supple without lymphadenopathy, JVD, or masses. LUNGS: Breath sounds diminished from midlung to bases b/l, poor air entry. No accessory muscle use. HEART: Regular rate and rhythm, normal S1 and S2 without murmur, rub or gallop. ABDOMEN: Soft, nontender, not distended, normoactive bowel sounds, no guarding, no rebound, no masses. MUSCULOSKELETAL: Normal range of motion at all joints. No bony deformities or tenderness. No CVA tenderness. UPPER EXTREMITIES: 2+ pulses, warm, well-perfused. No cyanosis. No clubbing. No peripheral edema. ecchymoses b/l forearms, nonblanching/nontender. LOWER EXTREMITIES: 2+ pulses, warm, well-perfused. No calf tenderness. No peripheral edema. NEUROLOGICAL: Cranial nerves II-XII intact. Normal speech. Normal gait. PSYCHIATRIC: Cooperative. Good eye contact. Appropriate mood and affect. Laboratory Results - last 24 hr 02/13/17 02/13/17 02/13/17 23:30 23:35 23:35 WBC 17.8 H RBC 4.58 Hgb 13.0 Hct 39.0 MCV 85.1 MCHC 33.3 RDW 13.9 Plt Count 419 D MPV 8.2 Neutrophils % 83.4 H Lymphocytes % 8.6 D Monocytes % 7.6 D Eosinophils % 0.1 D Basophils % 0.3 INR 1.02 Sodium Potassium Chloride Carbon Dioxide Anion Gap BUN Creatinine Creat Clearance w eGFR Random Glucose Calcium Magnesium Total Bilirubin AST ALT Alkaline Phosphatase Creatine Kinase CK-MB (CK-2) Troponin I B-Natriuretic Peptide Total Protein Albumin Urine Color Yellow Urine Appearance Slcloudy Urine pH 7.0 Ur Specific [place] 1.021 Urine Protein Negative Urine Glucose (UA) Negative Urine Ketones Trace H Urine Blood Negative Urine Nitrite Negative Urine Bilirubin Negative Urine Urobilinogen Negative Ur Leukocyte Esterase Negative 02/13/17 02/13/17 23:35 23:35 WBC RBC Hgb Hct MCV MCHC RDW Plt Count MPV Neutrophils % Lymphocytes % Monocytes % Eosinophils % Basophils % INR Sodium 140 Potassium 3.2 L Chloride 96 L Carbon Dioxide 33 H D Anion Gap 11 BUN 24 H Creatinine 1.0 Creat Clearance w eGFR 52.95 Random Glucose 98 D Calcium 9.8 Magnesium 1.5 L D Total Bilirubin 0.5 D AST 33 D ALT 33 D Alkaline Phosphatase 62 D Creatine Kinase 200 H D CK-MB (CK-2) 6.007 H Troponin I 0.02 B-Natriuretic Peptide 224.48 Total Protein 6.6 Albumin 3.4 Urine Color Urine Appearance Urine pH Ur Specific [place] Urine Protein Urine Glucose (UA) Urine Ketones Urine Blood Urine Nitrite Urine Bilirubin Urine Urobilinogen Ur Leukocyte Esterase ASSESSMENT/PLAN: 81 yr old woman with COPD on home oxygen prn with chronic steroid use, HTN recently dc'ed from [facility] presents to the ED with SOB admitted for COPD exacerbation. #COPD exacerbation - unlikely to be infectious(pt is afebrile, no infiltrate on chestxy, flu swab 02/09 negative), likely exacerbated by environmental exposure - solu-medrol 40mg IVPB q6hr - Duonebs albuterol q4hrs prn - Guaifenesin/Codeine 5ml q8hr prn for cough - tudorza, ventolin daily - singulair 10mg po - peak flow measurements - nasal cannula 2lpm, maintain sat >90% - Dr. Mccrary consulted #Oral thrush - nystatin swish and swallow q6hr po #HypoK - repleted in ED #HypoMag - Mg ox 400mg po #Diastolic CHF - no lower extremity edema/pulmonary effusion, BNP 224.48. - monitor daily weights for exacerbation, currently low suspicion for CHF exacerbation #CAD - Atorvastatin 20mg po #Cervical radiculopathy - gabapentin solution 100ml q8hr (change from pills as pt has been unable to swallow large pills due to thrush and underlying congenital narrowing of pharynx ) - flexaril 5mg po prn q24hr #leucocytosis - decreased from previous admission, pt is afebrile without infectious symptoms, likely due to steriod use. - if febrile will send cxs #HTN - chlorthalidone 25mg po qd - toprol XL 12.5mg po HS #Hypothyroidism - 25mcg qd po #Constipation, intermittent - currently asymptomatic - prune juice prn #Urinary frequency - continue home medication: myrbetriq #Diet: low sodium soft #DVT: lovenox sq Code status: Full code, consents to intubation. at beside verbalized understanding of patient's resuscitation wishes. Visit type - Emergency Visit Emergency Visit: Yes ED Registration Date: 02/14/17 Care time: The patient presented to the Emergency Department on the above date and was hospitalized for further evaluation of their emergent condition. - New Patient This patient is new to me today: Yes Date on this admission: 02/14/17 - Critical Care Critical Care patient: No
[2017-02-14] MEDS ORDERED: ALBUTEROL SO4 2.5/IPRATROPIUM 0.5 INH SOL 3 ML VIAL.NEB. NEB PRN ×3 (04:11→16:27)
[2017-02-14] MEDS ORDERED: ALBUTEROL SO4 6.7 GM HFA INHALER IH PRN (04:11)
[2017-02-14] MEDS ORDERED: CYCLOBENZAPRINE HCL 10 MG TABLET (FP) PO SCH (04:15)
[2017-02-14] MEDS ORDERED: MONTELUKAST NA 10 MG TABLET PO ONE (04:43)
--- NOTE | 2017-02-14 05:55 | PN ---
Teaching Attending Note Name of Resident: Karen Batista ATTENDING PHYSICIAN STATEMENT I saw and evaluated the patient. I reviewed the resident's note and discussed the case with the resident. I agree with the resident's findings and plan as documented. SUBJECTIVE: 81 year old female with history of COPD ( O2 dependent) presents c/ o worsening SOB x 1 day that has not responded to nebulizer treatments . Was hypoxic upon presentation to 83% which improved after oxygen and nebulizers . Denies fevers, chest pain , cough , sputum . No sick contacts . PMH CAD HTN COPD VT Hypothyroidism SBO PSX Hysterectomy Ex Lap Cholecystectomy ALL - NKDA MEDS reviewed Social 40 p/y smoking history , quit 5-6 years ago OBJECTIVE: Vital Signs Temperature 98.2 F 02/13/17 22:16 Pulse Rate 94 H 02/13/17 22:16 Respiratory Rate 18 02/13/17 22:16 Blood Pressure 150/68 02/13/17 22:16 O2 Sat by Pulse Oximetry (%) 95 02/13/17 22:21 GENERAL: Awake, alert, and fully oriented, in no acute distress. thin elderly woman, able to speak in full sentences without sob. sitting comfortably in bed. HEAD: Normal with no signs of trauma. EYES: Pupils equal, round and reactive to light, extraocular movements intact, sclera anicteric, conjunctiva clear. No lid lag. EARS, NOSE, THROAT: Ears normal, nares patent, oropharynx clear with thrush, pharyngeal erythema. dry mucous membranes. NECK: Normal range of motion, supple without lymphadenopathy, JVD, or masses. LUNGS: Poor air entry. No accessory muscle use. HEART: Regular rate and rhythm, normal S1 and S2 without murmur, rub or gallop. ABDOMEN: Soft, nontender, not distended, normoactive bowel sounds, no guarding, no rebound, no masses. MUSCULOSKELETAL: Normal range of motion at all joints. No bony deformities or tenderness. No CVA tenderness. UPPER EXTREMITIES: 2+ pulses, warm, well-perfused. No cyanosis. No clubbing. No peripheral edema. ecchymoses b/l forearms, nonblanching/nontender. LOWER EXTREMITIES: 2+ pulses, warm, well-perfused. No calf tenderness. No peripheral edema. NEUROLOGICAL: Cranial nerves II-XII intact. Normal speech. Normal gait. PSYCHIATRIC: Cooperative. Good eye contact. Appropriate mood and affect. Abnormal Lab Results 02/13/17 02/13/17 02/13/17 23:30 23:35 23:35 WBC 17.8 H Neutrophils % 83.4 H Potassium 3.2 L Chloride 96 L Carbon Dioxide 33 H D BUN 24 H Magnesium 1.5 L D Creatine Kinase 200 H D CK-MB (CK-2) 6.007 H Urine Ketones Trace H CXR - no acute infiltrate ASSESSMENT AND PLAN: # COPD exacerbation - c/w O 2 - IV steroids Q 6HR WITH SLOW TAPER - Pulmonology evaluation #Leukocytosis - chronic. Possibly myelodysplastic. No evidence of acute infectious process. # Electrolyte imbalance - supplement K and Mag -follow repeat BMP # DVT ppx - Lovenox Anticipated length of treatment with IV steroids including slow tapering is greater then 2 midnights. Admit as an inpatient .
[2017-02-14] MEDS ORDERED: GABAPENTIN 250 MG/5 ML ORAL SOLUTION, 470 ML BOTTLE PO SCH (06:00)
[2017-02-14] MEDS ORDERED: MONTELUKAST NA 10 MG TABLET ONE (06:14)
[2017-02-14] MEDS ORDERED: LEVOTHYROXINE NA 75 MCG TABLET (FP) PO SCH (07:00)
[2017-02-14] MEDS: NYSTATIN 500,000 UNITS/5 ML SUSPENSION PO SCH ×3 (07:50→17:16)
--- NOTE | 2017-02-14 07:53 | PN ---
Physical Exam: SUBJECTIVE: Patient seen and examined at bed side this morning. Still complaining of shortness of breath during exertion but feels better than yesterday. Has dry cough on/off. No other complaints. Denies chest pain, palpitation, abdominal pain, nausea or vomiting. Bladder habit normal. Usually moves her bowel once in 3-4 days. Last bowel movement was yesterday. Patient mentioned she uses home oxygen on/off whenever she needs it. Was seen in the ED for shortness of breath on 02/06/2017 and 02/07/17; admitted on 02/07/17 with the diagnosis of COPD exacerbation and discharged on 02/11/2017. OBJECTIVE: Vital Signs Period Temp Pulse Resp BP Sys/Sawyer Pulse Ox Last 24 Hr 98.3 F 89 18 147/69 93 GENERAL: The patient is awake, alert, and fully oriented, in no acute distress. HEAD: Normal with no signs of trauma. EYES: PERRL, extraocular movements intact, sclera anicteric, conjunctiva clear. No ptosis. ENT: Ears normal, moist mucous membranes. NECK: Trachea midline, full range of motion, supple. LUNGS: B/L equal air entry, Breath sounds decreased bilaterally at the bases, clear to auscultation bilaterally, no wheezes, no crackles, no accessory muscle use. HEART: Regular rate and rhythm, S1, S2, soft systolic murmur. ABDOMEN: Soft, nontender, nondistended, normoactive bowel sounds, no guarding, no rebound, no hepatosplenomegaly, no masses. EXTREMITIES: 2+ pulses, warm, well-perfused, no edema. NEUROLOGICAL: Cranial nerves II through XII grossly intact. Normal speech, gait not observed. PSYCH: Normal mood, normal affect. SKIN: Multiple ecchymosis on the extremities and abdomen which is non tender, Warm, dry, normal turgor, no rashes or lesions noted Active Medications Generic Name Dose Route Start Last Admin Trade Name Freq PRN Reason Stop Dose Admin Aclidinium [place] 1 puff 02/14/17 10:00 Tudorza - IH BID [place] Albuterol Sulfate 2 puff 02/14/17 04:11 Ventolin Hfa Inhaler - IH Q8H PRN SHORT OF BREATH/WHEEZING Albuterol/Ipratropium 1 amp 02/14/17 04:38 Duoneb - NEB Q4H PRN SHORT OF BREATH/[place]EZ[place] Aspirin 81 mg 02/14/17 10:00 Asa - PO DAILY [facility] Atorvastatin Calcium 20 mg 02/14/17 22:00 Lipitor - PO HS [facility] Chlorthalidone 25 mg 02/14/17 10:00 [place] - PO DAILY [facility] Cyclobenzaprine HCl 5 mg 02/14/17 04:49 Flexeril - PO Q24H PRN MODERATE PAIN Enoxaparin Sodium 40 mg 02/14/17 10:00 Lovenox - SQ DAILY [facility] Estrogens Conjugated 1.25 mg 02/14/17 10:00 Premarin - PO DAILY [facility] Gabapentin 100 mg 02/14/17 09:00 Neurontin Oral Liquid - PO Q8H [facility] Guaifenesin/Codeine Phosphate 5 ml 02/14/17 04:36 Robitussin Ac - PO Q8H PRN COUGH Levothyroxine Sodium 25 mcg 02/14/17 07:00 Synthroid - PO AM [facility] Magnesium Oxide 400 mg 02/14/17 10:00 Mag-Ox - PO 02/14/17 10:01 ONCE ONE Methylprednisolone Sodium Succinate 40 mg 02/14/17 09:00 Solu-Medrol - IVPB Q6H-IV [place] Metoprolol Succinate 12.5 mg 02/14/17 22:00 Toprol Xl - PO HS [facility] Non-Formulary Medication 25 mg 02/14/17 10:00 Mirabegron [Myrbetriq] PO DAILY [facility] Nystatin 500,000 units 02/14/17 06:00 Nystatin Oral Suspension - PO Q6HPO [facility] ASSESSMENT/PLAN: Patient is a 81 year old woman with significant past medical history of COPD on home oxygen with chronic steroid use, HTN recently discharged from [facility] presented to the ED with SOB admitted for COPD exacerbation. # COPD exacerbation Less likely due to infection- Chest exam-bilateral lungs clear, CXR-no acute pathology Patient presented with SOB even at rest, no improvement with nebulizers and 5L oxygen On arrival, patient was afebrile, hypoxic to 87 %; leukocytosis (could be due to prolonged steroid use) CXR-No acute pathology Admitted in Med-surg Nasal oxygen @ 2L Maintain saturation between 88-90 % IV Methylprednisolone 40mg IVPB Q6H Duoneb Q4H discontinued Albuterol PRN Guaifenesin/Codeine 5ml q8hr prn for cough Tudorza BID Dr. Mccrary consult placed # Oral thrush likely due to nebulizer Nystatin swish and spit Patient mentions she doesn't want to use the steroid nebulizer because she developed oral thrush # Increased Creatinine Kinase- unknown etiology which resolved CK-200---->125; Repeat CK-MB normal. Troponin x 2 negative # Electrolyte abnormalities- Hypokalemia and Hypomagnesemia - Potassium repleted in ED - Mg ox 400mg po stat given # Diastolic CHF - Not in exacerbation BNP 224.48. # Hypertension- stable - Continue Chlorthalidone 25mg po qd - Toprol XL 12.5mg po HS #CAD - Continue Atorvastatin 20mg po # Hypothyroidism - Continue Levothyroxine 25mcg qd po # Urinary frequency - continue home medication myrbetriq. Patient said she will get it from home since we don't carry the medication. #Cervical radiculopathy - Gabapentin solution 100ml q8hr - Flexaril 5mg po prn Once a day # FEN Not on IV fluids Electrolytes repleted Low sodium soft diet # Prophylaxis For DVT: lovenox sq For GI: Not indicated # Code status: Full code. Illness, Investigation and Plan of care explained to the patient. She verbalized understanding. Case discussed with Dr. Singleton. Visit type - Emergency Visit Emergency Visit: Yes ED Registration Date: 02/14/17 Care time: The patient presented to the Emergency Department on the above date and was hospitalized for further evaluation of their emergent condition. - New Patient This patient is new to me today: Yes Date on this admission: 02/14/17 - Critical Care Critical Care patient: No
[2017-02-14] MEDS ORDERED: LEVOTHYROXINE NA 25 MCG TABLET (FP) PO SCH (08:35)
[2017-02-14 08:38] LABS: MCHC 33.7 g/dl (32.0-36.0); MEAN CELL VOLUME 86.1 fl (80-96); MEAN PLT VOLUME 8.1 fl (7.5-11.1); PLATELET COUNT 370 K/MM3 (134-434); WHITE BLOOD COUNT 21.8 K/mm3 (4.0-10.0)
[2017-02-14 09:01] LABS: ALBUMIN 3.4 g/dl (3.4-5.0); ANION GAP 10 (8-16); BILIRUBIN,TOTAL 0.6 mg/dL (0.2-1.0); CALCIUM 9.2 mg/dL (8.5-10.1); CO2 32 mmol/L (21-32); CREATININE 1.1 mg/dL (0.55-1.02); GLUCOSE,RANDOM 187 mg/dL (74-106); MAGNESIUM 1.5 mg/dL (1.8-2.4); SGOT/AST 27 U/L (15-37); SGPT/ALT 35 U/L (12-78); TOT PROT 6.4 g/dl (6.4-8.2)
[2017-02-14 09:02] LABS: ALK PHOS 62 U/L (45-117)
[2017-02-14] MEDS: GABAPENTIN 250 MG/5 ML ORAL SOLUTION, 470 ML BOTTLE PO SCH ×2 (09:50→17:16)
[2017-02-14] MEDS: methylPREDNISolone NA SUCC 40 MG/1 ML VIAL IVPB SCH ×3 (10:00→21:23)
[2017-02-14] MEDS ORDERED: PATIENT'S OWN MEDICATION (NON-FORMULARY) (Mirabegron [Myrbetriq] 25 MG) PO SCH (10:00)
[2017-02-14] MEDS ORDERED: MAGNESIUM OXIDE 400 MG TABLET (FP) PO ONE ×2 (10:00→13:00)
[2017-02-14] MEDS ORDERED: ACLIDINIUM BROMIDE 400 MCG/INH AERO.POWD IH SCH (10:00)
[2017-02-14] MEDS: ENOXAPARIN NA (PORCINE) 40 MG/0.4 ML DISP.SYRIN SQ SCH (10:08)
[2017-02-14] MEDS: ESTROGENS,CONJUGATED 1.25 MG TABLET PO SCH (10:08)
[2017-02-14] MEDS: CHLORTHALIDONE 25 MG TABLET PO SCH (10:08)
[2017-02-14] MEDS: ASPIRIN 81 MG CHEWABLE TABLETS PO SCH (10:08)
[2017-02-14 11:00] LABS: TROPONIN I < 0.02 ng/ml (0.00-0.05)
--- NOTE | 2017-02-14 11:44 | MSN ---
Progress Note (short form) - Note Progress Note: Saw patient this AM. Patient appears to be in no distress and is alert and oriented to person, time, and place. Patient states that her breathing has gotten better since last night and is close to baseline. Patient does not complain of any new complaints. Patient states that she still has shortness of breath while ambulating to the bathroom. She also still has a dry cough with no sputum. Patient has oral thrush likely from chronic inhaler use. Patient currently on 3L Nasal Cannula (home oxygen level) @ 95% sats. Patient's elevated troponins have resolved. CK-MB elevated at 6.007 last night, CK dropped from 200 to 125. EKG is unremarkable. Patient's WBC elevated from 17.8 to 21.8, however this is likely due to steroid use. Consulted Dr. Mccrary. Will continue to monitor patient's vitals and labs. Current Medications Generic Name Dose Route Start Last Admin Trade Name Freq PRN Reason Stop Dose Admin Aclidinium [place] 1 puff 02/14/17 10:00 02/14/17 10:08 Tudorza - IH Not Given BID [place] Albuterol Sulfate 2 puff 02/14/17 04:11 Ventolin Hfa Inhaler - IH Q8H PRN SHORT OF BREATH/[place] Albuterol/Ipratropium 1 amp 02/14/17 04:38 Duoneb - NEB Q4H PRN SHORT OF BREATH/[place]HEEZ[place] Aspirin 81 mg 02/14/17 10:00 02/14/17 10:08 Asa - PO 81 mg DAILY [place] Administration Atorvastatin Calcium 20 mg 02/14/17 22:00 Lipitor - PO HS [place] Chlorthalidone 25 mg 02/14/17 10:00 02/14/17 10:08 [place] - PO 25 mg DAILY [place] Administration Cyclobenzaprine HCl 5 mg 02/14/17 04:49 Flexeril - PO Q24H PRN MODERATE PAIN Enoxaparin Sodium 40 mg 02/14/17 10:00 02/14/17 10:08 Lovenox - SQ 40 mg DAILY [place] Administration Estrogens Conjugated 1.25 mg 02/14/17 10:00 02/14/17 10:08 Premarin - PO 1.25 mg DAILY [place] Administration Gabapentin 100 mg 02/14/17 09:00 02/14/17 09:50 Neurontin Oral Liquid - PO 100 mg Q8H [place] Administration Guaifenesin/Codeine Phosphate 5 ml 02/14/17 04:36 Robitussin Ac - PO Q8H PRN COUGH Levothyroxine Sodium 25 mcg 02/15/17 07:00 Synthroid - PO AM [place] Methylprednisolone Sodium Succinate 40 mg 02/14/17 09:00 02/14/17 10:00 Solu-Medrol - IVPB 40 mg Q6H-IV [place] Administration Metoprolol Succinate 12.5 mg 02/14/17 22:00 Toprol Xl - PO HS [place] Non-Formulary Medication 25 mg 02/14/17 10:00 Mirabegron [Myrbetriq] PO DAILY [place] Nystatin 500,000 units 02/14/17 06:00 02/14/17 07:50 Nystatin Oral Suspension - PO 500,000 units Q6HPO [place] Administration Vital Signs Period Temp Pulse Resp BP Sys/Sawyer Pulse Ox Last 24 Hr 98.1 F-98.3 F 76-94 18-18 137-150/59-69 87-95 PHYSICAL EXAM GENERAL: Alert, oriented to time and place, in no apparent respiratory distress EYES: PERRLA, EOMI, conjunctiva clear ENT: Ears normal, nares patent NECK: No JVD, trachea midline HEART: Regular rate, rhythm. +S1, S2, no murmurs, gallops LUNGS: Equal breath sounds bilaterally, no wheezes, rhonchi ABDOMEN: Soft, nontender, normoactive bowel sounds in all four quadrants NEURO: environmental web crawler intact, normal speech, gait not observed MSK: Muscle strength 5/5 globally, no weakness EXTREMITIES: 2+ pulses bilaterally, no edema, warm, well perfused Laboratory Results - last 24 hr 02/13/17 02/13/17 02/13/17 23:30 23:35 23:35 WBC 17.8 H RBC 4.58 Hgb 13.0 Hct 39.0 MCV 85.1 MCHC 33.3 RDW 13.9 Plt Count 419 D MPV 8.2 Neutrophils % 83.4 H Lymphocytes % 8.6 D Monocytes % 7.6 D Eosinophils % 0.1 D Basophils % 0.3 INR 1.02 Sodium Potassium Chloride Carbon Dioxide Anion Gap BUN Creatinine Creat Clearance w eGFR Random Glucose Calcium Magnesium Total Bilirubin AST ALT Alkaline Phosphatase Creatine Kinase CK-MB (CK-2) Troponin I B-Natriuretic Peptide Total Protein Albumin Urine Color Yellow Urine Appearance Slcloudy Urine pH 7.0 Ur Specific [place] 1.021 Urine Protein Negative Urine Glucose (UA) Negative Urine Ketones Trace H Urine Blood Negative Urine Nitrite Negative Urine Bilirubin Negative Urine Urobilinogen Negative Ur Leukocyte Esterase Negative 02/13/17 02/13/17 02/14/17 23:35 23:35 08:17 WBC 21.8 H RBC 4.50 Hgb 13.0 Hct 38.7 MCV 86.1 MCHC 33.7 RDW 14.0 Plt Count 370 MPV 8.1 Neutrophils % Y Lymphocytes % Y Monocytes % Eosinophils % Basophils % INR Sodium 140 Potassium 3.2 L Chloride 96 L Carbon Dioxide 33 H D Anion Gap 11 BUN 24 H Creatinine 1.0 Creat Clearance w eGFR 52.95 Random Glucose 98 D Calcium 9.8 Magnesium 1.5 L D Total Bilirubin 0.5 D AST 33 D ALT 33 D Alkaline Phosphatase 62 D Creatine Kinase 200 H D CK-MB (CK-2) 6.007 H Troponin I 0.02 B-Natriuretic Peptide 224.48 Total Protein 6.6 Albumin 3.4 Urine Color Urine Appearance Urine pH Ur Specific [place] Urine Protein Urine Glucose (UA) Urine Ketones Urine Blood Urine Nitrite Urine Bilirubin Urine Urobilinogen Ur Leukocyte Esterase 02/14/17 02/14/17 08:17 08:17 WBC RBC Hgb Hct MCV MCHC RDW Plt Count MPV Neutrophils % Lymphocytes % Monocytes % Eosinophils % Basophils % INR Sodium 138 Potassium 3.9 D Chloride 96 L Carbon Dioxide 32 Anion Gap 10 BUN 25 H Creatinine 1.1 H Creat Clearance w eGFR 47.43 Random Glucose 187 H D Calcium 9.2 Magnesium 1.5 L Total Bilirubin 0.6 AST 27 ALT 35 Alkaline Phosphatase 62 Creatine Kinase 125 Cancelled CK-MB (CK-2) Troponin I < 0.02 Cancelled B-Natriuretic Peptide Total Protein 6.4 Albumin 3.4 Urine Color Urine Appearance Urine pH Ur Specific [place] Urine Protein Urine Glucose (UA) Urine Ketones Urine Blood Urine Nitrite Urine Bilirubin Urine Urobilinogen Ur Leukocyte Esterase CXR (02/13/17): No acute pathology. No change of an adverse nature since 02/07/17 CXR (02/14/17): Normal chest film ASSESSMENT/PLAN 81 y/o F with PMHx of COPD, discharged 02/11/17 for COPD exacerbation, presents to ED with shortness of breath, admitted for acute COPD exacerbation 1. Shortness of breath secondary to acute COPD exacerbation -Improving -Currently 95% on 3L nasal cannula (home oxygen), maintain > 90% -Solu-medrol 40 mg IVPB Q6Hr -Duonebs Q4H PRN -Singulair 10 mg PO -Tudorza 1 puff IH BID [place] -Continue peak flow measurements -Dr. Mccrary consult appreciated -Continue to monitor vitals, labs 2. Oral Thrush -Continue Nystatin Q6H 3. Hypokalemia -Improved (3.2 to 3.9) -Repleted in ED 4. Hypomag -Stable at 1.5 -Continue Magnesium supplementation 400 mg PO 5. CAD -EKG unremarkable -Continue Atorvastatin 6. Cervical radiculopathy -Continue Gabapentin, Flexaril 7. Leukocytosis -Increased from 17.8 to 21.8 -Likely secondary to steroid use 8. HTN -Stable -Continue home meds 9. Hypothyroidism -Stable -Continue home meds 10. Urinary frequency -Stable -Continue home meds 11. DVT PPx -Continue lovenox Dispo: Med/surg
--- NOTE | 2017-02-14 13:06 | CON.PULM ---
Consult Consult Specialty:: PULM/CCM Referred by:: HALI Reason for Consultation:: SOB - History of Present Illness Chief Complaint: SOB History of Present Illness: 81 F, known yo me from previous admissions. COPD on home O2 due to previous smoking, HTN, CAD, and OR x2. Reports 3 ER visits in the past 2 weeks. Admitted on 02/07 and discharged ion 02/11 (reports that she was not given steroids). [place] entire [place] without issues. On her way back home developed increasing SOB. Used her albuterol nebulizer with no relief. She then tried using supplemental O2 up to 4 L NC with no significant improvement. She then went to her window and tried to take deep breaths of "fresh air" Since her symptoms persisted she had her drive her to the ER. Reports that there may have been a component of anxiety that made her symptoms worse. No sick contacts. fever, or chills. No hemoptysis. - History Source History Provided By: Patient Limitations to Obtaining History: No Limitations - Past Medical History Cardio/Vascular: Yes: CAD, HTN, OR Pulmonary: Yes: Bronchitis, COPD ...: No - Alcohol/Substance Use Hx Alcohol Use: No - Smoking History Smoking history: Former smoker Have you smoked in the past 12 months: No Aproximately how many cigarettes per day: 10 If you are a former smoker, when did you quit?: 13 yrs ago Home Medications - Allergies Allergies/Adverse Reactions: Allergies Allergy/AdvReac Type Severity Reaction Status Date / Time No Known Allergies Allergy Verified 02/13/17 22:16 - Home Medications Home Medications: Ambulatory Orders Albuterol Sulfate Inhaler - [Ventolin HFA Inhaler -] 1 - 2 inh IH TID PRN Estrogens,Conjugated [Premarin] 1.25 mg PO DAILY 11/16/12 Levothyroxine [Synthroid -] 25 mcg PO DAILY 11/16/12 Metoprolol Succinate [Toprol XL -] 12.5 mg PO HS 11/16/12 Albuterol 2.5/Ipratropium 0.5 [Duoneb -] 1 neb NEB TID PRN 02/19/15 Aspirin [ASA -] 81 mg PO DAILY 02/19/15 Mirabegron [Myrbetriq] 25 mg PO DAILY 02/19/15 Cyclobenzaprine HCl [Flexeril -] 5 mg PO PRN 10/02/16 Oxycodone HCl/Acetaminophen [Percocet 5-325 mg Tablet] 1 tab PO PRN 10/02/16 Chlorthalidone [Hygroton -] 25 mg PO DAILY 02/06/17 Gabapentin [Neurontin -] 100 mg PO Q8H 02/06/17 Acetaminophen [Tylenol .Regular Strength -] 325 mg PO ONCE PRN #0 tablet Review of Systems - Review of Systems Constitutional: denies: Chills, Fever, Malaise, Night Sweats Eyes: reports: No Symptoms HENT: reports: No Symptoms Neck: reports: No Symptoms Cardiovascular: reports: Shortness of Breath. denies: Chest Pain, Edema, Palpitations Respiratory: reports: Cough, SOB, SOB on Exertion, Wheezing. denies: Hemoptysis Gastrointestinal: reports: No Symptoms Genitourinary: reports: No Symptoms Breasts: reports: No Symptoms Reported Musculoskeletal: reports: No Symptoms Integumentary: reports: No Symptoms Neurological: reports: No Symptoms Endocrine: reports: No Symptoms Hematology/Lymphatic: reports: No Symptoms Psychiatric: reports: No Symptoms Physical Exam Vital Sings: Vital Signs Temperature 98.1 F 02/14/17 11:18 Pulse Rate 76 02/14/17 11:18 Respiratory Rate 18 02/14/17 11:18 Blood Pressure 148/59 02/14/17 11:18 O2 Sat by Pulse Oximetry (%) 95 02/14/17 10:00 Constitutional: Yes: No Distress, Anxious, Thin Eyes: Yes: Conjunctiva Clear, EOM Intact, Tearing HENT: Yes: Atraumatic Neck: Yes: Supple, Trachea Midline Cardiovascular: Yes: Regular Rate and Rhythm Respiratory: Yes: Cough, On Nasal O2, Rhonchi, SOB, Wheezes. No: Accessory Muscle Use, Rales, Stridor, Tachypnea ...Inspection: Yes: WNL ...Clubbing: No Gastrointestinal: Yes: Normal Bowel Sounds, Soft Renal/: Yes: WNL Musculoskeletal: Yes: WNL Extremities: Yes: WNL Edema: No Peripheral Pulses WNL: Yes Integumentary: Yes: WNL Neurological: Yes: WNL, Alert, Oriented ...Motor Strength: WNL Psychiatric: Yes: WNL, Alert, Oriented Labs: CBC, BMP 02/14/17 08:17 02/14/17 08:17 Imaging - Results Chest X-ray: Report Reviewed, Image Reviewed Problem List - Problems (1) COPD exacerbation Code(s): J44.1 - CHRONIC OBSTRUCTIVE PULMONARY DISEASE W (ACUTE) EXACERBATION (2) Aortic regurgitation Code(s): I35.1 - NONRHEUMATIC AORTIC (VALVE) INSUFFICIENCY (3) Cervical radiculopathy Code(s): M54.12 - RADICULOPATHY, CERVICAL REGION (4) Coronary artery disease Code(s): I25.10 - ATHSCL HEART DISEASE OF [place] CORONARY ARTERY W/O ANG PCTRS (5) Cough Code(s): R05 - COUGH (6) Diastolic CHF Code(s): I50.30 - UNSPECIFIED DIASTOLIC (CONGESTIVE) HEART FAILURE (7) HTN (hypertension) Code(s): I10 - ESSENTIAL (PRIMARY) HYPERTENSION (8) Hyperlipidemia Code(s): E78.5 - HYPERLIPIDEMIA, UNSPECIFIED (9) Nasal congestion Code(s): R09.81 - NASAL CONGESTION (10) Shortness of breath Code(s): R06.02 - SHORTNESS OF BREATH (11) Lung nodule Code(s): R91.1 - SOLITARY PULMONARY NODULE Assessment/Plan PLAN: IV Medrol O2 as needed BD TX Tudroza D/C Duoneb -> avoid using 2 anti-cholinergic agents Monitor off ABX Will need to follow on PFTs as an outpatient Will follow Thank you. Dr Phan
[2017-02-14] MEDS ORDERED: PT OWN MED DRAWER 7, Y5N ONE ×2 (13:11→16:58)
[2017-02-14] MEDS: ALBUTEROL SO4 0.083% IH SOL 2.5 MG/3 ML VIAL.NEB. NEB SCH ×2 (14:20→23:15)
[2017-02-14 14:37] LABS: PLATELET ESTIMATE ADEQUATE (NORMAL)
--- NOTE | 2017-02-14 15:08 | EKG ---
Test Reason : Blood Pressure : / mmHG Vent. Rate : 097 BPM Atrial Rate : 097 BPM P-R Int : 146 ms QRS Dur : 070 ms QT Int : 328 ms P-R-T Axes : 071 -17 054 degrees QTc Int : 416 ms POOR DATA QUALITY, INTERPRETATION MAY BE ADVERSELY AFFECTED NORMAL SINUS RHYTHM POSSIBLE LEFT ATRIAL ENLARGEMENT SEPTAL INFARCT (CITED ON OR BEFORE 06-FEB-2017) ABNORMAL ECG WHEN COMPARED WITH ECG OF 06-FEB-2017 23:26, COMPARED TO EKG NO SIGNIFICANT CHANGE IS FOUND Confirmed by TAYLOR MARLOW MD ([id number]) on 02/14/2017 3:08:15 PM Referred By: Confirmed By:TAYLOR MARLOW MD
--- NOTE | 2017-02-14 17:00 | PN ---
Teaching Attending Note Name of Resident: Deborah Ortiz ATTENDING PHYSICIAN STATEMENT I saw and evaluated the patient. I reviewed the resident's note and discussed the case with the resident. I agree with the resident's findings and plan as documented. SUBJECTIVE: Patient feels better. OBJECTIVE: Vital Signs Period Temp Pulse Resp BP Sys/Sawyer Pulse Ox Last 24 Hr 98.1 F-98.3 F 76-102 18-20 136-150/59-77 87-96 HEART: S1 S2, RRR LUNGS: Decreased breath sounds bilaterally ABDOMEN: Soft, non-tender, non-distended, normal BS EXTREMITIES: No edema ASSESSMENT AND PLAN: This is an 81-year-old woman with a history of COPD, chronic steroid use, HTN, chronic diastolic heart failure, cervical radiculopathy who presented to the ER with SOB. 1. Acute exacerbation of COPD - Improving - Pulmonary consult appreciated - Continue SoluMedrol, Tudorza, Albuterol nebs as needed, oxygen 2. Oral candidiasis - Continue Nystatin swish and swallow 3. Hypokalemia - Improved 4. Hypomagnesemia - Continue MagOx 5. Chronic diastolic heart failure - Stable 6. CAD - Continue aspirin, Toprol XL, Lipitor 7. Cervical radiculopathy - Continue Neurontin, Flexeril as needed 8. Hypertension - Continue Chlorthalidone, Toprol XL 9. Hypothyroidism - Continue Synthroid
[2017-02-14] MEDS: ATORVASTATIN CA 20 MG TABLET (FP) PO SCH (21:23)
[2017-02-14] MEDS ORDERED: METOPROLOL SUCCINATE 25 MG TAB.SR.24H (FP) PO SCH (22:00)
[2017-02-14] MEDS: ACLIDINIUM BROMIDE 400 MCG/INH AERO.POWD IH SCH (22:00)
[2017-02-15] MEDS ORDERED: PT OWN MED DRAWER 7, Y5N ONE ×6 (00:18→15:26)
[2017-02-15] MEDS: NYSTATIN 500,000 UNITS/5 ML SUSPENSION PO SCH ×4 (00:22→18:23)
[2017-02-15] MEDS: GABAPENTIN 250 MG/5 ML ORAL SOLUTION, 470 ML BOTTLE PO SCH ×3 (00:27→18:23)
[2017-02-15] MEDS: methylPREDNISolone NA SUCC 40 MG/1 ML VIAL IVPB SCH ×4 (02:22→21:41)
[2017-02-15] MEDS: CYCLOBENZAPRINE HCL 10 MG TABLET (FP) PO PRN (02:28)
[2017-02-15] MEDS: guaiFENesin/CODEINE 5 ML UNIT-DOSE CUPS PO PRN ×2 (02:28→21:55)
[2017-02-15] MEDS: LEVOTHYROXINE NA 25 MCG TABLET (FP) PO SCH (06:05)
[2017-02-15] MEDS: ALBUTEROL SO4 0.083% IH SOL 2.5 MG/3 ML VIAL.NEB. NEB SCH ×2 (06:31→22:20)
--- NOTE | 2017-02-15 09:24 | PN ---
Progress Note (short form) - Note Progress Note: Feels better today. Was able to get some sleep last night. Less wheezing. No CP. Intake & Output 02/12/17 02/13/17 02/14/17 02/15/17 23:59 23:59 23:59 23:59 Intake Total 470 Output Total 2 1 Balance 468 -1 Weight 106 lb 102 lb 8 oz Last Vital Signs Temp Pulse Resp BP Pulse Ox 97.4 F L 73 20 143/79 98 02/15/17 06:56 02/15/17 06:56 02/15/17 06:56 02/15/17 06:56 02/14/17 21:00 Active Medications Aclidinium [place] (Tudorza -) 1 puff IH BID [facility] Last Admin: 02/14/17 22:00 Dose: 1 puff Albuterol Sulfate (Ventolin 0.083% Nebulizer Soln -) 1 amp NEB TID [facility] Last Admin: 02/15/17 06:31 Dose: 1 amp Aspirin (Asa -) 81 mg PO DAILY [facility] Last Admin: 02/14/17 10:08 Dose: 81 mg Atorvastatin Calcium (Lipitor -) 20 mg PO HS [facility] Last Admin: 02/14/17 21:23 Dose: 20 mg Chlorthalidone (Hygroton -) 25 mg PO DAILY [facility] Last Admin: 02/14/17 10:08 Dose: 25 mg Cyclobenzaprine HCl (Flexeril -) 5 mg PO Q24H PRN PRN Reason: MODERATE PAIN Last Admin: 02/15/17 02:28 Dose: 5 mg Enoxaparin Sodium (Lovenox -) 40 mg SQ DAILY [facility] Last Admin: 02/14/17 10:08 Dose: 40 mg Estrogens Conjugated (Premarin -) 1.25 mg PO DAILY [facility] Last Admin: 02/14/17 10:08 Dose: 1.25 mg Gabapentin (Neurontin Oral Liquid -) 100 mg PO Q8H [facility] Last Admin: 02/15/17 00:27 Dose: 100 mg Guaifenesin/Codeine Phosphate (Robitussin Ac -) 5 ml PO Q8H PRN PRN Reason: COUGH Last Admin: 02/15/17 02:28 Dose: 5 ml Levothyroxine Sodium (Synthroid -) 25 mcg PO AM [facility] Last Admin: 02/15/17 06:05 Dose: 25 mcg Methylprednisolone Sodium Succinate (Solu-Medrol -) 40 mg IVPB Q6H-IV [facility] Last Admin: 02/15/17 02:22 Dose: 40 mg Metoprolol Succinate (Toprol Xl -) 12.5 mg PO HS [facility] Last Admin: 02/14/17 21:24 Dose: 12.5 mg Non-Formulary Medication (Mirabegron [Myrbetriq]) 25 mg PO DAILY [facility] Nystatin (Nystatin Oral Suspension -) 500,000 units PO Q6HPO [facility] Last Admin: 02/15/17 06:05 Dose: 500,000 units Constitutional: Yes: No Distress, Anxious, Thin Eyes: Yes: Conjunctiva Clear, EOM Intact, Tearing HENT: Yes: Atraumatic Neck: Yes: Supple, Trachea Midline Cardiovascular: Yes: Regular Rate and Rhythm Respiratory: Yes: Cough, On Nasal O2, Rhonchi, SOB, less Wheezes. No: Accessory Muscle Use, Rales, Stridor, Tachypnea ...Inspection: Yes: WNL ...Clubbing: No Gastrointestinal: Yes: Normal Bowel Sounds, Soft Renal/: Yes: WNL Musculoskeletal: Yes: WNL Extremities: Yes: WNL Edema: No Peripheral Pulses WNL: Yes Integumentary: Yes: WNL Neurological: Yes: WNL, Alert, Oriented ...Motor Strength: WNL Psychiatric: Yes: WNL, Alert, Oriented Labs: Laboratory Results - last 24 hr 02/14/17 02/14/17 02/14/17 08:17 08:17 08:17 Neutrophils % 98.0 H Lymphocytes % 2.0 L D Differential Comment Manual diff done Platelet Estimate Adequate Creatine Kinase 125 Cancelled Troponin I < 0.02 Cancelled Problem List - Problems (1) COPD exacerbation Code(s): J44.1 - CHRONIC OBSTRUCTIVE PULMONARY DISEASE W (ACUTE) EXACERBATION (2) Aortic regurgitation Code(s): I35.1 - NONRHEUMATIC AORTIC (VALVE) INSUFFICIENCY (3) Cervical radiculopathy Code(s): M54.12 - RADICULOPATHY, CERVICAL REGION (4) Coronary artery disease Code(s): I25.10 - ATHSCL HEART DISEASE OF [place] CORONARY ARTERY W/O ANG PCTRS (5) Cough Code(s): R05 - COUGH (6) Diastolic CHF Code(s): I50.30 - UNSPECIFIED DIASTOLIC (CONGESTIVE) HEART FAILURE (7) HTN (hypertension) Code(s): I10 - ESSENTIAL (PRIMARY) HYPERTENSION (8) Hyperlipidemia Code(s): E78.5 - HYPERLIPIDEMIA, UNSPECIFIED (9) Nasal congestion Code(s): R09.81 - NASAL CONGESTION (10) Shortness of breath Code(s): R06.02 - SHORTNESS OF BREATH (11) Lung nodule Code(s): R91.1 - SOLITARY PULMONARY NODULE Assessment/Plan PLAN: Taper IV Medrol -> If stable/improved in AM can likely change to Prednisone O2 as needed BD TX Tudroza Avoid using 2 anti-cholinergic agents Monitor off ABX Will need to follow on PFTs as an outpatient Dr Phan Problem List - Problems (1) COPD exacerbation Code(s): J44.1 - CHRONIC OBSTRUCTIVE PULMONARY DISEASE W (ACUTE) EXACERBATION (2) Aortic regurgitation Code(s): I35.1 - NONRHEUMATIC AORTIC (VALVE) INSUFFICIENCY (3) Cervical radiculopathy Code(s): M54.12 - RADICULOPATHY, CERVICAL REGION (4) Coronary artery disease Code(s): I25.10 - ATHSCL HEART DISEASE OF [place] CORONARY ARTERY W/O ANG PCTRS (5) Cough Code(s): R05 - COUGH (6) Diastolic CHF Code(s): I50.30 - UNSPECIFIED DIASTOLIC (CONGESTIVE) HEART FAILURE (7) HTN (hypertension) Code(s): I10 - ESSENTIAL (PRIMARY) HYPERTENSION (8) Hyperlipidemia Code(s): E78.5 - HYPERLIPIDEMIA, UNSPECIFIED (9) Nasal congestion Code(s): R09.81 - NASAL CONGESTION (10) Shortness of breath Code(s): R06.02 - SHORTNESS OF BREATH (11) Lung nodule Code(s): R91.1 - SOLITARY PULMONARY NODULE
[2017-02-15] MEDS: ENOXAPARIN NA (PORCINE) 40 MG/0.4 ML DISP.SYRIN SQ SCH (09:30)
[2017-02-15] MEDS: CHLORTHALIDONE 25 MG TABLET PO SCH (09:30)
[2017-02-15] MEDS: ASPIRIN 81 MG CHEWABLE TABLETS PO SCH (09:30)
[2017-02-15] MEDS: ACLIDINIUM BROMIDE 400 MCG/INH AERO.POWD IH SCH ×3 (09:31→21:55)
[2017-02-15] MEDS: ESTROGENS,CONJUGATED 1.25 MG TABLET PO SCH (09:31)
[2017-02-15] MEDS ORDERED: ALBUTEROL SO4 0.083% IH SOL 2.5 MG/3 ML VIAL.NEB. NEB PRN (11:54)
--- NOTE | 2017-02-15 14:43 | MSN ---
Progress Note (short form) - Note Progress Note: Saw patient this AM. Patient states that her breathing has improved and she is close to baseline. Patient did feel short of breath last night and her oxygen was raised from 2.5 to 3L. She states that she still feels short of breath when she ambulates to the bathroom. Patient's oral thrush has also improved with Nystatin. Pulmonology consult appreciated. Patient's Duonebs have been discontinued. Patient's steroids have been tapered from every 6 to every 12 hours. Patient will need F/U with Dr. Valenzuela once discharged. Will continue to monitor patient's labs and vitals. Current Medications Generic Name Dose Route Start Last Admin Trade Name Freq PRN Reason Stop Dose Admin Aclidinium [place] 1 puff 02/14/17 22:00 02/15/17 09:45 Tudorza - IH Not Given BID [place] Albuterol Sulfate 1 amp 02/14/17 14:00 02/15/17 06:31 Ventolin 0.083% Nebulizer Soln - NEB 1 amp TID [place] Administration Albuterol Sulfate 1 amp 02/15/17 11:54 Ventolin 0.083% Nebulizer Soln - NEB Q4H PRN SHORT OF BREATH/WHEEZING Aspirin 81 mg 02/14/17 10:00 02/15/17 09:30 Asa - PO 81 mg DAILY [place] Administration Atorvastatin Calcium 20 mg 02/14/17 22:00 02/14/17 21:23 Lipitor - PO 20 mg HS [place] Administration Chlorthalidone 25 mg 02/14/17 10:00 02/15/17 09:30 Hygroton - PO 25 mg DAILY [place] Administration Cyclobenzaprine HCl 5 mg 02/14/17 04:49 02/15/17 02:28 Flexeril - PO 5 mg Q24H PRN Administration MODERATE PAIN Enoxaparin Sodium 40 mg 02/14/17 10:00 02/15/17 09:30 Lovenox - SQ 40 mg DAILY [place] Administration Estrogens Conjugated 1.25 mg 02/14/17 10:00 02/15/17 09:31 Premarin - PO 1.25 mg DAILY [place] Administration Gabapentin 100 mg 02/14/17 09:00 02/15/17 10:50 Neurontin Oral Liquid - PO 100 mg Q8H [place] Administration Guaifenesin/Codeine Phosphate 5 ml 02/14/17 04:36 02/15/17 02:28 Robitussin Ac - PO 5 ml Q8H PRN Administration COUGH Levothyroxine Sodium 25 mcg 02/15/17 07:00 02/15/17 06:05 Synthroid - PO 25 mcg AM [place] Administration Methylprednisolone Sodium Succinate 40 mg 02/15/17 09:30 02/15/17 09:30 Solu-Medrol - IVPB 40 mg Q12H [place] Administration Metoprolol Succinate 12.5 mg 02/14/17 22:00 02/14/17 21:24 Toprol Xl - PO 12.5 mg HS [place] Administration Non-Formulary Medication 25 mg 02/14/17 10:00 Mirabegron [Myrbetriq] PO DAILY [place] Nystatin 500,000 units 02/14/17 06:00 02/15/17 11:49 Nystatin Oral Suspension - PO 500,000 units Q6HPO [place] Administration Vital Signs Period Temp Pulse Resp BP Sys/Sawyer Pulse Ox Last 24 Hr 97.4 F-98.9 F 73-108 18-20 129-143/63-84 97-98 PHYSICAL EXAM GENERAL: Alert, oriented to time and place, in no apparent respiratory distress EYES: PERRLA, EOMI, conjunctiva clear ENT: Ears normal, nares patent NECK: No JVD, trachea midline HEART: Regular rate, rhythm. 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 No change of an adverse nature since 02/07/17 CXR (02/14/17): Normal chest film ASSESSMENT/PLAN 81 y/o F with PMHx of COPD, discharged 02/11/17 for COPD exacerbation, presents to ED with shortness of breath, admitted for acute COPD exacerbation 1. Shortness of breath secondary to acute COPD exacerbation -Improving -Currently 95% on 3L nasal cannula (home oxygen), maintain > 90% -Solu-medrol 40 mg IVPB Q12Hr -Albuterol TID -Tudorza 1 puff IH BID [place] -Albuterol PRN Q4H -Continue Robitussin for cough -Continue peak flow measurements -Dr. Phan consult appreciated -Continue to monitor vitals, labs 2. Oral Thrush -Continue Nystatin Q6H 3. Hypokalemia -Improved (3.2 to 3.9) -Repleted in ED 4. Hypomag -Stable at 1.5 -Continue Magnesium supplementation 400 mg PO 5. CAD -EKG unremarkable -Continue Atorvastatin 6. Cervical radiculopathy -Continue Gabapentin, Flexaril 7. Leukocytosis -Increased from 17.8 to 21.8 -Likely secondary to steroid use 8. HTN -Stable -Continue home meds 9. Hypothyroidism -Stable -Continue home meds 10. Urinary frequency -Stable -Continue home meds 11. DVT PPx -Continue lovenox Dispo: Med/surg
--- NOTE | 2017-02-15 16:58 | PN ---
Physical Exam: SUBJECTIVE: Patient seen and examined on 3 L O2, on and off. Comfortable, IV steroids decreased today. Denies chest pain, still with sob with exertion. OBJECTIVE: Vital Signs Period Temp Pulse Resp BP Sys/Sawyer Pulse Ox Last 24 Hr 97.4 F-98.9 F 73-108 18-20 129-143/55-84 97-98 GENERAL: The patient is awake, alert, and fully oriented, in no acute distress. HEAD: Normal with no signs of trauma. EYES: PERRL, extraocular movements intact, sclera anicteric, conjunctiva clear. No ptosis. ENT: Ears normal, nares patent, oropharynx clear without exudates, moist mucous membranes. NECK: Trachea midline, full range of motion, supple. LUNGS: Breath sounds decreased, clear to auscultation bilaterally, no wheezes, no crackles, no accessory muscle use. HEART: Regular rate and rhythm, S1, S2 without murmur, rub or gallop. ABDOMEN: Soft, nontender, nondistended, normoactive bowel sounds, no guarding, no rebound, no hepatosplenomegaly, no masses. EXTREMITIES: 2+ pulses, warm, well-perfused, no edema. NEUROLOGICAL: Cranial nerves II through XII grossly intact. Normal speech, gait not observed. PSYCH: Normal mood, normal affect. SKIN: Warm, dry, normal turgor, no rashes or lesions noted Active Medications Generic Name Dose Route Start Last Admin Trade Name Freq PRN Reason Stop Dose Admin Aclidinium [place] 1 puff 02/14/17 22:00 02/15/17 09:45 Tudorza - IH Not Given BID [place] Albuterol Sulfate 1 amp 02/14/17 14:00 02/15/17 06:31 Ventolin 0.083% Nebulizer Soln - NEB 1 amp TID [place] Administration Albuterol Sulfate 1 amp 02/15/17 11:54 Ventolin 0.083% Nebulizer Soln - NEB Q4H PRN SHORT OF BREATH/WHEEZING Aspirin 81 mg 02/14/17 10:00 02/15/17 09:30 Asa - PO 81 mg DAILY [place] Administration Atorvastatin Calcium 20 mg 02/14/17 22:00 02/14/17 21:23 Lipitor - PO 20 mg HS [place] Administration Chlorthalidone 25 mg 02/14/17 10:00 02/15/17 09:30 [place]gro[place] - PO 25 mg DAILY [place] Administration Cyclobenzaprine HCl 5 mg 02/14/17 04:49 02/15/17 02:28 Flexeril - PO 5 mg Q24H PRN Administration MODERATE PAIN Enoxaparin Sodium 40 mg 02/14/17 10:00 02/15/17 09:30 Lovenox - SQ 40 mg DAILY [place] Administration Estrogens Conjugated 1.25 mg 02/14/17 10:00 02/15/17 09:31 Premarin - PO 1.25 mg DAILY [place] Administration Gabapentin 100 mg 02/14/17 09:00 02/15/17 10:50 Neurontin Oral Liquid - PO 100 mg Q8H [place] Administration Guaifenesin/Codeine Phosphate 5 ml 02/14/17 04:36 02/15/17 02:28 Robitussin Ac - PO 5 ml Q8H PRN Administration COUGH Levothyroxine Sodium 25 mcg 02/15/17 07:00 02/15/17 06:05 Synthroid - PO 25 mcg AM [place] Administration Methylprednisolone Sodium Succinate 40 mg 02/15/17 09:30 02/15/17 09:30 Solu-Medrol - IVPB 40 mg Q12H [place] Administration Metoprolol Succinate 12.5 mg 02/14/17 22:00 02/14/17 21:24 Toprol Xl - PO 12.5 mg HS [place] Administration Non-Formulary Medication 25 mg 02/14/17 10:00 Mirabegron [Myrbetriq] PO DAILY [place] Nystatin 500,000 units 02/14/17 06:00 02/15/17 11:49 Nystatin Oral Suspension - PO 500,000 units Q6HPO [place] Administration ASSESSMENT/PLAN: Patient is a 81 year old woman with significant past medical history of COPD on home oxygen with chronic steroid use, HTN recently discharged from [facility] presented to the ED with SOB admitted for COPD exacerbation. # COPD exacerbation -improving -steroids decreased today 40mg IV q12h -albuterol PRN -Nasal oxygen @ 2L Maintain saturation between 88-90 % -Guaifenesin/Codeine 5ml q8hr prn for cough -Tudorza BID -pulm followin # Oral thrush likely due to nebulizer -Nystatin swish and spit -Patient mentions she doesn't want to use the steroid nebulizer because she developed oral thrush # Increased Creatinine Kinase- unknown etiology which resolved -CK-200---->125; Repeat CK-MB normal. -Troponin x 2 negative # Electrolyte abnormalities- Hypokalemia and Hypomagnesemia -Potassium repleted in ED -Mg ox 400mg po stat given # Diastolic CHF - Not in exacerbation # Hypertension- stable - Continue Chlorthalidone 25mg po qd - Toprol XL 12.5mg po HS #CAD - Continue Atorvastatin 20mg po # Hypothyroidism - Continue Levothyroxine 25mcg qd po # Urinary frequency - continue home medication myrbetriq. Patient said she will get it from home since we don't carry the medication. #Cervical radiculopathy - Gabapentin solution 100ml q8hr - Flexaril 5mg po prn Once a day # FEN Not on IV fluids Electrolytes repleted Low sodium soft diet # Prophylaxis For DVT: lovenox sq For GI: Not indicated Disposition: taper steroids Visit type - Emergency Visit Emergency Visit: Yes ED Registration Date: 02/14/17 Care time: The patient presented to the Emergency Department on the above date and was hospitalized for further evaluation of their emergent condition. - New Patient This patient is new to me today: Yes Date on this admission: 02/15/17 - Critical Care Critical Care patient: No
[2017-02-15] MEDS ORDERED: MAGNESIUM OXIDE 400 MG TABLET (FP) PO ONE (17:13)
--- NOTE | 2017-02-15 17:16 | PN ---
Teaching Attending Note Name of Resident: Kandice Subramanian ATTENDING PHYSICIAN STATEMENT I saw and evaluated the patient. I reviewed the resident's note and discussed the case with the resident. I agree with the resident's findings and plan as documented. SUBJECTIVE:states she feels better however has not walked further than the bathroom. states she was complaint with medications at home. denies CP, SOB, fever, chills, OBJECTIVE: Last Vital Signs Temp Pulse Resp BP Pulse Ox 97.6 F 83 20 139/55 97 02/15/17 14:56 02/15/17 14:56 02/15/17 14:56 02/15/17 14:56 02/15/17 14:20 General NAD HEENT +oral white plaques, no ulcers CV S1 S2 RRR no murmur/rub/gallop Lungs decreased breath sounds diffusely. no wheezing or rhales extremities multiple ecchymosis on extremities at various stages of healing ASSESSMENT AND PLAN: 81yo F with PMH COPD on home O2, CAD, HTN, hypothyroid and Diastolic CHF presented to the ER and was admitted for further evaluation of their emergent condition 1. Acute COPD exacerbation- currently saturating 96% on 3L NC. solumedrol titrated down to BID dosing. cont taper. on tudorza which was started here. will d/c toprol and switch to cardizem as likely not tolerating. start low dose and monitor. cont nebs. pulmonary on board 2. oral candidasis- likely due to improper use of inhalers. states odynophagia improved. cont nystatin swish and swallow 3. Hypokalemia- resolved 4. hypomagnesemia- resolved 5. Diastolic CHF- no signs of volume overload. betablocker switched to calcium channel suyapa 6. DVT ppx- lovenox
[2017-02-15] MEDS: ATORVASTATIN CA 20 MG TABLET (FP) PO SCH (21:54)
[2017-02-16] MEDS: NYSTATIN 500,000 UNITS/5 ML SUSPENSION PO SCH ×4 (00:46→17:14)
[2017-02-16] MEDS ORDERED: PT OWN MED DRAWER 7, Y5N ONE ×3 (01:24→21:11)
[2017-02-16] MEDS: GABAPENTIN 250 MG/5 ML ORAL SOLUTION, 470 ML BOTTLE PO SCH ×4 (01:47→21:36)
[2017-02-16] MEDS: ALBUTEROL SO4 0.083% IH SOL 2.5 MG/3 ML VIAL.NEB. NEB SCH ×3 (06:34→22:45)
[2017-02-16] MEDS: LEVOTHYROXINE NA 25 MCG TABLET (FP) PO SCH (06:39)
[2017-02-16 08:14] LABS: MCH 29.2 pg (25.7-33.7); MCHC 33.5 g/dl (32.0-36.0); PLATELET COUNT 364 K/MM3 (134-434); RDW 13.9 % (11.6-15.6); WHITE BLOOD COUNT 18.2 K/mm3 (4.0-10.0)
[2017-02-16 08:54] LABS: CALCIUM 9.8 mg/dL (8.5-10.1); COCKROFT - GAULT 35.7085; CREATININE 0.9 mg/dL (0.55-1.02); MAGNESIUM 1.8 mg/dL (1.8-2.4)
[2017-02-16] MEDS: ESTROGENS,CONJUGATED 1.25 MG TABLET PO SCH (09:02)
[2017-02-16] MEDS: CHLORTHALIDONE 25 MG TABLET PO SCH (09:02)
[2017-02-16] MEDS: ASPIRIN 81 MG CHEWABLE TABLETS PO SCH (09:03)
[2017-02-16] MEDS: methylPREDNISolone NA SUCC 40 MG/1 ML VIAL IVPB SCH (09:03)
[2017-02-16] MEDS: ENOXAPARIN NA (PORCINE) 40 MG/0.4 ML DISP.SYRIN SQ SCH (09:03)
[2017-02-16] MEDS: ACLIDINIUM BROMIDE 400 MCG/INH AERO.POWD IH SCH ×2 (09:04→21:33)
[2017-02-16 09:51] LABS: PLATELET ESTIMATE ADEQUATE (NORMAL)
--- NOTE | 2017-02-16 11:06 | PN ---
Teaching Attending Note Name of Resident: Kandice Subramanian ATTENDING PHYSICIAN STATEMENT I saw and evaluated the patient. I reviewed the resident's note and discussed the case with the resident. I agree with the resident's findings and plan as documented. SUBJECTIVE:states her breathing has improved. able to ambulate to nursing station without difficulty but had to rest prior to returning to room. cont to have cough but improved. denies Cp, Fever, chills, N/V/C/D OBJECTIVE: Last Vital Signs Temp Pulse Resp BP Pulse Ox 98.2 F 76 22 133/62 98 02/16/17 08:07 02/16/17 08:07 02/16/17 08:07 02/16/17 08:07 02/15/17 21:00 General NAD Lungs improved airation in the apices. no wheezing or rhales ASSESSMENT AND PLAN: 81yo F with PMH COPD on home O2, CAD, HTN, hypothyroid and Diastolic CHF presented to the ER and was admitted for further evaluation of their emergent condition 1. Acute COPD exacerbation-clinically improved. received solumedrol 40mg x3 doses yesterday, due to re-admission on decreasing steroids too quickly will give another dose solumedrol 40mg once today and monitor tomorrow,and assess if can convert to po tomorrow. will check pre-post o2 to evaluate if need home o2. currently 92% on RA.. cont nebs. pulmonary on board 2. oral candidasis- likely due to improper use of inhalers. states odynophagia improved. cont nystatin swish and swallow 3. Hypokalemia- resolved 4. hypomagnesemia- resolved 5. Diastolic CHF- no signs of volume overload. betablocker switched to calcium channel suyapa, will monitor 6. DVT ppx- lovenox
--- NOTE | 2017-02-16 11:23 | PN ---
Physical Exam: PULMONARY PROGRESS NOTE SUBJECTIVE: Patient seen and examined at bedside. Pt feels much improved today. She states she feels she gets these episodes of SOB usually when she is stressed. She has also noted a cough over the last month without being able to produce sputum despite feeling like she has some when she coughs. No acute events overnight. Pt still feels like she has some SOB after conversation. OBJECTIVE: Vital Signs Temperature 98.2 F 02/16/17 08:07 Pulse Rate 76 02/16/17 08:07 Respiratory Rate 22 02/16/17 08:07 Blood Pressure 133/62 02/16/17 08:07 O2 Sat by Pulse Oximetry (%) 98 02/15/17 21:00 GENERAL: The patient is awake, alert, and fully oriented, in no acute distress. mild sob after speaking a few sentences. HEAD: Normal with no signs of trauma. EYES: extraocular movements intact, sclera anicteric, conjunctiva clear. No ptosis. ENT: Ears normal, nares patent, moist mucous membranes. NECK: Trachea midline, full range of motion, supple. LUNGS: diminished breath sounds b/l. no wheezes, no crackles. HEART: Regular rate and rhythm, S1, S2 without murmur, rub or gallop. ABDOMEN: Soft, nontender, nondistended, normoactive bowel sounds, no guarding, no rebound, no hepatosplenomegaly, no masses. EXTREMITIES: 2+ pulses, warm, well-perfused, no edema. NEUROLOGICAL: Cranial nerves II through XII grossly intact. Normal speech, gait not observed. PSYCH: Normal mood, normal affect. SKIN: Warm, dry, normal turgor, no rashes or lesions noted Laboratory Results - last 24 hr 02/16/17 02/16/17 06:20 06:30 WBC 18.2 H RBC 4.27 Hgb 12.5 Hct 37.2 MCV 87.0 MCHC 33.5 RDW 13.9 Plt Count 364 MPV 9.0 D Neutrophils % 92.0 H Lymphocytes % 6.0 L D Monocytes % 1.0 L D Differential Comment Manual diff done Platelet Estimate Adequate Sodium 140 Potassium 4.2 Chloride 96 L Carbon Dioxide 36 H Anion Gap 8 BUN 25 H Creatinine 0.9 Random Glucose 124 H D Calcium 9.8 Magnesium 1.8 Active Medications Generic Name Dose Route Start Last Admin Trade Name Freq PRN Reason Stop Dose Admin Aclidinium [place] 1 puff 02/14/17 22:00 02/16/17 09:04 Tudorza - IH Not Given BID BREANNA Albuterol Sulfate 1 amp 02/14/17 14:00 02/16/17 06:34 Ventolin 0.083% Nebulizer Soln - NEB 1 amp TID BREANNA Administration Albuterol Sulfate 1 amp 02/15/17 11:54 Ventolin 0.083% Nebulizer Soln - NEB Q4H PRN SHORT OF BREATH/WHEEZING Aspirin 81 mg 02/14/17 10:00 02/16/17 09:03 Asa - PO 81 mg DAILY [place] Administration Atorvastatin Calcium 20 mg 02/14/17 22:00 02/15/17 21:54 Lipitor - PO 20 mg HS BREANNA Administration Chlorthalidone 25 mg 02/14/17 10:00 02/16/17 09:02 Hygroton - PO 25 mg DAILY [place] Administration Cyclobenzaprine HCl 5 mg 02/14/17 04:49 02/15/17 02:28 Flexeril - PO 5 mg Q24H PRN Administration MODERATE PAIN Diltiazem HCl 120 mg 02/15/17 22:00 02/15/17 21:54 Cardizem Cd - PO 120 mg HS BREANNA Administration Enoxaparin Sodium 40 mg 02/14/17 10:00 02/16/17 09:03 Lovenox - SQ 40 mg DAILY BREANNA Administration Estrogens Conjugated 1.25 mg 02/14/17 10:00 02/16/17 09:02 Premarin - PO 1.25 mg DAILY BRE[place]NA Administration Gabapentin 100 mg 02/16/17 06:00 02/16/17 06:38 Neurontin Oral Liquid - PO 100 mg TID BREANNA Administration Guaifenesin/Codeine Phosphate 5 ml 02/14/17 04:36 02/15/17 21:55 Robitussin Ac - PO 5 ml Q8H PRN Administration COUGH Levothyroxine Sodium 25 mcg 02/15/17 07:00 02/16/17 06:39 Synthroid - PO 25 mcg AM BREANNA Administration Methylprednisolone Sodium Succinate 40 mg 02/15/17 09:30 02/16/17 09:03 Solu-Medrol - IVPB 40 mg Q12H BREANNA Administration Non-Formulary Medication 25 mg 02/14/17 10:00 Mirabegron [Myrbetriq] PO DAILY [facility] Nystatin 500,000 units 02/14/17 06:00 02/16/17 06:39 Nystatin Oral Suspension - PO 500,000 units Q6HPO BREANNA Administration ASSESSMENT/PLAN: 81 y/o F with sig PMH of COPD, hypothyroidism, dCHF presented to ER with SOB. Admitted for COPD exacerbation. -SOB secondary to COPD exacerbation vs cardiac etiology -can change solumedrol to prednisone -c/w tudorza, alb nebs breanna tid and alb nebs prn -O2 supplementation to keep oxygen sat >90% -PFTs as outpatient -consider mild anxiolytic as SOB seems worsen with anxiety -cough may be due to allergies, pt has had cough for the last month -consider cardiac etiology for SOB as well -Lung nodule -has been followed as outpatient over last 2 years -continue to monitor -dCHF -no signs of fluid overload at thsi time -CAD -ASA 81 -lipitor 20 mg po qhs -hypothyroidism -c/w synthroid 25 mcg po qd Problem List - Problems (1) COPD exacerbation Code(s): J44.1 - CHRONIC OBSTRUCTIVE PULMONARY DISEASE W (ACUTE) EXACERBATION (2) Cough Code(s): R05 - COUGH (3) Diastolic CHF Code(s): I50.30 - UNSPECIFIED DIASTOLIC (CONGESTIVE) HEART FAILURE (4) HTN (hypertension) Code(s): I10 - ESSENTIAL (PRIMARY) HYPERTENSION (5) Hyperlipidemia Code(s): E78.5 - HYPERLIPIDEMIA, UNSPECIFIED (6) Shortness of breath Code(s): R06.02 - SHORTNESS OF BREATH Visit type - Emergency Visit Emergency Visit: Yes ED Registration Date: 02/14/17 Care time: The patient presented to the Emergency Department on the above date and was hospitalized for further evaluation of their emergent condition. - New Patient This patient is new to me today: Yes Date on this admission: 02/16/17 - Critical Care Critical Care patient: No
--- NOTE | 2017-02-16 15:39 | PN ---
Progress Note (short form) - Note Progress Note: PULMONARY WELL KNOWN BY OUR SERVICE VSS/AFEBRILE CONGESTED COUGH ANICTERIC DISTANT BREATH SOUNDS W SCATTERED RHONCHI S1S2 BS+ SOFT NO EDEMA LABS/MEDS/IMAGES/MICRO/NOTES REVIEWED - Problems (1) COPD exacerbation Code(s): J44.1 - CHRONIC OBSTRUCTIVE PULMONARY DISEASE W (ACUTE) EXACERBATION (2) Aortic regurgitation Code(s): I35.1 - NONRHEUMATIC AORTIC (VALVE) INSUFFICIENCY (3) Cervical radiculopathy Code(s): M54.12 - RADICULOPATHY, CERVICAL REGION (4) Coronary artery disease Code(s): I25.10 - ATHSCL HEART DISEASE OF [place] CORONARY ARTERY W/O ANG PCTRS (5) Cough Code(s): R05 - COUGH (6) Diastolic CHF Code(s): I50.30 - UNSPECIFIED DIASTOLIC (CONGESTIVE) HEART FAILURE (7) HTN (hypertension) Code(s): I10 - ESSENTIAL (PRIMARY) HYPERTENSION (8) Hyperlipidemia Code(s): E78.5 - HYPERLIPIDEMIA, UNSPECIFIED (9) Nasal congestion Code(s): R09.81 - NASAL CONGESTION (10) Shortness of breath Code(s): R06.02 - SHORTNESS OF BREATH (11) Lung nodule Code(s): R91.1 - SOLITARY PULMONARY NODULE Continue prednisone O2 as needed BD TX Tudroza Monitoring off ABX Will need to follow on PFTs as an outpatient Needs cardiac eval to r/o cad as a cause of these episodes I have called her information systems director for a consult R SANYA MAHAJAN
--- NOTE | 2017-02-16 15:55 | CON.CARD ---
Consult - History of Present Illness History of Present Illness: The patient is a 81 year old white female with a significant past medical history of s/p [place], CAD (hx coronary angiogram at [facility]), COPD, HTN, anxiety, who presents to the emergency department with difficulty breathing at home. She is oxygen dependent at home. She bumped up her oxygen at home, but is still hypoxic and still has difficulty breathing. The patient denies chest pain, and dizziness. Denies fever, chills, nausea, vomit, diarrhea and constipation. Denies dysuria, frequency, urgency and hematuria. - History Source History Provided By: Patient, Medical Record - Past Medical History Cardio/Vascular: Yes: CAD, HTN, [place] Pulmonary: Yes: Bronchitis, COPD ...: No - Alcohol/Substance Use Hx Alcohol Use: No - Smoking History Smoking history: Never smoked Have you smoked in the past 12 months: No Aproximately how many cigarettes per day: 10 If you are a former smoker, when did you quit?: 5 years ago Home Medications - Allergies Allergies/Adverse Reactions: Allergies Allergy/AdvReac Type Severity Reaction Status Date / Time No Known Allergies Allergy Verified 02/13/17 22:16 - Home Medications Home Medications: Ambulatory Orders Albuterol Sulfate Inhaler - [Ventolin HFA Inhaler -] 1 - 2 inh IH TID PRN Estrogens,Conjugated [Premarin] 1.25 mg PO DAILY 11/16/12 Levothyroxine [Synthroid -] 25 mcg PO DAILY 11/16/12 Metoprolol Succinate [Toprol XL -] 12.5 mg PO HS 11/16/12 Albuterol 2.5/Ipratropium 0.5 [Duoneb -] 1 neb NEB TID PRN 02/19/15 Aspirin [ASA -] 81 mg PO DAILY 02/19/15 Mirabegron [Myrbetriq] 25 mg PO DAILY 02/19/15 Cyclobenzaprine HCl [Flexeril -] 5 mg PO PRN 10/02/16 Oxycodone HCl/Acetaminophen [Percocet 5-325 mg Tablet] 1 tab PO PRN 10/02/16 Chlorthalidone [Hygroton -] 25 mg PO DAILY 02/06/17 Gabapentin [Neurontin -] 100 mg PO Q8H 02/06/17 Acetaminophen [Tylenol .Regular Strength -] 325 mg PO ONCE PRN #0 tablet Review of Systems - Review of Systems Constitutional: reports: No Symptoms Eyes: reports: No Symptoms HENT: reports: No Symptoms Neck: reports: No Symptoms Cardiovascular: reports: No Symptoms Respiratory: reports: SOB, SOB on Exertion Gastrointestinal: reports: No Symptoms Genitourinary: reports: No Symptoms Breasts: reports: No Symptoms Reported Musculoskeletal: reports: No Symptoms Integumentary: reports: No Symptoms Neurological: reports: No Symptoms Endocrine: reports: No Symptoms Hematology/Lymphatic: reports: No Symptoms Psychiatric: reports: No Symptoms Vital Signs: Vital Signs Temperature 98.3 F 02/16/17 15:39 Pulse Rate 93 H 02/16/17 15:39 Respiratory Rate 18 02/16/17 15:39 Blood Pressure 150/63 02/16/17 15:39 O2 Sat by Pulse Oximetry (%) 92 L 02/16/17 14:05 Constitutional: Yes: Well Nourished, No Distress, Calm Eyes: Yes: WNL, Conjunctiva Clear, EOM Intact HENT: Yes: WNL, Atraumatic, Normocephalic Neck: Yes: WNL, Supple, Trachea Midline Respiratory: Yes: WNL, Regular, CTA Bilaterally Gastrointestinal: Yes: WNL, Normal Bowel Sounds Renal/: Yes: WNL Cardiovascular: Yes: WNL, Regular Rate and Rhythm Musculoskeletal: Yes: WNL Extremities: Yes: WNL Integumentary: Yes: WNL Neurological: Yes: WNL, Alert, Oriented ...Motor Strength: WNL Psychiatric: Yes: WNL, Alert, Oriented - Other Data Labs, Other Data: CBC, BMP 02/16/17 06:30 02/16/17 06:20 INR, PTT INR 1.02 (0.82-1.09) 02/13/17 23:35 Imaging - Results Chest X-ray: Image Reviewed (no i/e) EKG: Image Reviewed (sr lae) Problem List - Problems (1) COPD exacerbation Code(s): J44.1 - CHRONIC OBSTRUCTIVE PULMONARY DISEASE W (ACUTE) EXACERBATION (2) Aortic regurgitation Code(s): I35.1 - NONRHEUMATIC AORTIC (VALVE) INSUFFICIENCY (3) Cervical radiculopathy Code(s): M54.12 - RADICULOPATHY, CERVICAL REGION (4) Coronary artery disease Code(s): I25.10 - ATHSCL HEART DISEASE OF [place] CORONARY ARTERY W/O ANG PCTRS (5) Cough Code(s): R05 - COUGH (6) Diastolic CHF Code(s): I50.30 - UNSPECIFIED DIASTOLIC (CONGESTIVE) HEART FAILURE (7) HTN (hypertension) Code(s): I10 - ESSENTIAL (PRIMARY) HYPERTENSION (8) Hyperlipidemia Code(s): E78.5 - HYPERLIPIDEMIA, UNSPECIFIED (9) Hypothyroidism Code(s): E03.9 - HYPOTHYROIDISM, UNSPECIFIED (10) Leukocytosis Code(s): D72.829 - ELEVATED WHITE BLOOD CELL COUNT, UNSPECIFIED (11) Lung nodule Code(s): R91.1 - SOLITARY PULMONARY NODULE (12) Nasal congestion Code(s): R09.81 - NASAL CONGESTION (13) Overactive bladder Code(s): N32.81 - OVERACTIVE BLADDER (14) Shortness of breath Code(s): R06.02 - SHORTNESS OF BREATH (15) Shoulder pain, right Code(s): M25.511 - PAIN IN RIGHT SHOULDER Qualifiers: Chronicity: acute Qualified Code(s): M25.511 - Pain in right shoulder Assessment/Plan - Problems (1) COPD exacerbation Assessment/Plan: bronchodilators, steroids, antibiotics per pollution control engineer. Code(s): J44.1 - CHRONIC OBSTRUCTIVE PULMONARY DISEASE W (ACUTE) EXACERBATION (2) Cervical radiculopathy Code(s): M54.12 - RADICULOPATHY, CERVICAL REGION (3) Nasal congestion Code(s): R09.81 - NASAL CONGESTION (4) Diastolic CHF Code(s): I50.30 - UNSPECIFIED DIASTOLIC (CONGESTIVE) HEART FAILURE (5) Aortic regurgitation Assessment/Plan: f/u ECHO for LVEF, valve status (hx significant AR). Code(s): I35.1 - NONRHEUMATIC AORTIC (VALVE) INSUFFICIENCY (6) Coronary artery disease Assessment/Plan: no chest pain. TNI < 0.02. Normal LVEF on 05/2016 ECHO> Hx ?[place]-->coronary angiogram at [facility]: f/u records. Code(s): I25.10 - ATHSCL HEART DISEASE OF [place] CORONARY ARTERY W/O ANG PCTRS (7) Hyperlipidemia Assessment/Plan: start statin; keep LDL cholesterol < 70 mg/dL (presently >130). Code(s): E78.5 - HYPERLIPIDEMIA, UNSPECIFIED
--- NOTE | 2017-02-16 17:13 | PN ---
Physical Exam: SUBJECTIVE: Patient seen and examined OBJECTIVE: Vital Signs Period Temp Pulse Resp BP Sys/Sawyer Pulse Ox Last 24 Hr 97.4 F-98.3 F 52-112 18-22 113-154/57-69 92-98 GENERAL: The patient is awake, alert, and fully oriented, in no acute distress. HEAD: Normal with no signs of trauma. EYES: PERRL, extraocular movements intact, sclera anicteric, conjunctiva clear. No ptosis. ENT: Ears normal, nares patent, oropharynx clear without exudates, moist mucous membranes. NECK: Trachea midline, full range of motion, supple. LUNGS: decreased breath sound; some inspiratory crackles mild wheezed ; HEART: Regular rate and rhythm, S1, S2 without murmur, rub or gallop. ABDOMEN: Soft, nontender, nondistended, normoactive bowel sounds, no guarding, no rebound, no hepatosplenomegaly, no masses. EXTREMITIES: 2+ pulses, warm, well-perfused, no edema. NEUROLOGICAL: Cranial nerves II through XII grossly intact. Normal speech, gait not observed. PSYCH: Normal mood, normal affect. SKIN: Warm, dry, normal turgor, no rashes or lesions noted Laboratory Results - last 24 hr 02/16/17 02/16/17 06:20 06:30 WBC 18.2 H RBC 4.27 Hgb 12.5 Hct 37.2 MCV 87.0 MCHC 33.5 RDW 13.9 Plt Count 364 MPV 9.0 D Neutrophils % 92.0 H Lymphocytes % 6.0 L D Monocytes % 1.0 L D Differential Comment Manual diff done Platelet Estimate Adequate Sodium 140 Potassium 4.2 Chloride 96 L Carbon Dioxide 36 H Anion Gap 8 BUN 25 H Creatinine 0.9 Random Glucose 124 H D Calcium 9.8 Magnesium 1.8 Active Medications Generic Name Dose Route Start Last Admin Trade Name Freq PRN Reason Stop Dose Admin Aclidinium [place] 1 puff 02/14/17 22:00 02/16/17 09:04 Tudorza - IH Not Given BID [place] Albuterol Sulfate 1 amp 02/14/17 14:00 02/16/17 14:16 Ventolin 0.083% Nebulizer Soln - NEB 1 amp TID [place] Administration Albuterol Sulfate 1 amp 02/15/17 11:54 02/16/17 11:15 Ventolin 0.083% Nebulizer Soln - NEB 1 amp Q4H PRN Administration SHORT OF BREATH/WHEEZING Aspirin 81 mg 02/14/17 10:00 02/16/17 09:03 Asa - PO 81 mg DAILY [place] Administration Chlorthalidone 25 mg 02/14/17 10:00 02/16/17 09:02 Hygroton - PO 25 mg DAILY [place] Administration Cyclobenzaprine HCl 5 mg 02/14/17 04:49 02/15/17 02:28 Flexeril - PO 5 mg Q24H PRN Administration MODERATE PAIN Diltiazem HCl 120 mg 02/15/17 22:00 02/15/17 21:54 Cardizem Cd - PO 120 mg HS [place] Administration Enoxaparin Sodium 40 mg 02/14/17 10:00 02/16/17 09:03 Lovenox - SQ 40 mg DAILY [place] Administration Estrogens Conjugated 1.25 mg 02/14/17 10:00 02/16/17 09:02 Premarin - PO 1.25 mg DAILY [place] Administration Gabapentin 100 mg 02/16/17 06:00 02/16/17 15:08 Neurontin Oral Liquid - PO 100 mg TID [place] Administration Guaifenesin/Codeine Phosphate 5 ml 02/14/17 04:36 02/15/17 21:55 Robitussin Ac - PO 5 ml Q8H PRN Administration COUGH Levothyroxine Sodium 25 mcg 02/15/17 07:00 02/16/17 06:39 Synthroid - PO 25 mcg AM [place] Administration Non-Formulary Medication 25 mg 02/14/17 10:00 Mirabegron [Myrbetriq] PO DAILY [place] Nystatin 500,000 units 02/14/17 06:00 02/16/17 12:52 Nystatin Oral Suspension - PO 500,000 units Q6HPO [place] Administration Prednisone 40 mg 02/17/17 10:00 Deltasone - PO DAILY [facility] ASSESSMENT/PLAN: Patient is a 81 year old woman with significant past medical history of COPD on home oxygen with chronic steroid use, HTN recently discharged from [facility] presented to the ED with SOB admitted for COPD exacerbation. # COPD exacerbation -improving -steroids decreased to prednisone 40mg daily -albuterol scheduled TID and prn -Nasal oxygen @ 2L Maintain saturation between 88-90 % -Guaifenesin/Codeine 5ml q8hr prn for cough -Tudorza BID -pulmonary following # Oral thrush likely due to nebulizer: improving -Nystatin swish and spit -Patient mentions she doesn't want to use the steroid nebulizer because she developed oral thrush # Increased Creatinine Kinase- unknown etiology which resolved -CK-200---->125; Repeat CK-MB normal. -Troponin x 2 negative # Electrolyte abnormalities- Hypokalemia and Hypomagnesemia: resolved # Diastolic CHF - Not in exacerbation # Hypertension- stable - Continue Chlorthalidone 25mg po qd - Toprol XL 12.5mg po HS #CAD - Continue Atorvastatin 20mg po # Hypothyroidism - Continue Levothyroxine 25mcg qd po # Urinary frequency - continue home medication myrbetriq. Patient said she will get it from home since we don't carry the medication. #Cervical radiculopathy - Gabapentin solution 100ml q8hr - Flexaril 5mg po prn Once a day #HLD: -increased statin to 40mg HS due to LDL >130 # FEN Not on IV fluids Electrolytes repleted Low sodium soft diet # Prophylaxis For DVT: lovenox sq For GI: Not indicated Disposition: taper steroids Visit type - Emergency Visit Emergency Visit: Yes ED Registration Date: 02/14/17 Care time: The patient presented to the Emergency Department on the above date and was hospitalized for further evaluation of their emergent condition. - New Patient This patient is new to me today: No - Critical Care Critical Care patient: No
[2017-02-16] MEDS: guaiFENesin/CODEINE 5 ML UNIT-DOSE CUPS PO PRN (21:33)
[2017-02-16] MEDS: CYCLOBENZAPRINE HCL 10 MG TABLET (FP) PO PRN (21:34)
[2017-02-16] MEDS ORDERED: ATORVASTATIN CA 40 MG TABLET (FP) PO SCH (22:00)
[2017-02-17] MEDS: NYSTATIN 500,000 UNITS/5 ML SUSPENSION PO SCH ×4 (02:55→17:51)
[2017-02-17] MEDS: LEVOTHYROXINE NA 25 MCG TABLET (FP) PO SCH (05:59)
[2017-02-17] MEDS: GABAPENTIN 250 MG/5 ML ORAL SOLUTION, 470 ML BOTTLE PO SCH ×2 (06:00→13:08)
[2017-02-17] MEDS: ALBUTEROL SO4 0.083% IH SOL 2.5 MG/3 ML VIAL.NEB. NEB SCH ×2 (06:40→14:15)
[2017-02-17 08:31] LABS: CALCIUM 9.6 mg/dL (8.5-10.1)
[2017-02-17 08:33] LABS: MCHC 33.8 g/dl (32.0-36.0); MEAN CELL VOLUME 85.8 fl (80-96); MEAN PLT VOLUME 8.9 fl (7.5-11.1); PLATELET COUNT 361 K/MM3 (134-434); RDW 13.8 % (11.6-15.6); WHITE BLOOD COUNT 18.2 K/mm3 (4.0-10.0)
[2017-02-17 08:34] LABS: COCKROFT - GAULT 35.8105; CREATININE 0.9 mg/dL (0.55-1.02); MAGNESIUM 1.5 mg/dL (1.8-2.4)
--- NOTE | 2017-02-17 09:15 | PN ---
Progress Note (short form) - Note Progress Note: Feels better today. Nervous since her is having surgery today (port removal). Sat RA at rest 96%. Intake & Output 02/14/17 02/15/17 02/16/17 02/17/17 23:59 23:59 23:59 23:59 Intake Total 470 1010 1380 Output Total 2 1 Balance 468 1009 1380 Weight 102 lb 8 oz 105 lb 4.8 oz 105 lb 9.6 oz Last Vital Signs Temp Pulse Resp BP Pulse Ox 97.2 F L 68 18 130/59 94 L 02/17/17 06:00 02/17/17 06:00 02/17/17 06:00 02/17/17 06:00 02/16/17 21:00 Active Medications Aclidinium [place] (Tudorza -) 1 puff IH BID [facility] Last Admin: 02/16/17 21:33 Dose: 1 puff Albuterol Sulfate (Ventolin 0.083% Nebulizer Soln -) 1 amp NEB TID [facility] Last Admin: 02/17/17 06:40 Dose: 1 amp Albuterol Sulfate (Ventolin 0.083% Nebulizer Soln -) 1 amp NEB Q4H PRN PRN Reason: SHORT OF BREATH/WHEEZING Last Admin: 02/16/17 11:15 Dose: 1 amp Aspirin (Asa -) 81 mg PO DAILY [facility] Last Admin: 02/16/17 09:03 Dose: 81 mg Atorvastatin Calcium (Lipitor -) 40 mg PO HS [facility] Last Admin: 02/16/17 21:34 Dose: 40 mg Chlorthalidone (Hygroton -) 25 mg PO DAILY [facility] Last Admin: 02/16/17 09:02 Dose: 25 mg Cyclobenzaprine HCl (Flexeril -) 5 mg PO Q24H PRN PRN Reason: MODERATE PAIN Last Admin: 02/16/17 21:34 Dose: 5 mg Diltiazem HCl (Cardizem Cd -) 120 mg PO HS [facility] Last Admin: 02/16/17 21:33 Dose: 120 mg Enoxaparin Sodium (Lovenox -) 40 mg SQ DAILY [facility] Last Admin: 02/16/17 09:03 Dose: 40 mg Estrogens Conjugated (Premarin -) 1.25 mg PO DAILY [facility] Last Admin: 02/16/17 09:02 Dose: 1.25 mg Gabapentin (Neurontin Oral Liquid -) 100 mg PO TID [facility] Last Admin: 02/17/17 06:00 Dose: 100 mg Levothyroxine Sodium (Synthroid -) 25 mcg PO AM [facility] Last Admin: 02/17/17 05:59 Dose: 25 mcg Non-Formulary Medication (Mirabegron [Myrbetriq]) 25 mg PO DAILY [facility] Nystatin (Nystatin Oral Suspension -) 500,000 units PO Q6HPO [facility] Last Admin: 02/17/17 05:59 Dose: 500,000 units Prednisone (Deltasone -) 40 mg PO DAILY [facility] Constitutional: Yes: No Distress, Anxious, Thin Eyes: Yes: Conjunctiva Clear, EOM Intact, Tearing HENT: Yes: Atraumatic Neck: Yes: Supple, Trachea Midline Cardiovascular: Yes: Regular Rate and Rhythm Respiratory: Yes: Cough, On Nasal O2, Rhonchi, SOB, No Wheezes. No: Accessory Muscle Use, Rales, Stridor, Tachypnea ...Inspection: Yes: WNL ...Clubbing: No Gastrointestinal: Yes: Normal Bowel Sounds, Soft Renal/: Yes: WNL Musculoskeletal: Yes: WNL Extremities: Yes: WNL Edema: No Peripheral Pulses WNL: Yes Integumentary: Yes: WNL Neurological: Yes: WNL, Alert, Oriented ...Motor Strength: WNL Psychiatric: Yes: WNL, Alert, Oriented Labs: Laboratory Results - last 24 hr 02/16/17 02/17/17 02/17/17 06:30 07:00 07:00 WBC 18.2 H RBC 4.31 Hgb 12.5 Hct 37.0 MCV 85.8 MCHC 33.8 RDW 13.8 Plt Count 361 MPV 8.9 Neutrophils % 92.0 H Y Lymphocytes % 6.0 L D Y Monocytes % 1.0 L D Differential Comment Manual diff done Platelet Estimate Adequate Sodium 140 Potassium 3.6 Chloride 97 L Carbon Dioxide 33 H Anion Gap 10 BUN 21 H Creatinine 0.9 Random Glucose 83 D Calcium 9.6 Magnesium 1.5 L Problem List - Problems (1) COPD exacerbation Code(s): J44.1 - CHRONIC OBSTRUCTIVE PULMONARY DISEASE W (ACUTE) EXACERBATION (2) Aortic regurgitation Code(s): I35.1 - NONRHEUMATIC AORTIC (VALVE) INSUFFICIENCY (3) Cervical radiculopathy Code(s): M54.12 - RADICULOPATHY, CERVICAL REGION (4) Coronary artery disease Code(s): I25.10 - ATHSCL HEART DISEASE OF [place] CORONARY ARTERY W/O ANG PCTRS (5) Cough Code(s): R05 - COUGH (6) Diastolic CHF Code(s): I50.30 - UNSPECIFIED DIASTOLIC (CONGESTIVE) HEART FAILURE (7) HTN (hypertension) Code(s): I10 - ESSENTIAL (PRIMARY) HYPERTENSION (8) Hyperlipidemia Code(s): E78.5 - HYPERLIPIDEMIA, UNSPECIFIED (9) Nasal congestion Code(s): R09.81 - NASAL CONGESTION (10) Shortness of breath Code(s): R06.02 - SHORTNESS OF BREATH (11) Lung nodule Code(s): R91.1 - SOLITARY PULMONARY NODULE Assessment/Plan PLAN: Slow Prednisone taper O2 as needed BD TX Tudroza Monitor off ABX Will need to follow on PFTs as an outpatient No Pulmonary contraindication for D/C planning Dr Phan Problem List - Problems (1) COPD exacerbation Code(s): J44.1 - CHRONIC OBSTRUCTIVE PULMONARY DISEASE W (ACUTE) EXACERBATION (2) Aortic regurgitation Code(s): I35.1 - NONRHEUMATIC AORTIC (VALVE) INSUFFICIENCY (3) Cervical radiculopathy Code(s): M54.12 - RADICULOPATHY, CERVICAL REGION (4) Coronary artery disease Code(s): I25.10 - ATHSCL HEART DISEASE OF [place] CORONARY ARTERY W/O ANG PCTRS (5) Cough Code(s): R05 - COUGH (6) Diastolic CHF Code(s): I50.30 - UNSPECIFIED DIASTOLIC (CONGESTIVE) HEART FAILURE (7) HTN (hypertension) Code(s): I10 - ESSENTIAL (PRIMARY) HYPERTENSION (8) Hyperlipidemia Code(s): E78.5 - HYPERLIPIDEMIA, UNSPECIFIED (9) Nasal congestion Code(s): R09.81 - NASAL CONGESTION (10) Shortness of breath Code(s): R06.02 - SHORTNESS OF BREATH (11) Lung nodule Code(s): R91.1 - SOLITARY PULMONARY NODULE
[2017-02-17] MEDS ORDERED: PT OWN MED DRAWER 7, Y5N ONE ×2 (09:52→13:05)
[2017-02-17] MEDS: ENOXAPARIN NA (PORCINE) 40 MG/0.4 ML DISP.SYRIN SQ SCH (09:55)
[2017-02-17] MEDS: ASPIRIN 81 MG CHEWABLE TABLETS PO SCH (09:55)
[2017-02-17] MEDS: CHLORTHALIDONE 25 MG TABLET PO SCH (09:55)
[2017-02-17] MEDS: ACLIDINIUM BROMIDE 400 MCG/INH AERO.POWD IH SCH (09:56)
[2017-02-17] MEDS: ESTROGENS,CONJUGATED 1.25 MG TABLET PO SCH (09:56)
[2017-02-17] MEDS ORDERED: predniSONE 20 MG TABLET (UD) PO SCH (10:00)
--- NOTE | 2017-02-17 10:03 | PN ---
Progress Note, Physician History of Present Illness: The patient is a 81 year old white female with a significant past medical history of s/p MA, CAD (hx coronary angiogram at [facility]), COPD, HTN, anxiety, who presents to the emergency department with difficulty breathing at home. She is oxygen dependent at home. She bumped up her oxygen at home, but is still hypoxic and still has difficulty breathing. The patient denies chest pain, and dizziness. Denies fever, chills, nausea, vomit, diarrhea and constipation. Denies dysuria, frequency, urgency and hematuria. - Current Medication List Current Medications: Active Medications Aclidinium [place] (Tudorza -) 1 puff IH BID [facility] Last Admin: 02/17/17 09:56 Dose: Not Given Albuterol Sulfate (Ventolin 0.083% Nebulizer Soln -) 1 amp NEB TID [facility] Last Admin: 02/17/17 06:40 Dose: 1 amp Albuterol Sulfate (Ventolin 0.083% Nebulizer Soln -) 1 amp NEB Q4H PRN PRN Reason: SHORT OF BREATH/WHEEZING Last Admin: 02/16/17 11:15 Dose: 1 amp Aspirin (Asa -) 81 mg PO DAILY [facility] Last Admin: 02/17/17 09:55 Dose: 81 mg Atorvastatin Calcium (Lipitor -) 40 mg PO HS [facility] Last Admin: 02/16/17 21:34 Dose: 40 mg Chlorthalidone (Hygroton -) 25 mg PO DAILY [facility] Last Admin: 02/17/17 09:55 Dose: 25 mg Cyclobenzaprine HCl (Flexeril -) 5 mg PO Q24H PRN PRN Reason: MODERATE PAIN Last Admin: 02/16/17 21:34 Dose: 5 mg Diltiazem HCl (Cardizem Cd -) 120 mg PO HS [facility] Last Admin: 02/16/17 21:33 Dose: 120 mg Enoxaparin Sodium (Lovenox -) 40 mg SQ DAILY [facility] Last Admin: 02/17/17 09:55 Dose: 40 mg Estrogens Conjugated (Premarin -) 1.25 mg PO DAILY [facility] Last Admin: 02/17/17 09:56 Dose: 1.25 mg Gabapentin (Neurontin Oral Liquid -) 100 mg PO TID [facility] Last Admin: 02/17/17 06:00 Dose: 100 mg Levothyroxine Sodium (Synthroid -) 25 mcg PO AM [facility] Last Admin: 02/17/17 05:59 Dose: 25 mcg Non-Formulary Medication (Mirabegron [Myrbetriq]) 25 mg PO DAILY [facility] Nystatin (Nystatin Oral Suspension -) 500,000 units PO Q6HPO [facility] Last Admin: 02/17/17 05:59 Dose: 500,000 units Prednisone (Deltasone -) 40 mg PO DAILY [facility] Last Admin: 02/17/17 09:55 Dose: 40 mg - Objective Vital Signs: Vital Signs Temperature 97.5 F L 02/17/17 09:28 Pulse Rate 78 02/17/17 09:28 Respiratory Rate 18 02/17/17 09:28 Blood Pressure 124/57 02/17/17 09:28 O2 Sat by Pulse Oximetry (%) 94 L 02/16/17 21:00 Eyes: Yes: WNL, Conjunctiva Clear, EOM Intact HENT: Yes: WNL, Atraumatic, Normocephalic Neck: Yes: WNL, Supple, Trachea Midline Cardiovascular: Yes: WNL, Regular Rate and Rhythm Respiratory: Yes: WNL, Regular, CTA Bilaterally Gastrointestinal: Yes: WNL, Normal Bowel Sounds Genitourinary: Yes: WNL Musculoskeletal: Yes: WNL Extremities: Yes: WNL Edema: No Integumentary: Yes: WNL Neurological: Yes: WNL, Alert, Oriented ...Motor Strength: WNL Psychiatric: Yes: WNL Labs: CBC, BMP 02/17/17 07:00 02/17/17 07:00 INR, PTT INR 1.02 (0.82-1.09) 02/13/17 23:35 Problem List - Problems (1) COPD exacerbation Code(s): J44.1 - CHRONIC OBSTRUCTIVE PULMONARY DISEASE W (ACUTE) EXACERBATION (2) Aortic regurgitation Code(s): I35.1 - NONRHEUMATIC AORTIC (VALVE) INSUFFICIENCY (3) Cervical radiculopathy Code(s): M54.12 - RADICULOPATHY, CERVICAL REGION (4) Coronary artery disease Code(s): I25.10 - ATHSCL HEART DISEASE OF [place] CORONARY ARTERY W/O ANG PCTRS (5) Cough Code(s): R05 - COUGH (6) Diastolic CHF Code(s): I50.30 - UNSPECIFIED DIASTOLIC (CONGESTIVE) HEART FAILURE (7) HTN (hypertension) Code(s): I10 - ESSENTIAL (PRIMARY) HYPERTENSION (8) Hyperlipidemia Code(s): E78.5 - HYPERLIPIDEMIA, UNSPECIFIED (9) Hypothyroidism Code(s): E03.9 - HYPOTHYROIDISM, UNSPECIFIED (10) Leukocytosis Code(s): D72.829 - ELEVATED WHITE BLOOD CELL COUNT, UNSPECIFIED (11) Lung nodule Code(s): R91.1 - SOLITARY PULMONARY NODULE (12) Nasal congestion Code(s): R09.81 - NASAL CONGESTION (13) Overactive bladder Code(s): N32.81 - OVERACTIVE BLADDER (14) Shortness of breath Code(s): R06.02 - SHORTNESS OF BREATH (15) Shoulder pain, right Code(s): M25.511 - PAIN IN RIGHT SHOULDER Qualifiers: Chronicity: acute Qualified Code(s): M25.511 - Pain in right shoulder Assessment/Plan - Problems (1) COPD exacerbation Assessment/Plan: bronchodilators, steroids, antibiotics per home supervisor. Code(s): J44.1 - CHRONIC OBSTRUCTIVE PULMONARY DISEASE W (ACUTE) EXACERBATION (2) Cervical radiculopathy Code(s): M54.12 - RADICULOPATHY, CERVICAL REGION (3) Nasal congestion Code(s): R09.81 - NASAL CONGESTION (4) Diastolic CHF Code(s): I50.30 - UNSPECIFIED DIASTOLIC (CONGESTIVE) HEART FAILURE (5) Aortic regurgitation Assessment/Plan: f/u ECHO for LVEF, valve status (hx significant AR). Code(s): I35.1 - NONRHEUMATIC AORTIC (VALVE) INSUFFICIENCY (6) Coronary artery disease Assessment/Plan: no chest pain. TNI < 0.02. Normal LVEF on 05/2016 ECHO> Hx ?MA-->coronary angiogram at [facility]: f/u records. Code(s): I25.10 - ATHSCL HEART DISEASE OF [place] CORONARY ARTERY W/O ANG PCTRS (7) Hyperlipidemia Assessment/Plan: start statin; keep LDL cholesterol < 70 mg/dL (presently >130). Code(s): E78.5 - HYPERLIPIDEMIA, UNSPECIFIED
[2017-02-17 11:55] LABS: METAMYELOCYTE 1 % (0-2)
[2017-02-17 11:56] LABS: PLATELET ESTIMATE ADEQUATE (NORMAL)
--- NOTE | 2017-02-17 12:21 | PN ---
Teaching Attending Note Name of Resident: Kandice Subramanian ATTENDING PHYSICIAN STATEMENT I saw and evaluated the patient. I reviewed the resident's note and discussed the case with the resident. I agree with the resident's findings and plan as documented. SUBJECTIVE:currently asymptomatic. denies CP, SOB,fever, chills, cough, n/V/C/D OBJECTIVE: Last Vital Signs Temp Pulse Resp BP Pulse Ox 97.5 F L 98 H 18 124/57 95 02/17/17 09:28 02/17/17 11:12 02/17/17 09:28 02/17/17 09:28 02/17/17 11:12 General NAD Lungs improved airation in the apices. no wheezing or rhales ASSESSMENT AND PLAN: 81yo F with PMH COPD on home O2, CAD, HTN, hypothyroid and Diastolic CHF presented to the ER and was admitted for further evaluation of their emergent condition 1. Acute COPD exacerbation-clinically improved. transitioned to prednisone 40mg today. instructed pt to decrease by 10mg every 3 days. to call pulmonary once reaching 20mg for further instruction. did not qualify for home O2. will need close pulmonary follow up. PFT as outpatient. 3. Hypokalemia- resolved 4. hypomagnesemia- resolved 5. Diastolic CHF- no signs of volume overload.will d/c on cardizem, will monitor 6. DVT ppx- lovenox 7. d/c home today
[2017-02-17] MEDS ORDERED: MAGNESIUM OXIDE 400 MG TABLET (FP) PO ONE (14:00)
--- NOTE | 2017-02-17 14:07 | DS ---
Physical Exam: SUBJECTIVE: Patient seen and examined, breathing has improved, pre and post exercise pulse ox maintained O2> 88 %. NO new complaints. OBJECTIVE: Vital Signs Period Temp Pulse Resp BP Sys/Sawyer Pulse Ox Last 24 Hr 97.2 F-98.6 F 68-98 18-20 124-159/57-65 94-98 PHYSICAL EXAM GENERAL: The patient is frail, awake, alert, and fully oriented, in no acute distress. HEAD: Normal with no signs of trauma. EYES: PERRL, extraocular movements intact, sclera anicteric, conjunctiva clear. ENT: Ears normal, nares patent, oropharynx clear without exudates, moist mucous membranes. NECK: Trachea midline, full range of motion, supple. LUNGS: decreased Breath sounds equal, wheezing has improved; less chest tightness; no crackles or ronchi HEART: Regular rate and rhythm, S1, S2 without murmur, rub or gallop. ABDOMEN: Soft, nontender, nondistended, normoactive bowel sounds, no guarding, no rebound, no hepatosplenomegaly, no masses. EXTREMITIES: 2+ pulses, warm, well-perfused, no edema. NEUROLOGICAL: Cranial nerves II through XII grossly intact. Normal speech, gait not observed. PSYCH: Normal mood, normal affect. SKIN: Warm, dry, normal turgor, no rashes or lesions noted. LABS Laboratory Results - last 24 hr 02/17/17 02/17/17 07:00 07:00 WBC 18.2 H RBC 4.31 Hgb 12.5 Hct 37.0 MCV 85.8 MCHC 33.8 RDW 13.8 Plt Count 361 MPV 8.9 Neutrophils % 83.0 H Lymphocytes % 9.0 D Monocytes % 5.0 D Metamyelocytes 1 Myelocytes 1 Promyelocytes 1 Differential Comment Manual diff done Platelet Estimate Adequate Sodium 140 Potassium 3.6 Chloride 97 L Carbon Dioxide 33 H Anion Gap 10 BUN 21 H Creatinine 0.9 Random Glucose 83 D Calcium 9.6 Magnesium 1.5 L HOSPITAL COURSE: Date of Admission:02/14/17 Date of Discharge: 02/17/17 Patient is a 81 year old woman with significant past medical history of COPD, chronic steroid use, HTN recently discharged from [facility] presented to the ED with SOB admitted for COPD exacerbation. She has had multiple hospitalization with in the past month for same condition. # COPD exacerbation : Improved -steroids decreased to prednisone 40mg daily -albuterol scheduled TID and prn -Tudorza BID -Nasal oxygen @ 2L Maintain saturation between 88-90 % -Upon discharge patient was given 40mg of predisone to taper down by 10mg q three days; -She is to follow up with Dr. Mccrary in one week. # Oral thrush likely due to nebulizer: Improved -Nystatin swish and spit -Patient mentions she doesn't want to use the steroid nebulizer because she developed oral thrush # Increased Creatinine Kinase- unknown etiology which resolved -CK-200---->125; Repeat CK-MB normal. -Troponin x 2 negative # Electrolyte abnormalities- Hypokalemia and Hypomagnesemia: resolved # Diastolic CHF - Not in exacerbation # Hypertension- stable - Continue Chlorthalidone 25mg po qd - Toprol XL was changed to cardizem 120 qd due to broncho constrictive effects of beta suyapa #CAD -Atorvastatin was increased to 40mg po due to LDL >130 -patient was also seen by cardiology during visit; no additional work up was indicated # Hypothyroidism - Continue Levothyroxine 25mcg qd po # Urinary frequency - - continue home medication myrbetriq. #Cervical radiculopathy - Gabapentin solution 200ml q8hr - Flexaril 5mg po prn Once a day #HLD: -increased statin to 40mg HS due to LDL >130 # FEN Not on IV fluids Electrolytes repleted Low sodium soft diet # Prophylaxis For DVT: lovenox sq For GI: Not indicated Disposition: taper steroids ; patient advised to contact primary once she reached 20mg of prednisone to see if regimen is suitable. Minutes to complete discharge: 35 Discharge Summary Reason For Visit: COPD EXACERBATION Current Active Problems COPD exacerbation (Acute) Leukocytosis (Acute) Nasal congestion (Acute) Shortness of breath (Acute) Coronary artery disease (Chronic) Cough (Chronic) Diastolic CHF (Chronic) HTN (hypertension) (Chronic) Condition: Improved - Instructions Diet, Activity, Other Instructions: Mrs. Orantes, you have been diagnosed with an acute exacerbation of your COPD. Please adhere to the medication regimen listed. Please follow up with your primary in one week. Please continue taking the steroid as directed: 40mg once a day for two more days 30mg once a day for three days 20mg once a day for three days 10mg once a day for three days Once you have reached 20mg; please call Dr. Mccrary to explain ho you are feeling. If you experience any worsening of symptoms, including chest pain, worsening shortness of breath. please return tho the emergency room. Referrals: Jignesh Mccrary MD [Primary Care Provider] - Disposition: HOME - Home Medications Comprehensive Discharge Medication List: Ambulatory Orders Albuterol Sulfate Inhaler - [Ventolin HFA Inhaler -] 1 - 2 inh IH TID PRN Estrogens,Conjugated [Premarin] 1.25 mg PO DAILY 11/16/12 Levothyroxine [Synthroid -] 25 mcg PO DAILY 11/16/12 Albuterol 2.5/Ipratropium 0.5 [Duoneb -] 1 neb NEB TID PRN 02/19/15 Aspirin [ASA -] 81 mg PO DAILY 02/19/15 Mirabegron [Myrbetriq] 25 mg PO DAILY 02/19/15 Cyclobenzaprine HCl [Flexeril -] 5 mg PO PRN 10/02/16 Oxycodone HCl/Acetaminophen [Percocet 5-325 mg Tablet] 1 tab PO PRN 10/02/16 Chlorthalidone [Hygroton -] 25 mg PO DAILY 02/06/17 Gabapentin [Neurontin -] 100 mg PO Q8H 02/06/17 Acetaminophen [Tylenol .Regular Strength -] 325 mg PO ONCE PRN #0 tablet Aclidinium [place] [Tudorza -] 1 puff IH BID #1 inhaler 02/17/17 Atorvastatin Ca [Lipitor] 40 mg PO HS #30 tablet 02/17/17 Diltiazem Cd [Cardizem Cd -] 120 mg PO HS #30 cap 02/17/17 Gabapentin Liquid [Neurontin Oral Liquid -] 100 mg PO TID #1 ml 02/17/17 Nystatin Oral Suspension - [Nystatin Oral Susp 056735 Units/5 ML -] 500,000 units PO Q6HPO #1 bottle 02/17/17 Prednisone 10 mg PO DAILY #23 tablet 02/17/17 This patient is new to me today: No Emergency Visit: Yes ED Registration Date: 02/14/17 Care time: The patient presented to the Emergency Department on the above date and was hospitalized for further evaluation of their emergent condition. Critical Care patient: No - Discharge Referral Referred to [facility] Med [facility] No
[2017-02-17 17:04] VITALS: BP 133/46; PULSE 91; TEMP 97.8
== END 2017-02-17 19:05 | disposition home or self-care (01) | DRG 191 ==
LOC: JER 22:03 → JERBED 02-14 02:41 → UNDOADMIN 02-14 02:47 → JERBED 02-14 02:47 → J8W 02-14 10:37
PROVIDERS: ADMIT Internal Medicine; ATTEND Internal Medicine
DX: J44.1 Chronic obstructive pulmonary disease with (acute) exacerbation (principal); B37.0 Candidal stomatitis; I50.32 Chronic diastolic (congestive) heart failure; E87.6 Hypokalemia; E83.42 Hypomagnesemia; I25.10 Atherosclerotic heart disease of native coronary artery without angina pectoris; M54.12 Radiculopathy, cervical region; D72.829 Elevated white blood cell count, unspecified; E03.9 Hypothyroidism, unspecified; K59.00 Constipation, unspecified; R35.0 Frequency of micturition; E78.5 Hyperlipidemia, unspecified; I25.2 Old myocardial infarction; I35.1 Nonrheumatic aortic (valve) insufficiency; R91.1 Solitary pulmonary nodule; M25.511 Pain in right shoulder; I11.0 Hypertensive heart disease with heart failure
CPT/HCPCS: 36415; 71010-TC; 80048; 80053; 81003; 82550; 82553; 83735; 83880; 84484; 85025; 85610; 93005; 93010; 94640; 94761; 99283-25; J1410

== ENCOUNTER 2017-09-19 14:19 | Observation (INO) | payer OTHER ==
[2017-09-19 14:39] VITALS: BMI 17.6
--- NOTE | 2017-09-19 14:40 | PDOC ---
History of Present Illness <Faiza Bravo - Last Filed: 09/19/17 17:28> - General History Source: Patient Exam Limitations: No Limitations - History of Present Illness Initial Comments: 09/19/17 15:56 The patient is an 81 year old female with a significant PMH of COPD (on home O2 prn), HTN, [place], CAD, and anxiety who presents to the emergency department with nausea and dizziness beginning approximately 2 hours ago. The patient reports waking up this morning and feeling lightheaded and dizzy, shortly after which her nausea developed. She notes her dizziness is aggravated by movement and moving her head. The patient reports dry vomiting intermittently for the past two hours with occasional saliva-based sputum. The patient also states that she had a coughing episode for about 5 minutes while she was waiting for evaluation at the ED. The patient denies chest pain, shortness of breath, headache and dizziness. Denies fever, chills, nausea, vomit, diarrhea and constipation. Denies dysuria, frequency, urgency and hematuria. Allergies: NKA Past surgical history: Cholecystectomy. Social history: No reported cigarette, alcohol, or drug use. PCP: Dr. Mccrary <John Tilley - Last Filed: 09/19/17 18:42> - General Chief Complaint: Nausea/Vomiting Stated Complaint: Nausea/Vomiting Time Seen by Provider: 09/19/17 14:40 Past History - Past Medical History Anemia: No Asthma: No Cancer: Yes (UTERINE) Cardiac Disorders: Yes (2 CO'S) CVA: No COPD: Yes CHF: No Dementia: No Diabetes: No GI Disorders: No Disorders: No HTN: Yes Hypercholesterolemia: No Liver Disease: No Seizures: No Thyroid Disease: Yes - Surgical History Abdominal Surgery: Yes (BLOCK[place]) Cardiac Surgery: No Cholecystectomy: Yes Lung Surgery: No Neurologic Surgery: No Orthopedic Surgery: No - Immunization History Immunization Up to Date: Yes - Suicide/Smoking/Psychosocial Hx Smoking Status: Yes Smoking History: Never smoked Have you smoked in the past 12 months: No Number of Cigarettes Smoked Daily: 10 If you are a former smoker, when did you quit?: 5 years ago Information on smoking cessation initiated: No 'Breaking Loose' booklet given: 11/20/12 Hx Alcohol Use: No Drug/Substance Use Hx: No Substance Use Type: None Hx Substance Use Treatment: No <Faiza Bravo - Last Filed: 09/19/17 17:28> <John Tilley - Last Filed: 09/19/17 18:42> - Past Medical History Allergies/Adverse Reactions: Allergies Allergy/AdvReac Type Severity Reaction Status Date / Time No Known Allergies Allergy Verified 02/13/17 22:16 Home Medications: Ambulatory Orders Albuterol Sulfate Inhaler - [Ventolin HFA Inhaler -] 1 - 2 inh IH TID PRN Estrogens,Conjugated [Premarin] 1.25 mg PO DAILY 11/16/12 Levothyroxine [Synthroid -] 25 mcg PO DAILY 11/16/12 Albuterol 2.5/Ipratropium 0.5 [Duoneb -] 1 neb NEB TID PRN 02/19/15 Aspirin [ASA -] 81 mg PO DAILY 02/19/15 Mirabegron [Myrbetriq] 25 mg PO DAILY 02/19/15 Cyclobenzaprine HCl [Flexeril -] 5 mg PO PRN 10/02/16 Oxycodone HCl/Acetaminophen [Percocet 5-325 mg Tablet] 1 tab PO PRN 10/02/16 Chlorthalidone [Hygroton -] 25 mg PO DAILY 02/06/17 Gabapentin [Neurontin -] 100 mg PO Q8H 02/06/17 Acetaminophen [Tylenol .Regular Strength -] 325 mg PO ONCE PRN #0 tablet Aclidinium [place] [Tudorza -] 1 puff IH BID #1 inhaler 02/17/17 Atorvastatin [place] [Lipitor] 40 mg PO HS #30 tablet 02/17/17 Diltiazem [Cardizem -] 30 mg PO TID #90 tablet 02/17/17 Gabapentin Liquid [Neurontin Oral Liquid -] 100 mg PO TID #1 ml 02/17/17 Miscellaneous Medical Supply [Outpatient Order] 1 each ASDIR #1 misc Nystatin Oral Suspension - [Nystatin Oral Susp 260351 Units/5 ML -] 500,000 units PO Q6HPO #1 bottle 02/17/17 Prednisone 10 mg PO DAILY #23 tablet 02/17/17 Review of Systems - Review of Systems Able to Perform ROS?: Yes Comments:: 09/19/17 15:56 GENERAL/CONSTITUTIONAL: No fever or chills. No weakness. HEAD, EYES, EARS, NOSE AND THROAT: No change in vision. No ear pain or discharge. No sore throat. CARDIOVASCULAR: No chest pain or shortness of breath. RESPIRATORY: (+) Cough. No wheezing, or hemoptysis. GASTROINTESTINAL: (+) Nausea. (+) Dry heaving, occasional saliva-based sputum. No diarrhea or constipation. GENITOURINARY: No dysuria, frequency, or change in urination. MUSCULOSKELETAL: No joint or muscle swelling or pain. No neck or back pain. SKIN: No rash NEUROLOGIC: (+) Dizziness. No headache, vertigo, loss of consciousness, or change in strength/sensation. ENDOCRINE: No increased thirst. No abnormal weight change. HEMATOLOGIC/LYMPHATIC: No anemia, easy bleeding, or history of blood clots. ALLERGIC/IMMUNOLOGIC: No hives or skin allergy. <John Tilley - Last Filed: 09/19/17 18:42> *Physical Exam - Vital Signs Last Vital Signs Temp Pulse Resp BP Pulse Ox 98.4 F 73 18 166/60 100 09/19/17 14:34 09/19/17 14:34 09/19/17 14:34 09/19/17 14:34 09/19/17 14:34 <Faiza Bravo - Last Filed: 09/19/17 17:28> - Vital Signs Last Vital Signs Temp Pulse Resp BP Pulse Ox 98.4 F 73 18 166/60 100 09/19/17 14:34 09/19/17 14:34 09/19/17 14:34 09/19/17 14:34 09/19/17 14:34 - Physical Exam Comments: 09/19/17 15:56 GENERAL: Awake, alert, and fully oriented, in no acute distress HEAD: No signs of trauma EYES: PERRLA, EOMI, sclera anicteric, conjunctiva clear ENT: Auricles normal inspection, hearing grossly normal, nares patent, oropharynx clear without exudates. Moist mucosa NECK: Normal ROM, supple, no lymphadenopathy, JVD, or masses LUNGS: Breath sounds equal, clear to auscultation bilaterally. No wheezes, and no crackles HEART: Regular rate and rhythm, normal S1 and S2, no murmurs, rubs or gallops ABDOMEN: Soft, nontender, normoactive bowel sounds. No guarding, no rebound. No masses EXTREMITIES: Normal range of motion, no edema. No clubbing or cyanosis. No cords, erythema, or tenderness NEUROLOGICAL: Cranial nerves II through XII grossly intact. Normal speech. SKIN: Warm, Dry, normal turgor, no rashes or lesions noted. <John Tilley - Last Filed: 09/19/17 18:42> Heart Score/ECG Review #1 09/19/17 17:39 Vent rate 62 bpm Normal sinus rhythm Possible left atrial enlargement Left axis deviation Septal infarct, age undetermined ABnormal ECG <John Tilley - Last Filed: 09/19/17 18:42> ED Treatment Course - LABORATORY CBC & Chemistry Diagram: 09/19/17 15:42 09/19/17 15:42 <Faiza Bravo - Last Filed: 09/19/17 17:28> - LABORATORY CBC & Chemistry Diagram: 09/19/17 15:42 09/19/17 15:42 - Consult/PCP Time Called: 17:20 Case discussed with personal care physician: Elliot Mccrary - Additional Consults Time Called: 17:25 Consult/PCP: Dr. Romero (for admission) <John Tilley - Last Filed: 09/19/17 18:42> Medical Decision Making - Medical Decision Making 09/19/17 17:28 Pt presents to the ED complaining of the acute onset of vertigo and nausea and vomiting that are worse with movement of her head. Patient is neurologically intact, although I did not try to have her ambulate. Symptoms may represent peripheral vertigo, but given her age, I am concerned for central vertigo. labs show mild troponin elevation. Will treat with asprin. Will admit for observation for MRI. Case discussed with Dr. Romero. <Faiza Bravo - Last Filed: 09/19/17 17:28> *DC/Admit/Observation/Transfer - Discharge Dispostion Admit: Yes <Faiza Bravo - Last Filed: 09/19/17 17:28> - Attestations Scribe Attestion: 09/19/17 15:57 Documentation prepared by John Tilley, acting as medical assistant supervisor for Faiza Bravo MD. <John Tilley - Last Filed: 09/19/17 18:42> Diagnosis at time of Disposition: Vertigo - Discharge Dispostion Condition at time of disposition: Good - Referrals Referrals: Elliot Mccrary MD [Primary Care Provider] - - Patient Instructions - Post Discharge Activity
[2017-09-19 16:01] LABS: BASOPHIL 0.6 % (0-2.0); EOSINOPHIL 1.7 % (0-4.5); MCH 27.8 pg (25.7-33.7); MCHC 32.5 g/dl (32.0-36.0); MEAN CELL VOLUME 85.6 fl (80-96); MEAN PLT VOLUME 8.4 fl (7.5-11.1); NEUTROPHILS 80.9 % (42.8-82.8); PLATELET COUNT 282 K/MM3 (134-434); RDW 14.6 % (11.6-15.6); WHITE BLOOD COUNT 11.5 K/mm3 (4.0-10.0)
[2017-09-19 16:53] LABS: ALBUMIN 3.6 g/dl (3.4-5.0); ANION GAP 7 (8-16); BILIRUBIN,TOTAL 0.4 mg/dL (0.2-1.0); CALCIUM 9.1 mg/dL (8.5-10.1); CO2 30 mmol/L (21-32); CREATININE 0.9 mg/dL (0.55-1.02); GLUCOSE,RANDOM 118 mg/dL (74-106); SGOT/AST 17 U/L (15-37); SGPT/ALT 15 U/L (12-78); TOT PROT 6.8 g/dl (6.4-8.2)
[2017-09-19 16:55] LABS: ALK PHOS 86 U/L (45-117); CPK 63 IU/L (26-192); TROPONIN I 0.09 ng/ml (0.00-0.05)
[2017-09-19] MEDS ORDERED: ASPIRIN 81 MG CHEWABLE TABLETS PO ONE (16:57)
[2017-09-19 17:32] LABS: URINE APPEARANCE SLCLOUDY; URINE BILIRUBIN NEGATIVE (NEGATIVE); URINE BLOOD NEGATIVE (NEGATIVE); URINE COLOR YELLOW; URINE GLUCOSE (UA) NEGATIVE (NEGATIVE); URINE KETONE NEGATIVE (NEGATIVE); URINE NITRITE NEGATIVE (NEGATIVE); URINE PROTEIN NEGATIVE (NEGATIVE); URINE UROBILINOGEN NEGATIVE mg/dL (0.2-1.0)
[2017-09-19] MEDS ORDERED: ASPIRIN 81 MG CHEWABLE TABLETS ONE (19:08)
--- NOTE | 2017-09-19 19:40 | HP ---
Admitting History and Physical - Primary Care Physician PCP: Ilene Romero - Admission History of Present Illness: 81 year old female with a significant PMH of COPD (on home O2 prn), HTN, [place], CAD , and anxiety who presents to the emergency department with nausea and dizziness beginning approximately 2 hours ago. The patient reports waking up this morning and feeling lightheaded and dizzy, shortly after which her nausea developed. She notes her dizziness is aggravated by movement and moving her head. The patient reports dry vomiting intermittently for the past two hours with occasional saliva-based sputum, and coughing. - Past Medical History Cardiovascular: Yes: CAD, HTN, [place] Pulmonary: Yes: Bronchitis, COPD - Smoking History Smoking history: Never smoked Have you smoked in the past 12 months: No Aproximately how many cigarettes per day: 10 If you are a former smoker, when did you quit?: 5 years ago - Alcohol/Substance Use Hx Alcohol Use: No Home Medications - Allergies Allergies/Adverse Reactions: Allergies Allergy/AdvReac Type Severity Reaction Status Date / Time No Known Allergies Allergy Verified 02/13/17 22:16 - Home Medications Home Medications: Ambulatory Orders Albuterol Sulfate Inhaler - [Ventolin HFA Inhaler -] 1 - 2 inh IH TID PRN Estrogens,Conjugated [Premarin] 1.25 mg PO DAILY 11/16/12 Levothyroxine [Synthroid -] 25 mcg PO DAILY 11/16/12 Albuterol 2.5/Ipratropium 0.5 [Duoneb -] 1 neb NEB TID PRN 02/19/15 Aspirin [ASA -] 81 mg PO DAILY 02/19/15 Mirabegron [Myrbetriq] 25 mg PO DAILY 02/19/15 Acetaminophen [Tylenol .Regular Strength -] 325 mg PO ONCE PRN #0 tablet Aclidinium [place] [Tudorza -] 1 puff IH BID #1 inhaler 02/17/17 Miscellaneous Medical Supply [Outpatient Order] 1 each ASDIR #1 misc Alprazolam 0.5 mg PO HS 09/19/17 Metoprolol Succinate [Toprol Xl -] 25 mg PO DAILY 09/19/17 Ranitidine HCl [Zantac] 150 mg PO DAILY 09/19/17 Physical Examination Vital Signs: Vital Signs Temperature 98.6 F 09/19/17 18:53 Pulse Rate 84 09/19/17 18:53 Respiratory Rate 16 09/19/17 18:53 Blood Pressure 119/48 09/19/17 18:53 O2 Sat by Pulse Oximetry (%) 97 09/19/17 18:53 Constitutional: Yes: No Distress HENT: Yes: Atraumatic Neck: Yes: Supple Cardiovascular: Yes: Regular Rate and Rhythm Respiratory: Yes: CTA Bilaterally Gastrointestinal: Yes: Normal Bowel Sounds Extremities: Yes: WNL Neurological: Yes: Alert, Oriented Labs: CBC, BMP 09/19/17 15:42 09/19/17 15:42 Problem List - Problems (1) Vertigo Assessment/Plan: will try meclizine Code(s): R42 - DIZZINESS AND GIDDINESS (2) COPD exacerbation Assessment/Plan: stable Code(s): J44.1 - CHRONIC OBSTRUCTIVE PULMONARY DISEASE W (ACUTE) EXACERBATION (3) Hyperlipidemia Assessment/Plan: on meds stable Code(s): E78.5 - HYPERLIPIDEMIA, UNSPECIFIED (4) Hypothyroidism Assessment/Plan: on meds stable Code(s): E03.9 - HYPOTHYROIDISM, UNSPECIFIED (5) HTN (hypertension) Assessment/Plan: stable on meds Code(s): I10 - ESSENTIAL (PRIMARY) HYPERTENSION Assessment/Plan Laboratory Tests 09/19/17 09/19/17 09/19/17 15:12 15:42 15:42 WBC 11.5 H RBC 4.50 Hgb 12.5 Hct 38.5 MCV 85.6 MCH 27.8 MCHC 32.5 RDW 14.6 Plt Count 282 D MPV 8.4 Neutrophils % 80.9 Lymphocytes % 10.5 D Monocytes % 6.3 Eosinophils % 1.7 Basophils % 0.6 Sodium 140 Potassium 4.5 D Chloride 103 Carbon Dioxide 30 Anion Gap 7 L BUN 20 H Creatinine 0.9 Creat Clearance w eGFR 59.80 Random Glucose 118 H D Calcium 9.1 Total Bilirubin 0.4 D AST 17 D ALT 15 D Alkaline Phosphatase 86 D Creatine Kinase 63 Troponin I 0.09 H Total Protein 6.8 Albumin 3.6 Urine Color Yellow Urine Appearance Slcloudy Urine pH 6.0 Ur Specific [place] 1.017 Urine Protein Negative Urine Glucose (UA) Negative Urine Ketones Negative Urine Blood Negative Urine Nitrite Negative Urine Bilirubin Negative Urine Urobilinogen Negative Active Medications Generic Name Dose Route Start Last Admin Trade Name Jan PRN Reason Stop Dose Admin Albuterol/Ipratropium 1 amp 09/19/17 19:41 Duoneb - NEB Q8H PRN SHORT OF BREATH/WHEEZING Alprazolam 0.5 mg 09/19/17 22:00 Xanax - PO HS [place] Aspirin 81 mg 09/20/17 10:00 Asa - PO DAILY [place] Levothyroxine Sodium 25 mcg 09/20/17 10:00 Synthroid - PO DAILY [place] Metoprolol Succinate 25 mg 09/20/17 10:00 Toprol Xl - PO DAILY [place] Non-Formulary Medication 25 mg 09/20/17 10:00 Mirabegron [Myrbetriq] PO DAILY [place] Ranitidine HCl 150 mg 09/20/17 10:00 Zantac - PO DAILY [place] Tiotropium [place] 1 puff 09/20/17 10:00 Spiriva - IH DAILY [place]
[2017-09-19] MEDS ORDERED: ONDANSETRON 4 MG/2 ML VIAL IVPB PRN (20:02)
[2017-09-19] MEDS: ALPRAZolam 0.25 MG TABLET PO SCH (22:16)
[2017-09-19 22:23] LABS: URINE LEUK ESTERASE Negative (NEGATIVE)
[2017-09-19] MEDS: ALBUTEROL SO4 2.5/IPRATROPIUM 0.5 INH SOL 3 ML VIAL.NEB. NEB PRN (22:34)
[2017-09-19 22:56] LABS: TROPONIN I 0.87 ng/ml (0.00-0.05)
[2017-09-20 07:39] LABS: BASOPHIL 0.5 % (0-2.0); EOSINOPHIL 1.8 % (0-4.5); MCH 28.2 pg (25.7-33.7); MCHC 33.3 g/dl (32.0-36.0); MEAN CELL VOLUME 84.6 fl (80-96); MEAN PLT VOLUME 8.3 fl (7.5-11.1); NEUTROPHILS 65.1 % (42.8-82.8); PLATELET COUNT 261 K/MM3 (134-434); RDW 14.3 % (11.6-15.6); WHITE BLOOD COUNT 9.3 K/mm3 (4.0-10.0)
[2017-09-20 08:15] LABS: CPK 71 IU/L (26-192)
[2017-09-20 08:40] LABS: TROPONIN I 0.58 ng/ml (0.00-0.05)
[2017-09-20 08:57] LABS: ALBUMIN 2.9 g/dl (3.4-5.0); ALK PHOS 66 U/L (45-117); ANION GAP 8 (8-16); BILIRUBIN,TOTAL 0.4 mg/dL (0.2-1.0); CALCIUM 8.6 mg/dL (8.5-10.1); CO2 30 mmol/L (21-32); CREATININE 0.9 mg/dL (0.55-1.02); GLUCOSE,RANDOM 77 mg/dL (74-106); SGOT/AST 16 U/L (15-37); SGPT/ALT 13 U/L (12-78); TOT PROT 5.5 g/dl (6.4-8.2)
[2017-09-20] MEDS ORDERED: PT OWN MED DRAWER 7, Y5N ONE (09:44)
[2017-09-20] MEDS: RANITIDINE HCL 150 MG TABLET (FP) PO SCH ×2 (09:55→17:11)
[2017-09-20] MEDS: ASPIRIN 81 MG CHEWABLE TABLETS PO SCH (09:56)
[2017-09-20] MEDS: TIOTROPIUM BROMIDE 18 MCG/INH (DEVICE W/ 5 CAPSULES) IH SCH (09:57)
[2017-09-20] MEDS ORDERED: PATIENT'S OWN MEDICATION (NON-FORMULARY) (Mirabegron [Myrbetriq] 25 MG) PO SCH (10:00)
[2017-09-20] MEDS ORDERED: LEVOTHYROXINE NA 25 MCG TABLET (FP) PO SCH (10:00)
[2017-09-20] MEDS ORDERED: FLU VACCINE QUAD 60 MCG/0.5 ML (MDV 17-18) IM ONE (10:00)
[2017-09-20] MEDS: MECLIZINE HCL 12.5 MG TABLET PO PRN (10:10)
--- NOTE | 2017-09-20 10:48 | CON.CARD ---
Consult Consult Specialty:: Cardiology - History of Present Illness History of Present Illness: 81 year old female with a significant PMH of COPD (on home O2 prn), HTN, [place], CAD , and anxiety who presents to the emergency department with nausea and dizziness beginning approximately 2 hours ago. The patient reports waking up this morning and feeling lightheaded and dizzy, shortly after which her nausea developed. She notes her dizziness is aggravated by movement and moving her head. The patient reports dry vomiting intermittently for the past two hours with occasional saliva-based sputum, and coughing. PMH Coronary angiogram at [facility] Exploratory laparotomy for Peritonitis Hysterectomy Ongoing medical problems COPD Emphysema Moderately severe aortic regurgitation (2013 ECHO; normal LVEF; mild LVH; normal LV size; abnormal diastolic compliance) Rheumatoid Arthritis - History Source History Provided By: Patient, Medical Record - Past Medical History Cardio/Vascular: Yes: CAD, HTN, [place] Pulmonary: Yes: Bronchitis, COPD - Alcohol/Substance Use Hx Alcohol Use: No - Smoking History Smoking history: Never smoked Have you smoked in the past 12 months: No Aproximately how many cigarettes per day: 10 If you are a former smoker, when did you quit?: 15years ago Home Medications - Allergies Allergies/Adverse Reactions: Allergies Allergy/AdvReac Type Severity Reaction Status Date / Time No Known Allergies Allergy Verified 02/13/17 22:16 - Home Medications Home Medications: Ambulatory Orders Albuterol Sulfate Inhaler - [Ventolin HFA Inhaler -] 1 - 2 inh IH TID PRN Estrogens,Conjugated [Premarin] 1.25 mg PO DAILY 11/16/12 Levothyroxine [Synthroid -] 25 mcg PO DAILY 11/16/12 Albuterol 2.5/Ipratropium 0.5 [Duoneb -] 1 neb NEB TID PRN 02/19/15 Aspirin [ASA -] 81 mg PO DAILY 02/19/15 Mirabegron [Myrbetriq] 25 mg PO DAILY 02/19/15 Acetaminophen [Tylenol .Regular Strength -] 325 mg PO ONCE PRN #0 tablet Aclidinium [place] [Tudorza -] 1 puff IH BID #1 inhaler 02/17/17 Miscellaneous Medical Supply [Outpatient Order] 1 each ASDIR #1 misc Alprazolam 0.5 mg PO HS 09/19/17 Metoprolol Succinate [Toprol Xl -] 25 mg PO DAILY 09/19/17 Ranitidine HCl [Zantac] 150 mg PO DAILY 09/19/17 Review of Systems - Review of Systems Constitutional: reports: No Symptoms Eyes: reports: No Symptoms HENT: reports: No Symptoms Neck: reports: No Symptoms Cardiovascular: reports: No Symptoms Respiratory: reports: No Symptoms Gastrointestinal: reports: No Symptoms Genitourinary: reports: No Symptoms Breasts: reports: No Symptoms Reported Musculoskeletal: reports: No Symptoms Integumentary: reports: No Symptoms Neurological: reports: No Symptoms Endocrine: reports: No Symptoms Hematology/Lymphatic: reports: No Symptoms Psychiatric: reports: No Symptoms Vital Signs: Vital Signs Temperature 97.4 F L 09/20/17 05:00 Pulse Rate 70 09/20/17 09:15 Respiratory Rate 18 09/20/17 09:15 Blood Pressure 96/43 09/20/17 09:15 O2 Sat by Pulse Oximetry (%) 98 09/20/17 09:59 Constitutional: Yes: Well Nourished, No Distress, Calm Eyes: Yes: WNL, Conjunctiva Clear, EOM Intact HENT: Yes: WNL, Atraumatic, Normocephalic Neck: Yes: WNL, Supple, Trachea Midline Respiratory: Yes: WNL, Regular, CTA Bilaterally Gastrointestinal: Yes: WNL, Normal Bowel Sounds Renal/: Yes: WNL Cardiovascular: Yes: WNL, Regular Rate and Rhythm Musculoskeletal: Yes: WNL Extremities: Yes: WNL Integumentary: Yes: WNL Neurological: Yes: WNL, Alert, Oriented ...Motor Strength: WNL Psychiatric: Yes: WNL, Alert, Oriented - Other Data Labs, Other Data: CBC, BMP 09/20/17 05:25 09/20/17 05:25 Troponin, BNP 09/19/17 09/19/17 09/20/17 15:42 22:00 05:25 Troponin I 0.09 H 0.87 H* 0.58 H Troponin, BNP 09/19/17 09/19/17 09/20/17 15:42 22:00 05:25 Troponin I 0.09 H 0.87 H* 0.58 H Imaging - Results Chest X-ray: Image Reviewed (no i/e) EKG: Image Reviewed (sr ant septal [place] old) Problem List - Problems (1) Vertigo Code(s): R42 - DIZZINESS AND GIDDINESS (2) Aortic regurgitation Code(s): I35.1 - NONRHEUMATIC AORTIC (VALVE) INSUFFICIENCY (3) COPD exacerbation Code(s): J44.1 - CHRONIC OBSTRUCTIVE PULMONARY DISEASE W (ACUTE) EXACERBATION (4) Cervical radiculopathy Code(s): M54.12 - RADICULOPATHY, CERVICAL REGION (5) Hyperlipidemia Code(s): E78.5 - HYPERLIPIDEMIA, UNSPECIFIED (6) Hypothyroidism Code(s): E03.9 - HYPOTHYROIDISM, UNSPECIFIED (7) Leukocytosis Code(s): D72.829 - ELEVATED WHITE BLOOD CELL COUNT, UNSPECIFIED (8) Lung nodule Code(s): R91.1 - SOLITARY PULMONARY NODULE (9) Nasal congestion Code(s): R09.81 - NASAL CONGESTION (10) Overactive bladder Code(s): N32.81 - OVERACTIVE BLADDER (11) Shortness of breath Code(s): R06.02 - SHORTNESS OF BREATH (12) Shoulder pain, right Code(s): M25.511 - PAIN IN RIGHT SHOULDER Qualifiers: Chronicity: acute Qualified Code(s): M25.511 - Pain in right shoulder (13) Coronary artery disease Code(s): I25.10 - ATHSCL HEART DISEASE OF [place] CORONARY ARTERY W/O ANG PCTRS (14) Cough Code(s): R05 - COUGH (15) Diastolic CHF Code(s): I50.30 - UNSPECIFIED DIASTOLIC (CONGESTIVE) HEART FAILURE (16) HTN (hypertension) Code(s): I10 - ESSENTIAL (PRIMARY) HYPERTENSION Assessment/Plan dizziness Coronary angiogram at [facility] Exploratory laparotomy for Peritonitis Hysterectomy Ongoing medical problems COPD Emphysema Moderately severe aortic regurgitation (2013 ECHO; normal LVEF; mild LVH; normal LV size; abnormal diastolic compliance) Rheumatoid Arthritis\ Plan Cardiac castellon stable cont present rx will need stress test when stable
[2017-09-20] MEDS: METOPROLOL SUCCINATE 25 MG TAB.SR.24H (FP) PO SCH (11:52)
--- NOTE | 2017-09-20 12:09 | CON.PULM ---
Consult Consult Specialty:: Pulmonology Reason for Consultation:: COPD - History of Present Illness Chief Complaint: Dizziness, Vomiting History of Present Illness: The patient is an 81 yo f w/ PMH COPD, HTN, CAD who comes into the ED c/o a 1 day history of dizziness, nausea and vomiting. Patient states that yesterday, she experienced a sudden onset of dizziness as well as nausea and several episodes of a small amount of NBNB vomiting. Patient had just finished her usual breakfast of coffee and cake and denies recent change in diet. Patient denies chest pain, shortness of breath, palpitations, fever, chills or sick contacts - History Source History Provided By: Patient Limitations to Obtaining History: No Limitations - Past Medical History Cardio/Vascular: Yes: CAD, HTN, [place] Pulmonary: Yes: Bronchitis, COPD - Alcohol/Substance Use Hx Alcohol Use: No - Smoking History Smoking history: Never smoked Have you smoked in the past 12 months: No Aproximately how many cigarettes per day: 10 If you are a former smoker, when did you quit?: 15years ago Home Medications - Allergies Allergies/Adverse Reactions: Allergies Allergy/AdvReac Type Severity Reaction Status Date / Time No Known Allergies Allergy Verified 02/13/17 22:16 - Home Medications Home Medications: Ambulatory Orders Albuterol Sulfate Inhaler - [Ventolin HFA Inhaler -] 1 - 2 inh IH TID PRN Estrogens,Conjugated [Premarin] 1.25 mg PO DAILY 11/16/12 Levothyroxine [Synthroid -] 25 mcg PO DAILY 11/16/12 Albuterol 2.5/Ipratropium 0.5 [Duoneb -] 1 neb NEB TID PRN 02/19/15 Aspirin [ASA -] 81 mg PO DAILY 02/19/15 Mirabegron [Myrbetriq] 25 mg PO DAILY 02/19/15 Acetaminophen [Tylenol .Regular Strength -] 325 mg PO ONCE PRN #0 tablet Aclidinium [place] [Tudorza -] 1 puff IH BID #1 inhaler 02/17/17 Miscellaneous Medical Supply [Outpatient Order] 1 each ASDIR #1 misc Alprazolam 0.5 mg PO HS 09/19/17 Metoprolol Succinate [Toprol Xl -] 25 mg PO DAILY 09/19/17 Ranitidine HCl [Zantac] 150 mg PO DAILY 09/19/17 Review of Systems - Review of Systems Constitutional: denies: Chills, Fever, Malaise, Weakness Cardiovascular: denies: Chest Pain, Edema, Palpitations, Shortness of Breath Respiratory: denies: Cough, SOB, Wheezing Gastrointestinal: reports: Nausea, Vomiting. denies: Abdominal Pain, Constipation, Diarrhea, Indigestion Neurological: reports: Dizziness. denies: Confusion, Headache Physical Exam Vital Sings: Vital Signs Temperature 97.7 F 09/20/17 12:05 Pulse Rate 73 09/20/17 12:05 Respiratory Rate 18 09/20/17 12:05 Blood Pressure 102/52 09/20/17 12:05 O2 Sat by Pulse Oximetry (%) 98 09/20/17 11:00 Constitutional: Yes: Well Nourished, No Distress, Calm HENT: Yes: Atraumatic, Normocephalic Neck: Yes: Supple, Trachea Midline Cardiovascular: Yes: Regular Rate and Rhythm, S1, S2. No: JVD, Gallop, Murmur, Rub, S3, S4 Respiratory: Yes: Regular, CTA Bilaterally ...Breath Sounds: ISA Clear, LLL Clear, RUL Clear, RML Clear, RLL Clear Gastrointestinal: Yes: Normal Bowel Sounds, Soft. No: Tenderness, Tenderness, Epigastrium, Tenderness, Rebound Labs: CBC, BMP 09/20/17 05:25 09/20/17 05:25 Assessment/Plan The patient is a 81 yo f w/ PMH COPD. HTN, CAD who comes into the ED c/o acute onset of dizziness, nausea and vomiting for the past 1 day. Patient states that her breathing is currently at baseline and denies SOB, chest pain or chest tightness. Patient afebrile and CXR shows no significant interval changes. #dizziness, nausea and vomiting -patient on meclizine trial -cardio workup underway #COPD- controlled -c/w Duonebs PRN, Spiriva -supplemental O2 as needed
--- NOTE | 2017-09-20 13:49 | PN ---
Teaching Attending Note Name of Resident: Ulises Jeffries ATTENDING PHYSICIAN STATEMENT I saw and evaluated the patient. I reviewed the resident's note and discussed the case with the resident. I agree with the resident's findings and plan as documented. SUBJECTIVE: 81 F, known to me from previous admissions. COPD, HTN, and CAD. Admitted via the ER due to 1 day history of dizziness, nausea, and vomiting. No travel history or sick contacts. No diarrhea or constipation. Breathing feels at baseline. Intake & Output 09/17/17 09/18/17 09/19/17 09/20/17 23:59 23:59 23:59 23:59 Intake Total 120 240 Balance 120 240 Weight 90 lb Last Vital Signs Temp Pulse Resp BP Pulse Ox 97.7 F 73 18 102/52 98 09/20/17 12:05 09/20/17 12:05 09/20/17 12:05 09/20/17 12:05 09/20/17 11:00 Active Medications Albuterol/Ipratropium (Duoneb -) 1 amp NEB Q8H PRN PRN Reason: SHORT OF BREATH/WHEEZING Last Admin: 09/19/17 22:34 Dose: 1 amp Alprazolam (Xanax -) 0.5 mg PO HS [place] Last Admin: 09/19/17 22:16 Dose: 0.5 mg Aspirin (Asa -) 81 mg PO DAILY [place] Last Admin: 09/20/17 09:56 Dose: 81 mg Levothyroxine Sodium (Synthroid -) 25 mcg PO DAILY [facility] Last Admin: 09/20/17 10:14 Dose: Not Given Meclizine HCl (Antivert -) 12.5 mg PO Q6H PRN PRN Reason: vertigo Last Admin: 09/20/17 10:10 Dose: 12.5 mg Metoprolol Succinate (Toprol Xl -) 25 mg PO DAILY [facility] Last Admin: 09/20/17 11:52 Dose: 25 mg Non-Formulary Medication (Mirabegron [Myrbetriq]) 25 mg PO DAILY [facility] Ondansetron HCl (Zofran Injection) 4 mg IVPB Q4H PRN PRN Reason: NAUSEA AND/OR VOMITING Ranitidine HCl (Zantac -) 150 mg PO DAILY [facility] Tiotropium [place] (Spiriva -) 1 puff IH DAILY [place] Last Admin: 09/20/17 09:57 Dose: Not Given Constitutional: Yes: Thin, NAD HENT: Yes: Atraumatic, Normocephalic Neck: Yes: Supple, Trachea Midline Cardiovascular: Yes: Regular Rate and Rhythm, S1, S2. No: JVD, Gallop, Murmur, Rub, S3, S4 Respiratory: Yes: Prolonged I:E ratio, diminished BS at the bases, no wheezing ...Breath Sounds: ISA Clear, LLL Clear, RUL Clear, RML Clear, RLL Clear Gastrointestinal: Yes: Normal Bowel Sounds, Soft. No: Tenderness, Tenderness, Epigastrium, Tenderness, Rebound Labs: Assessment/Plan (?) BPV (?) Viral illness COPD, not in AE HTN CAD BD [place] PRN Noted that she was placed on a trial of Meclizine O2 as needed Spiriva Daily Cardiology workup as ordered Will follow Dr Phan
--- NOTE | 2017-09-20 17:11 | CON.NEURO ---
Consult - History of Present Illness History of Present Illness: 81 year old female with a significant PMH of COPD (on home O2 prn), HTN, [place], CAD , and anxiety who presents to the emergency department with nausea and dizziness on 09/19/17- The patient reports waking up and feeling lightheaded and dizzy, shortly after which her nausea developed. She notes her dizziness is aggravated by movement and moving her head. She had few bouts of vomitting yesterday but has been better today--no SMITH, diplopia, no numbness face, no focal weakness, no H/L; no new RX. - History Source History Provided By: Patient - Past Medical History Cardio/Vascular: Yes: CAD, HTN, [place] Pulmonary: Yes: Bronchitis, COPD - Alcohol/Substance Use Hx Alcohol Use: No - Smoking History Smoking history: Never smoked Have you smoked in the past 12 months: No Aproximately how many cigarettes per day: 10 If you are a former smoker, when did you quit?: 15years ago Home Medications - Allergies Allergies/Adverse Reactions: Allergies Allergy/AdvReac Type Severity Reaction Status Date / Time No Known Allergies Allergy Verified 02/13/17 22:16 - Home Medications Home Medications: Ambulatory Orders Albuterol Sulfate Inhaler - [Ventolin HFA Inhaler -] 1 - 2 inh IH TID PRN Estrogens,Conjugated [Premarin] 1.25 mg PO DAILY 11/16/12 Levothyroxine [Synthroid -] 25 mcg PO DAILY 11/16/12 Albuterol 2.5/Ipratropium 0.5 [Duoneb -] 1 neb NEB TID PRN 02/19/15 Aspirin [ASA -] 81 mg PO DAILY 02/19/15 Mirabegron [Myrbetriq] 25 mg PO DAILY 02/19/15 Acetaminophen [Tylenol .Regular Strength -] 325 mg PO ONCE PRN #0 tablet Aclidinium [place] [Tudorza -] 1 puff IH BID #1 inhaler 02/17/17 Miscellaneous Medical Supply [Outpatient Order] 1 each ASDIR #1 misc Alprazolam 0.5 mg PO HS 09/19/17 Metoprolol Succinate [Toprol Xl -] 25 mg PO DAILY 09/19/17 Ranitidine HCl [Zantac] 150 mg PO DAILY 09/19/17 Physical Exam-Neuro Vital Signs: Vital Signs Temperature 97.8 F 09/20/17 14:00 Pulse Rate 78 09/20/17 14:00 Respiratory Rate 18 09/20/17 12:05 Blood Pressure 94/51 09/20/17 14:00 O2 Sat by Pulse Oximetry (%) 98 09/20/17 11:00 Constitutional: Yes: Well Nourished, No Distress Labs: CBC, BMP 09/20/17 05:25 09/20/17 05:25 - Neuro Exam Level Of Consciousness: Yes: Alert (Awake, alert, EOMI, no facila, motor 5/5, no ataxia, no ntsyagmus, reflexes : plantars dwn ) Problem List - Problems (1) Vertigo Code(s): R42 - DIZZINESS AND GIDDINESS Assessment/Plan 81 year old female with a significant PMH of COPD (on home O2 prn), HTN, [place], CAD with NV and vertigo x one day-suspect viral etiology vs GI enteritis--no evidence of stroke; doing better though BP low-- hydration; no MRI needed. neuro cleared. Dr Reeder
--- NOTE | 2017-09-20 18:14 | EKG ---
Test Reason : Blood Pressure : / mmHG Vent. Rate : 062 BPM Atrial Rate : 062 BPM P-R Int : 176 ms QRS Dur : 084 ms QT Int : 430 ms P-R-T Axes : 059 -44 054 degrees QTc Int : 436 ms NORMAL SINUS RHYTHM POSSIBLE LEFT ATRIAL ENLARGEMENT LEFT AXIS DEVIATION SEPTAL INFARCT (CITED ON OR BEFORE 06-FEB-2017) ABNORMAL ECG WHEN COMPARED WITH ECG OF 13-FEB-2017 22:13, VENT. RATE HAS DECREASED BY 35 BPM REPEAT EKG IF CLINICALLY INDICATED Confirmed by JESSICA SHAHID MD ([id number]) on 09/20/2017 6:14:31 PM Referred By: Confirmed By:JESSICA SHAHID MD
[2017-09-20] MEDS: ALBUTEROL SO4 2.5/IPRATROPIUM 0.5 INH SOL 3 ML VIAL.NEB. NEB PRN (18:50)
--- NOTE | 2017-09-20 20:16 | PN ---
Progress Note, Physician History of Present Illness: feeling good - Current Medication List Current Medications: Active Medications Albuterol/Ipratropium (Duoneb -) 1 amp NEB Q8H PRN PRN Reason: SHORT OF BREATH/WHEEZING Last Admin: 09/19/17 22:34 Dose: 1 amp Alprazolam (Xanax -) 0.5 mg PO HS [facility] Last Admin: 09/19/17 22:16 Dose: 0.5 mg Aspirin (Asa -) 81 mg PO DAILY [facility] Last Admin: 09/20/17 09:56 Dose: 81 mg Levothyroxine Sodium (Synthroid -) 25 mcg PO DAILY [facility] Last Admin: 09/20/17 10:14 Dose: Not Given Meclizine HCl (Antivert -) 12.5 mg PO Q6H PRN PRN Reason: vertigo Last Admin: 09/20/17 10:10 Dose: 12.5 mg Metoprolol Succinate (Toprol Xl -) 25 mg PO DAILY [facility] Last Admin: 09/20/17 11:52 Dose: 25 mg Non-Formulary Medication (Mirabegron [Myrbetriq]) 25 mg PO DAILY [facility] Ondansetron HCl (Zofran Injection) 4 mg IVPB Q4H PRN PRN Reason: NAUSEA AND/OR VOMITING Ranitidine HCl (Zantac -) 150 mg PO DAILY [facility] Last Admin: 09/20/17 17:11 Dose: 150 mg Tiotropium [place] (Spiriva -) 1 puff IH DAILY [facility] Last Admin: 09/20/17 09:57 Dose: Not Given - Objective Vital Signs: Vital Signs Temperature 98.4 F 09/20/17 18:00 Pulse Rate 72 09/20/17 18:00 Respiratory Rate 20 09/20/17 18:00 Blood Pressure 94/51 09/20/17 18:00 O2 Sat by Pulse Oximetry (%) 98 09/20/17 20:09 Constitutional: Yes: No Distress HENT: Yes: Atraumatic Neck: Yes: Supple Cardiovascular: Yes: Regular Rate and Rhythm Respiratory: Yes: CTA Bilaterally Gastrointestinal: Yes: Normal Bowel Sounds Extremities: Yes: WNL Neurological: Yes: Alert, Oriented Labs: CBC, BMP 09/20/17 05:25 09/20/17 05:25 Problem List - Problems (1) Vertigo Assessment/Plan: will try meclizine feeling good Code(s): R42 - DIZZINESS AND GIDDINESS (2) COPD exacerbation Assessment/Plan: stable Code(s): J44.1 - CHRONIC OBSTRUCTIVE PULMONARY DISEASE W (ACUTE) EXACERBATION (3) Hyperlipidemia Assessment/Plan: on meds stable Code(s): E78.5 - HYPERLIPIDEMIA, UNSPECIFIED (4) Hypothyroidism Assessment/Plan: on meds stable Code(s): E03.9 - HYPOTHYROIDISM, UNSPECIFIED (5) HTN (hypertension) Assessment/Plan: stable on meds Code(s): I10 - ESSENTIAL (PRIMARY) HYPERTENSION
[2017-09-20] MEDS: ALPRAZolam 0.25 MG TABLET PO SCH (21:51)
[2017-09-21] MEDS ORDERED: LEVOTHYROXINE NA 25 MCG TABLET (FP) PO SCH (07:00)
[2017-09-21] MEDS ORDERED: PT OWN MED DRAWER 7, Y5N ONE (09:00)
[2017-09-21] MEDS: ALBUTEROL SO4 2.5/IPRATROPIUM 0.5 INH SOL 3 ML VIAL.NEB. NEB PRN ×2 (09:30→13:36)
[2017-09-21] MEDS: METOPROLOL SUCCINATE 25 MG TAB.SR.24H (FP) PO SCH (10:01)
[2017-09-21] MEDS: MECLIZINE HCL 12.5 MG TABLET PO PRN (10:01)
[2017-09-21] MEDS: RANITIDINE HCL 150 MG TABLET (FP) PO SCH (10:01)
[2017-09-21] MEDS: TIOTROPIUM BROMIDE 18 MCG/INH (DEVICE W/ 5 CAPSULES) IH SCH (10:01)
[2017-09-21] MEDS: ASPIRIN 81 MG CHEWABLE TABLETS PO SCH (10:01)
[2017-09-21 10:47] VITALS: BP 113/72; PULSE 72; TEMP 98.4
--- NOTE | 2017-09-21 11:01 | PN ---
Progress Note, Physician History of Present Illness: 81 year old female with a significant PMH of COPD (on home O2 prn), HTN, [place], CAD , and anxiety who presents to the emergency department with nausea and dizziness beginning approximately 2 hours ago. The patient reports waking up this morning and feeling lightheaded and dizzy, shortly after which her nausea developed. She notes her dizziness is aggravated by movement and moving her head. The patient reports dry vomiting intermittently for the past two hours with occasional saliva-based sputum, and coughing. PMH Coronary angiogram at [facility] Exploratory laparotomy for Peritonitis Hysterectomy Ongoing medical problems COPD Emphysema Moderately severe aortic regurgitation (2013 ECHO; normal LVEF; mild LVH; normal LV size; abnormal diastolic compliance) Rheumatoid Arthritis - Current Medication List Current Medications: Active Medications Albuterol/Ipratropium (Duoneb -) 1 amp NEB Q8H PRN PRN Reason: SHORT OF BREATH/WHEEZING Last Admin: 09/20/17 18:50 Dose: 1 amp Alprazolam (Xanax -) 0.5 mg PO HS [facility] Last Admin: 09/20/17 21:51 Dose: 0.5 mg Aspirin (Asa -) 81 mg PO DAILY [facility] Last Admin: 09/21/17 10:01 Dose: 81 mg Levothyroxine Sodium (Synthroid -) 25 mcg PO DAILY@0700 [facility] Last Admin: 09/21/17 06:21 Dose: 25 mcg Meclizine HCl (Antivert -) 12.5 mg PO Q6H PRN PRN Reason: vertigo Last Admin: 09/20/17 10:10 Dose: 12.5 mg Metoprolol Succinate (Toprol Xl -) 25 mg PO DAILY [facility] Last Admin: 09/21/17 10:01 Dose: 25 mg Non-Formulary Medication (Mirabegron [Myrbetriq]) 25 mg PO DAILY [facility] Ondansetron HCl (Zofran Injection) 4 mg IVPB Q4H PRN PRN Reason: NAUSEA AND/OR VOMITING Ranitidine HCl (Zantac -) 150 mg PO DAILY [facility] Last Admin: 09/21/17 10:01 Dose: Not Given Tiotropium [place] (Spiriva -) 1 puff IH DAILY [facility] Last Admin: 09/21/17 10:01 Dose: Not Given - Objective Vital Signs: Vital Signs Temperature 98.4 F 09/21/17 10:00 Pulse Rate 72 09/21/17 10:00 Respiratory Rate 20 09/21/17 10:00 Blood Pressure 113/72 09/21/17 10:00 O2 Sat by Pulse Oximetry (%) 98 09/21/17 10:48 Eyes: Yes: WNL, Conjunctiva Clear, EOM Intact HENT: Yes: WNL, Atraumatic, Normocephalic Neck: Yes: WNL, Supple, Trachea Midline Cardiovascular: Yes: WNL, Regular Rate and Rhythm Respiratory: Yes: Diminished Gastrointestinal: Yes: WNL, Normal Bowel Sounds Genitourinary: Yes: WNL Musculoskeletal: Yes: WNL Extremities: Yes: WNL Edema: No Integumentary: Yes: WNL Neurological: Yes: WNL, Alert, Oriented ...Motor Strength: WNL Psychiatric: Yes: WNL Labs: CBC, BMP 09/20/17 05:25 09/20/17 05:25 Problem List - Problems (1) Vertigo Code(s): R42 - DIZZINESS AND GIDDINESS (2) Aortic regurgitation Code(s): I35.1 - NONRHEUMATIC AORTIC (VALVE) INSUFFICIENCY (3) COPD exacerbation Code(s): J44.1 - CHRONIC OBSTRUCTIVE PULMONARY DISEASE W (ACUTE) EXACERBATION (4) Cervical radiculopathy Code(s): M54.12 - RADICULOPATHY, CERVICAL REGION (5) Hyperlipidemia Code(s): E78.5 - HYPERLIPIDEMIA, UNSPECIFIED (6) Hypothyroidism Code(s): E03.9 - HYPOTHYROIDISM, UNSPECIFIED (7) Leukocytosis Code(s): D72.829 - ELEVATED WHITE BLOOD CELL COUNT, UNSPECIFIED (8) Lung nodule Code(s): R91.1 - SOLITARY PULMONARY NODULE (9) Nasal congestion Code(s): R09.81 - NASAL CONGESTION (10) Overactive bladder Code(s): N32.81 - OVERACTIVE BLADDER (11) Shortness of breath Code(s): R06.02 - SHORTNESS OF BREATH (12) Shoulder pain, right Code(s): M25.511 - PAIN IN RIGHT SHOULDER Qualifiers: Chronicity: acute Qualified Code(s): M25.511 - Pain in right shoulder (13) Coronary artery disease Code(s): I25.10 - ATHSCL HEART DISEASE OF [place] CORONARY ARTERY W/O ANG PCTRS (14) Cough Code(s): R05 - COUGH (15) Diastolic CHF Code(s): I50.30 - UNSPECIFIED DIASTOLIC (CONGESTIVE) HEART FAILURE (16) HTN (hypertension) Code(s): I10 - ESSENTIAL (PRIMARY) HYPERTENSION Assessment/Plan dizziness Coronary angiogram at [facility] Exploratory laparotomy for Peritonitis Hysterectomy Ongoing medical problems COPD Emphysema Moderately severe aortic regurgitation (2013 ECHO; normal LVEF; mild LVH; normal LV size; abnormal diastolic compliance) Rheumatoid Arthritis\ Plan Cardiac castellon stable cont present rx will need stress test when stable - may be done as the outpatient d/c telemetry
--- NOTE | 2017-09-21 11:16 | PN ---
Progress Note, Physician History of Present Illness: PULMONARY ALERT,NAD,-SOB,-DIZZINESS. NEURO CONSULT NOTED - Current Medication List Current Medications: Active Medications Albuterol/Ipratropium (Duoneb -) 1 amp NEB Q8H PRN PRN Reason: SHORT OF BREATH/WHEEZING Last Admin: 09/20/17 18:50 Dose: 1 amp Alprazolam (Xanax -) 0.5 mg PO HS [facility] Last Admin: 09/20/17 21:51 Dose: 0.5 mg Aspirin (Asa -) 81 mg PO DAILY [facility] Last Admin: 09/21/17 10:01 Dose: 81 mg Levothyroxine Sodium (Synthroid -) 25 mcg PO DAILY@0700 [facility] Last Admin: 09/21/17 06:21 Dose: 25 mcg Meclizine HCl (Antivert -) 12.5 mg PO Q6H PRN PRN Reason: vertigo Last Admin: 09/20/17 10:10 Dose: 12.5 mg Metoprolol Succinate (Toprol Xl -) 25 mg PO DAILY [facility] Last Admin: 09/21/17 10:01 Dose: 25 mg Non-Formulary Medication (Mirabegron [Myrbetriq]) 25 mg PO DAILY [facility] Ondansetron HCl (Zofran Injection) 4 mg IVPB Q4H PRN PRN Reason: NAUSEA AND/OR VOMITING Ranitidine HCl (Zantac -) 150 mg PO DAILY [facility] Last Admin: 09/21/17 10:01 Dose: Not Given Tiotropium [place] (Spiriva -) 1 puff IH DAILY [facility] Last Admin: 09/21/17 10:01 Dose: Not Given - Objective Vital Signs: Vital Signs Temperature 98.4 F 09/21/17 10:00 Pulse Rate 72 09/21/17 10:00 Respiratory Rate 20 09/21/17 10:00 Blood Pressure 113/72 09/21/17 10:00 O2 Sat by Pulse Oximetry (%) 98 09/21/17 10:48 Constitutional: Yes: Well Nourished, Calm Eyes: Yes: WNL HENT: Yes: WNL Neck: Yes: WNL Cardiovascular: Yes: Regular Rate and Rhythm, S1, S2 Respiratory: Yes: Diminished Gastrointestinal: Yes: Normal Bowel Sounds, Soft Extremities: Yes: WNL Edema: No Labs: Problem List - Problems (1) Vertigo Code(s): R42 - DIZZINESS AND GIDDINESS (2) Aortic regurgitation Code(s): I35.1 - NONRHEUMATIC AORTIC (VALVE) INSUFFICIENCY (3) Hyperlipidemia Code(s): E78.5 - HYPERLIPIDEMIA, UNSPECIFIED (4) Hypothyroidism Code(s): E03.9 - HYPOTHYROIDISM, UNSPECIFIED (5) Diastolic CHF Code(s): I50.30 - UNSPECIFIED DIASTOLIC (CONGESTIVE) HEART FAILURE (6) HTN (hypertension) Code(s): I10 - ESSENTIAL (PRIMARY) HYPERTENSION (7) COPD (chronic obstructive pulmonary disease) Code(s): J44.9 - CHRONIC OBSTRUCTIVE PULMONARY DISEASE, UNSPECIFIED Assessment/Plan Assessment/Plan (?)BPV (?) Viral illness COPD, not in AE HTN CAD BD TX PRN Meclizine O2 as needed Spiriva Daily DR STANTON
--- NOTE | 2017-09-21 18:30 | DS ---
Physical Examination Vital Signs: Vital Signs Temperature 98.4 F 09/21/17 10:00 Pulse Rate 72 09/21/17 10:00 Respiratory Rate 20 09/21/17 10:00 Blood Pressure 113/72 09/21/17 10:00 O2 Sat by Pulse Oximetry (%) 98 09/21/17 10:48 Labs: CBC, BMP 09/20/17 05:25 09/20/17 05:25 Discharge Summary Reason For Visit: VERTIGO Condition: Good - Instructions Diet, Activity, Other Instructions: take meclizine as needed for vertigo Referrals: Elliot Mccrary MD [Primary Care Provider] - Disposition: HOME - Home Medications Comprehensive Discharge Medication List: Ambulatory Orders Albuterol Sulfate Inhaler - [Ventolin HFA Inhaler -] 1 - 2 inh IH TID PRN Estrogens,Conjugated [Premarin] 1.25 mg PO DAILY 11/16/12 Levothyroxine [Synthroid -] 25 mcg PO DAILY 11/16/12 Albuterol 2.5/Ipratropium 0.5 [Duoneb -] 1 neb NEB TID PRN 02/19/15 Aspirin [ASA -] 81 mg PO DAILY 02/19/15 Mirabegron [Myrbetriq] 25 mg PO DAILY 02/19/15 Acetaminophen [Tylenol .Regular Strength -] 325 mg PO ONCE PRN #0 tablet Aclidinium [place] [Tudorza -] 1 puff IH BID #1 inhaler 02/17/17 Miscellaneous Medical Supply [Outpatient Order] 1 each ASDIR #1 misc Alprazolam 0.5 mg PO HS 09/19/17 Metoprolol Succinate [Toprol XL -] 25 mg PO DAILY 09/19/17 Ranitidine HCl [Zantac] 150 mg PO DAILY 09/19/17 Meclizine HCl [Antivert -] 12.5 mg PO Q6H PRN #14 tablet 09/20/17 [facility] home
== END 2017-09-21 14:16 | disposition home or self-care (01) ==
LOC: JER 14:19 → JERBED 17:31 → J4W 21:15
PROVIDERS: ADMIT Internal Medicine; ATTEND Internal Medicine
PROC: 3E0F7GC Introduction of Other Therapeutic Substance into Respiratory Tract, Via Natural or Artificial Opening (ICD-10-PCS; principal; 2017-09-19)
PROC: 3E0234Z Introduction of Serum, Toxoid and Vaccine into Muscle, Percutaneous Approach (ICD-10-PCS; 2017-09-19)
DX: R42 Dizziness and giddiness (principal); I10 Essential (primary) hypertension; I25.2 Old myocardial infarction; I25.10 Atherosclerotic heart disease of native coronary artery without angina pectoris; I35.1 Nonrheumatic aortic (valve) insufficiency; I50.30 Unspecified diastolic (congestive) heart failure; J44.1 Chronic obstructive pulmonary disease with (acute) exacerbation; E78.5 Hyperlipidemia, unspecified; E03.9 Hypothyroidism, unspecified; F41.9 Anxiety disorder, unspecified; D72.829 Elevated white blood cell count, unspecified; N32.81 Overactive bladder; R91.1 Solitary pulmonary nodule; R05 Cough; R06.02 Shortness of breath; M25.511 Pain in right shoulder; M54.12 Radiculopathy, cervical region; Z85.42 Personal history of malignant neoplasm of other parts of uterus; Z90.49 Acquired absence of other specified parts of digestive tract; Z99.81 Dependence on supplemental oxygen; Z79.82 Long term (current) use of aspirin; R09.81 Nasal congestion; Z23 Encounter for immunization
CPT/HCPCS: 36415; 71010-TC; 80053; 81003; 82550; 84484; 85025; 90688; 93005; 93010; 94640; 99285-25; G0008; G0378

== ENCOUNTER 2019-10-29 13:04 | Inpatient (IN) | payer OTHER ==
--- NOTE | 2019-10-29 13:13 | PDOC ---
Rapid Medical Evaluation Time Seen by Provider: 10/29/19 13:10 Medical Evaluation: Allergies Allergy/AdvReac Type Severity Reaction Status Date / Time No Known Allergies Allergy Verified 02/13/17 22:16 10/29/19 13:10 CC: Productive cough x3 days PE: Hoarse voice. Breath sounds diminished on left side. Orders: cxr, labs Patient will proceed to ED for further evaluation. Discharge Disposition - Diagnosis Cough - Referrals - Patient Instructions - Post Discharge Activity
--- NOTE | 2019-10-29 13:26 | PDOC ---
History of Present Illness - General Chief Complaint: Shortness of Breath Stated Complaint: SOB/ COPD Time Seen by Provider: 10/29/19 13:10 - History of Present Illness Initial Comments: HPI: 83yo F with PMH of COPD (on 2.5L oxygen at home PRN), HTN, [place], CAD, Anxiety presenting with shortness of breath. Patient states she has been feeling this since Tuesday and she has had a cough productive of green sputum since that time as well. She uses albuterol treatments when she feels she needs them and has used them today. Was last on antibiotics and steroids about a year ago. Denies chest pain. No hemoptysis, no recent surgical history, no recent immobilization, no history of DVT or PE. Is on premarin hormone. Is unsure about sick contacts but believes she has gotten other family members sick. No fevers or chills. PCP: Dr. Villarreal ROS: Constitutional: no fever, no chills HEENT: no throat pain, no dysphagia Cardiovascular: no chest pain, no palpitations Respiratory: +cough, +shortness of breath Gastrointestinal: no abdominal pain, no nausea Genitourinary: no dysuria, no hematuria Musculoskeletal: no myalgia, no arthralgia Skin: no rash, no itching Neurologic: no headache, no weakness PE: General: Awake, alert, and fully oriented, in no acute distress Head: No signs of trauma Eyes: EOMI, sclera anicteric ENT: Moist mucus membranes Neck: Normal ROM, supple Lungs: Crackles present at the right lung base Cardio: Regular rhythm, S1 and S2 present Abdomen: Soft, nontender Extremities: Normal range of motion, Distal pulses present SKIN: Warm, Dry, normal turgor Neurologic: Cranial nerves II through XII grossly intact. Normal speech ED Course/MDM: DDX including but not limited to COPD exacerbation, ACS, PE, PNA, anemia, metabolic derangement Labs, CXR, EKG Dukellybs Solu-medrol 10/29/19 13:26 EKG: rate 67, QTc 414, NSR 10/29/19 14:10 CBC WBC 12.4 K/mm3 (4.0-10.0) H 10/29/19 13:50 RBC 3.87 M/mm3 (3.60-5.2) 10/29/19 13:50 Hgb 11.3 GM/dL (10.7-15.3) 10/29/19 13:50 Hct 34.0 % (32.4-45.2) 10/29/19 13:50 MCV 87.8 fl (80-96) 10/29/19 13:50 MCH 29.1 pg (25.7-33.7) 10/29/19 13:50 MCHC 33.1 g/dl (32.0-36.0) 10/29/19 13:50 RDW 13.9 % (11.6-15.6) 10/29/19 13:50 Plt Count 243 K/MM3 (134-434) 10/29/19 13:50 MPV 8.7 fl (7.5-11.1) 10/29/19 13:50 Absolute Neuts (auto) 10.0 K/mm3 (1.5-8.0) H 10/29/19 13:50 Neutrophils % 81.0 % (42.8-82.8) D 10/29/19 13:50 Lymphocytes % 11.6 % (8-40) D 10/29/19 13:50 Monocytes % 6.5 % (3.8-10.2) 10/29/19 13:50 Eosinophils % 0.6 % (0-4.5) 10/29/19 13:50 Basophils % 0.3 % (0-2.0) 10/29/19 13:50 Nucleated RBC % 0 % (0-0) 10/29/19 13:50 Mild leukocytosis CMP Sodium 138 mmol/L (136-145) 10/29/19 13:50 Potassium 4.0 mmol/L (3.5-5.1) 10/29/19 13:50 Chloride 101 mmol/L (98-107) 10/29/19 13:50 Carbon Dioxide 32 mmol/L (21-32) 10/29/19 13:50 Anion Gap 5 MMOL/L (8-16) L 10/29/19 13:50 BUN 23.0 mg/dL (7-18) H 10/29/19 13:50 Creatinine 1.2 mg/dL (0.55-1.3) 10/29/19 13:50 Est GFR (CKD-EPI)AfAm 47.72 10/29/19 13:50 Est GFR (CKD-EPI)NonAf 41.18 10/29/19 13:50 Random Glucose 77 mg/dL (74-106) 10/29/19 13:50 Calcium 9.1 mg/dL (8.5-10.1) 10/29/19 13:50 Total Bilirubin 0.7 mg/dL (0.2-1) 10/29/19 13:50 AST 17 U/L (15-37) 10/29/19 13:50 ALT 14 U/L (13-61) 10/29/19 13:50 Alkaline Phosphatase 79 U/L (45-117) 10/29/19 13:50 Total Protein 7.0 g/dl (6.4-8.2) 10/29/19 13:50 Albumin 3.5 g/dl (3.4-5.0) 10/29/19 13:50 Ekectrolytes unremarkable No transaminitis Normal Cr CXR without acute pathology, my impression Plan to admit for COPD exacerbation Azithromycin ordered Admission is indicated for patient as she has prolonged, progressively worsening symptoms before emergency department visit Call to Dr. Bravo/[facility]'s service [phone]; awaiting callback 10/29/19 16:31 Microblog sent to [employer] team 10/29/19 16:[address] Garcia who accepted patient for admission under Dr. Galloway 10/29/19 17:47 CXR as read by radiology: "EXAM#: TYPE/EXAM: RESULT: [id number] RAD/CHEST PA LAT Chest: Abnormal breath sounds. Shortness of breath. 3 views of the chest have been submitted. Since 12/15/2017, the lungs remain clear. There is no sign of infiltrate or failure. Since sclerotic knob, normal hilar normal heart. The angles are sharp. The soft tissues are intact. There is a vague focal area of increased density-small nodule by the anterior aspect of the right first rib. This was seen on CT on 10/21/2017. Bones and soft tissues are intact. Correlation recommended. Impression : No acute chest pathology. Small right upper lobe nodule seen on CT in 2017. Reported By: Benjamin Weems MD 10/29/19 [id number] " Past History - Past Medical History Allergies/Adverse Reactions: Allergies Allergy/AdvReac Type Severity Reaction Status Date / Time No Known Allergies Allergy Verified 10/29/19 13:13 Home Medications: Ambulatory Orders Albuterol Sulfate Inhaler - [Ventolin HFA Inhaler -] 1 - 2 inh IH TID PRN Estrogens,Conjugated [Premarin] 1.25 mg PO DAILY 11/16/12 Levothyroxine [Synthroid -] 25 mcg PO DAILY 11/16/12 Albuterol 2.5/Ipratropium 0.5 [Duoneb -] 1 neb NEB TID PRN 02/19/15 Mirabegron [Myrbetriq] 25 mg PO DAILY 02/19/15 Alprazolam 0.5 mg PO TID PRN 09/19/17 Metoprolol Succinate [Toprol XL -] 25 mg PO DAILY 09/19/17 Meclizine HCl [Antivert -] 12.5 mg PO Q6H PRN #14 tablet 09/20/17 Aspirin [Aspirin EC] 81 mg PO DAILY 10/29/19 Chlorthalidone 25 mg PO DAILY 10/29/19 Anemia: No Asthma: No Cancer: Yes (UTERINE) Cardiac Disorders: Yes (2 DC'S) CVA: No COPD: Yes CHF: No Dementia: No Diabetes: No GI Disorders: No Disorders: No HTN: Yes Hypercholesterolemia: No Liver Disease: No Seizures: No Thyroid Disease: Yes - Surgical History Abdominal Surgery: Yes (BLOCKAGE) Cardiac Surgery: No Cholecystectomy: Yes Lung Surgery: No Neurologic Surgery: No Orthopedic Surgery: No - Immunization History Immunization Up to Date: Yes - Psycho Social/Smoking Cessation Hx Smoking Status: Yes Smoking History: Former smoker Have you smoked in the past 12 months: No Number of Cigarettes Smoked Daily: 10 If you are a former smoker, when did you quit?: 5 years ago Information on smoking cessation initiated: No 'Breaking Loose' booklet given: 11/20/12 Hx Alcohol Use: No Drug/Substance Use Hx: No Substance Use Type: None Hx Substance Use Treatment: No *Physical Exam - Vital Signs Last Vital Signs Temp Pulse Resp BP Pulse Ox 97.7 F 93 H 18 123/36 L 96 10/29/19 13:09 10/29/19 13:09 10/29/19 13:09 10/29/19 13:09 10/29/19 13:09 ED Treatment Course - LABORATORY CBC & Chemistry Diagram: 10/29/19 13:50 10/29/19 13:50 Discharge - Discharge Information Problems reviewed: Yes Clinical Impression/Diagnosis: Cough, COPD exacerbation Condition: Guarded - Admission Yes - Follow up/Referral - Patient Discharge Instructions - Post Discharge Activity
--- NOTE | 2019-10-29 13:30 | PDOC ---
Attending Attestation - Resident Resident Name: Rita Soria - ED Attending Attestation I have performed the following: I have examined & evaluated the patient, The case was reviewed & discussed with the resident, I agree w/resident's findings & plan, Exceptions are as noted - HPI HPI: 10/29/19 17:15 83yo F with PMH of COPD (on 2.5L oxygen at home PRN), HTN, [place], CAD, Anxiety presenting with shortness of breath. Patient states she has been feeling this since Tuesday and she has had a cough productive of green sputum since that time as well. - Physicial Exam PE: 10/29/19 17:15 Vitals: Triage Vital signs reviewed General Appearance: No acute distress, well nourished well developed, Head: Atraumatic, Cardiac: Regular rate and rhythym, no murmurs, no rubs, no gallops, Lungs: Wheezing bilaterally Abdomen: Soft, non distended, normal bowel sounds, non tender to palpation Extremities: Full range of motion to all extremities, no cyanosis, clubbing, or edema Skin: Warm and dry, no rashes or lesions, no rash, no petechiae Psych: Normal mood, normal affect 10/29/19 17:52 - Medical Decision Making 10/29/19 17:56 No acute infiltrate on chest x-ray History and examination consistent with COPD exacerbation Despite multiple rounds of steroids and nebulized treatment patient still hypoxic requiring supplemental oxygen We will admit to medicine for further management.
[2019-10-29] MEDS ORDERED: methylPREDNISolone NA SUCC 125 MG/2 ML VIAL IVPUSH ONE (13:58)
[2019-10-29] MEDS ORDERED: ALBUTEROL SO4 2.5/IPRATROPIUM 0.5 INH SOL 3 ML VIAL.NEB. NEB ONE ×2 (13:58→14:36)
[2019-10-29 14:35] LABS: BASO % 0.3 % (0-2.0); EOS % 0.6 % (0-4.5); HEMOGLOBIN 11.3 GM/dL (10.7-15.3); LYMPH % 11.6 % (8-40); MCH 29.1 pg (25.7-33.7); MCHC 33.1 g/dl (32.0-36.0); MEAN CELL VOLUME 87.8 fl (80-96); MEAN PLT VOLUME 8.7 fl (7.5-11.1); MONO % 6.5 % (3.8-10.2); PLATELET COUNT 243 K/MM3 (134-434); RBC 3.87 M/mm3 (3.60-5.2); RDW 13.9 % (11.6-15.6); WHITE BLOOD COUNT 12.4 K/mm3 (4.0-10.0)
[2019-10-29] MEDS ORDERED: methylPREDNISolone NA SUCC 125 MG/2 ML VIAL ONE (14:36)
[2019-10-29 14:47] LABS: ALBUMIN 3.5 g/dl (3.4-5.0); ALK PHOS 79 U/L (45-117); ANION GAP 5 MMOL/L (8-16); BILIRUBIN,TOTAL 0.7 mg/dL (0.2-1); CALCIUM 9.1 mg/dL (8.5-10.1); CHLORIDE 101 mmol/L (98-107); CO2 32 mmol/L (21-32); CREATININE 1.2 mg/dL (0.55-1.3); GLUCOSE,RANDOM 77 mg/dL (74-106); SGOT/AST 17 U/L (15-37); SGPT/ALT 14 U/L (13-61); SODIUM 138 mmol/L (136-145)
[2019-10-29] MEDS ORDERED: AZITHROMYCIN IVPB 500 MG in DEXTROSE 5%-WATER - 250 ML IVPB ONE (16:22)
[2019-10-29] MEDS ORDERED: AZITHROMYCIN IVPB 500 MG/250 ML BAG IVPB ONE (18:07)
[2019-10-29] MEDS ORDERED: ALBUTEROL SO4 0.083% IH SOL 2.5 MG/3 ML VIAL.NEB. NEB PRN (18:36)
--- NOTE | 2019-10-29 18:39 | HP ---
CHIEF COMPLAINT: shortness of breath PCP: Dr. Mccrary HISTORY OF PRESENT ILLNESS: Ms. Orantes is an 83y/o female with COPD (intermittent use of home O2), diastolic CHF, HTN, CAD, IA, hypothyroidism, and cervical cancer s/p hysterectomy who presents with increased shortness of breath and cough with greenish productive sputum x 2 days. She reports rhinorrhea about a week ago that quickly resolved. Two days ago she felt chest tightness and cough with increased sputum production, and she was less tolerant of exercise. She has been using her albuterol inhaler more frequently as well. She denies fever, chills, sinus congestion, ear pain, sore throat, wheezing, nausea, or vomiting. She has mild intermittent dizziness x 2 weeks but attributes it to vertigo. She reports her son has been sick with URI recently. She reports last abx and steroid use was last year. ER course was notable for: (1) azithromycin, solu-medrol, duo-nebs (2) EKG no acute ST changes, QTc 414 PAST MEDICAL HISTORY: COPD (intermittent use of home O2), diastolic CHF, HTN, CAD, IA, hypothyroidism PAST SURGICAL HISTORY: hysterectomy cholecystectomy intestinal blockage 2/2 adhesions from hyst Social History: Smokin/2ppd for 20 years, quit 12 years ago Alcohol: denies Lives alone, spouse 2-3 months ago and is about to move in with family Allergies No Known Allergies Allergy (Verified 10/29/19 13:13) HOME MEDICATIONS: Home Medications Medication Instructions Recorded Albuterol Sulfate Inhaler - 1 - 2 inh IH TID PRN 11/16/12 [Ventolin HFA Inhaler -] Estrogens,Conjugated [Premarin] 1.25 mg PO DAILY 11/16/12 Levothyroxine [Synthroid -] 25 mcg PO DAILY 11/16/12 Albuterol 2.5/Ipratropium 0.5 1 neb NEB TID PRN 02/19/15 [Duoneb -] Mirabegron [Myrbetriq] 25 mg PO DAILY 02/19/15 Alprazolam 0.5 mg PO TID PRN 09/19/17 Metoprolol Succinate [Toprol XL -] 25 mg PO DAILY 09/19/17 Meclizine HCl [Antivert -] 12.5 mg PO Q6H PRN #14 tablet 09/20/17 Aspirin [Aspirin EC] 81 mg PO DAILY 10/29/19 Chlorthalidone 25 mg PO DAILY 10/29/19 REVIEW OF SYSTEMS see HPI PHYSICAL EXAMINATION Vital Signs - 24 hr 10/29/19 10/29/19 13:09 13:30 Temperature 97.7 F Pulse Rate 93 H 68 Respiratory 18 Rate Blood Pressure 123/36 L O2 Sat by Pulse 96 93 L Oximetry (%) GENERAL: Awake, alert, and fully oriented, in no acute distress. On 2L NC. HEAD: Normal with no signs of trauma. EYES: Pupils equal, round and reactive to light, extraocular movements intact, sclera anicteric, conjunctiva clear. EARS, NOSE, THROAT: Ears normal, nares patent, oropharynx slightly erythematous with post-nasal drainage. Moist mucous membranes. NECK: Normal range of motion, supple with right submandibular lymphadenopathy, no JVD LUNGS: Clear to auscultation bilaterally. No wheezes. Good air entry. HEART: Regular rate and rhythm, 3/6 systolic murmur best heard LUSB ABDOMEN: Soft, nontender, not distended, normoactive bowel sounds MUSCULOSKELETAL: Normal range of motion at all joints. No bony deformities or tenderness. UPPER EXTREMITIES: Warm, well-perfused. No cyanosis. No peripheral edema. LOWER EXTREMITIES: Warm, well-perfused. No peripheral edema. NEUROLOGICAL: Cranial nerves II-XII intact. Normal speech. Normal gait. PSYCHIATRIC: Cooperative. Good eye contact. Appropriate mood and affect. SKIN: Warm, dry, normal turgor, ecchymosis lower extremities Laboratory Results - last 24 hr 10/29/19 10/29/19 10/29/19 13:50 13:50 15:29 WBC 12.4 H RBC 3.87 Hgb 11.3 Hct 34.0 MCV 87.8 MCH 29.1 MCHC 33.1 RDW 13.9 Plt Count 243 MPV 8.7 Absolute Neuts (auto) 10.0 H Neutrophils % 81.0 D Lymphocytes % 11.6 D Monocytes % 6.5 Eosinophils % 0.6 Basophils % 0.3 Nucleated RBC % 0 Sodium 138 Potassium 4.0 Chloride 101 Carbon Dioxide 32 Anion Gap 5 L BUN 23.0 H Creatinine 1.2 Est GFR (CKD-EPI)AfAm 47.72 Est GFR (CKD-EPI)NonAf 41.18 Random Glucose 77 Calcium 9.1 Total Bilirubin 0.7 AST 17 ALT 14 Alkaline Phosphatase 79 Total Protein 7.0 Albumin 3.5 Influenza A (Rapid) Negative Influenza B (Rapid) Negative CXR- RUL nodule seen on CT in 2018, no infiltrates EKG- flattened V1, V2, AVL which is present on prior EKG, LAD, NSR, QTc 414 ASSESSMENT/PLAN: Ms. Orantes is an 83y/o female COPD (intermittent use of home O2), diastolic CHF , HTN, CAD, IA, hypothyroidism, and cervical cancer s/p hysterectomy who presents with increased shortness of breath and productive cough x 2 days. #shortness of breath, most likely COPD exacerbation vs less likely cardiac -increased sputum production and shortness of breath in the last 2 days -duo-nebs QID scheduled -albuterol Q6H PRN shortness of breath/wheezing -Symbicort 2 puffs IH BID -solu-medrol 40mg IV daily -azithromycin 250mg daily x 2 days -troponin -O2 #leukocytosis, possibly from URI -monitor -UA -blood cx pending #diastolic CHF -metoprolol #hypothyroidism -Synthroid #CAD -ASA #HTN -chlorthalidone #hx cervical cancer -Premarin #anxiety -alprazolam PRN #vertigo -meclizine PRN DVT Ppx lovenox 30mg daily FEN PO fluids monitor labs regular diet dispo med/surg Visit type - Emergency Visit Emergency Visit: Yes Care time: The patient presented to the Emergency Department on the above date and was hospitalized for further evaluation of their emergent condition. - New Patient This patient is new to me today: Yes Date on this admission: 10/29/19 - Critical Care Critical Care patient: No ATTENDING PHYSICIAN STATEMENT I saw and evaluated the patient. I reviewed the resident's note and discussed the case with the resident. I agree with the resident's findings and plan as documented. SUBJECTIVE: OBJECTIVE: ASSESSMENT AND PLAN:
[2019-10-29] MEDS ORDERED: ALPRAZolam 0.25 MG TABLET PO PRN ×2 (18:56→19:07)
[2019-10-29] MEDS ORDERED: MECLIZINE HCL 12.5 MG TABLET PO PRN (18:56)
--- NOTE | 2019-10-29 18:57 | PN ---
Teaching Attending Note Name of Resident: Geetha Del Rio ATTENDING PHYSICIAN STATEMENT I saw and evaluated the patient. I reviewed the resident's note and discussed the case with the resident. I agree with the resident's findings and plan as documented. SUBJECTIVE: CC: SOB and sputum production HPI: Zulma 83 y/o lady with h/o COPD, HTN, CAD, s/p AL,RA, diastolic heart failure, SBO, CCY, endometrial cancer, s/p Hysterectomy, AR, hypothyroidism, and other medical problems who presented with SOB and productive cough. She reports runny nose a week ago, nO fever or chills. 2 days ago, she started having cough with whitish sputum production then turned into green. she felt SOB and with tightness in her chest. she has been using her inhalers more frequently. she denies sick contact. last time she was on any Abx or steroids was a year ago by Dr. Villarreal. of note she has 2 L of O2 to use as needed. In ER, she was given breathing treatments which made her much better. she also received steroids. OBJECTIVE: NAD, awake, alert oriented, and cooperative. has NC on . cachectic . Arcus senalis noted b/l HEENT: slightly congested oropharynx. No exudate. MMM, R submandibular gland enlargement. dentures CV: RRR, 2/6 Sm at LLSB Lungs: decreased breath sounds at bases . minimal crackles at bases and In L upper lung field Abd: soft, NT, Nd , NL BS . Ext ; No edema , or erytehma, bruises on skin. No signs of fungal infection in toe webs. DP 2+ b/l Neuro: EOMI, round equal pupils, reactive to light. no facial droop. nl facial sensation . Strength 5/5 in upper and lwoer extremities proximally and distally. sensation to light touch NL. ASSESSMENT AND PLAN: Zulma 83 y/o lady with h/o COPD, HTN, CAD, s/p AL, diastolic heart failure, SBO, CCY, endometrial cancer, s/p Hysterectomy, AR, hypothyroidism, and other medical problems who presented with SOB and productive cough. 1- SOB and productive cough. most likely due to acute COPD exacerbation given significant improvement with steroids and Nebs in ER. Cxray is clear , with no infiltrates. clinical picture does not fit with PNA. - Start Solu-medrol daily - Duo-Nebs standing and as needed - azithromycin for antiinflammatory effect for total of 3 days - given the minimal fine crackles in left upper lung filed , will repeat cxray in Am to look for a developing infiltrate. - add symbicort - chest tightness is dueu to the COPD, I doubt ACS. EKG with sinus rhythm, TWI V1, and flat TW in AVL and V2. these changes were evident on EKG form 09/16. QTC 414. - check trop 2- H/o HTN: cont chlorthalidone and metoprolol. 3- h/o endometrial cancer s/p hysterectomy. 4- H/o anxiety, cont her PRN xanax 5- Hypothyroidism: cont synthroid 6- DVT px : lovenox 30 mg daily per her Cr Cl Not all her meds were confirmed. resident to call the second pharmacy to confirm all.
[2019-10-29] MEDS: ALBUTEROL SO4 2.5/IPRATROPIUM 0.5 INH SOL 3 ML VIAL.NEB. NEB SCH (20:04)
[2019-10-29] MEDS ORDERED: BUDESONIDE/FORMETEROL FUMARATE 80/4.5 mcg INHALER IH SCH (22:00)
[2019-10-30] MEDS: BUDESONIDE/FORMETEROL FUMARATE 160/4.5 mcg INHALER IH SCH ×3 (00:12→21:14)
[2019-10-30] MEDS: LEVOTHYROXINE NA 25 MCG TABLET (FP) PO SCH (06:28)
[2019-10-30 07:56] LABS: BASO % 0.1 % (0-2.0); HEMATOCRIT 30.7 % (32.4-45.2); HEMOGLOBIN 10.4 GM/dL (10.7-15.3); LYMPH % 9.1 % (8-40); MCH 29.3 pg (25.7-33.7); MCHC 33.8 g/dl (32.0-36.0); MEAN CELL VOLUME 86.6 fl (80-96); MEAN PLT VOLUME 8.9 fl (7.5-11.1); MONO % 4.1 % (3.8-10.2); NEUT % 86.7 % (42.8-82.8); PLATELET COUNT 198 K/MM3 (134-434); RBC 3.54 M/mm3 (3.60-5.2); RDW 13.7 % (11.6-15.6); WHITE BLOOD COUNT 6.3 K/mm3 (4.0-10.0)
[2019-10-30] MEDS: ALBUTEROL SO4 2.5/IPRATROPIUM 0.5 INH SOL 3 ML VIAL.NEB. NEB SCH ×4 (07:56→20:10)
[2019-10-30 08:20] LABS: BILIRUBIN,TOTAL 0.4 mg/dL (0.2-1); BLOOD UREA NITROGEN 29.3 mg/dL (7-18); CALCIUM 8.9 mg/dL (8.5-10.1); CREATININE 1.1 mg/dL (0.55-1.3); MAGNESIUM 2.2 mg/dL (1.8-2.4); PHOSPHOROUS 3.8 mg/dL (2.5-4.9); POTASSIUM 4.1 mmol/L (3.5-5.1); TOT PROT 6.1 g/dl (6.4-8.2)
[2019-10-30] MEDS: ENOXAPARIN NA (PORCINE) 30 MG/0.3 ML DISP.SYRIN SQ SCH (09:13)
[2019-10-30] MEDS: metoPROLOL SUCCINATE 25 MG TAB.SR.24H (FP) PO SCH (09:13)
[2019-10-30] MEDS: CHLORTHALIDONE 25 MG TABLET PO SCH (09:13)
[2019-10-30] MEDS: AZITHROMYCIN 250 MG TABLET PO SCH (09:14)
[2019-10-30] MEDS: ASPIRIN COATED 81 MG TABLET.EC PO SCH (09:14)
[2019-10-30] MEDS: ESTROGENS,CONJUGATED 1.25 MG TABLET PO SCH (09:21)
[2019-10-30 09:27] LABS: URINE APPEARANCE CLEAR; URINE BILIRUBIN NEGATIVE (NEGATIVE); URINE COLOR YELLOW; URINE GLUCOSE (UA) NEGATIVE (NEGATIVE); URINE KETONE NEGATIVE (NEGATIVE); URINE LEUK ESTERASE NEGATIVE (NEGATIVE); URINE NITRITE NEGATIVE (NEGATIVE); URINE PROTEIN TRACE (NEGATIVE); URINE UROBILINOGEN 0.2 mg/dL (0.2-1.0)
[2019-10-30] MEDS ORDERED: methylPREDNISolone NA SUCC 40 MG/1 ML VIAL IVPUSH SCH (10:00)
[2019-10-30] MEDS ORDERED: PATIENT'S OWN MEDICATION (NON-FORMULARY) (Mirabegron [Myrbetriq] 25 MG) PO SCH (10:00)
--- NOTE | 2019-10-30 10:21 | EKG ---
Test Reason : Blood Pressure : / mmHG Vent. 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
--- NOTE | 2019-10-30 10:42 | PN ---
Progress Note, Physician Chief Complaint: COPD Exacerbation History of Present Illness: Previous notes and events reviewed awake and alert NAD sts her breathing is better and cough is improving denies chest pain or sob - Current Medication List Current Medications: Active Medications Albuterol Sulfate (Ventolin 0.083% Nebulizer Soln -) 1 amp NEB Q6H PRN PRN Reason: SHORT OF BREATH/WHEEZING Albuterol/Ipratropium (Duoneb -) 1 amp NEB RQID [facility] Last Admin: 10/30/19 07:56 Dose: 1 amp Alprazolam (Xanax -) 0.25 mg PO DAILY PRN PRN Reason: ANXIETY Aspirin (Ecotrin -) 81 mg PO DAILY [facility] Last Admin: 10/30/19 09:14 Dose: 81 mg Azithromycin (Zithromax -) 250 mg PO DAILY [facility] Stop: 10/31/19 10:01 Last Admin: 10/30/19 09:14 Dose: 250 mg Budesonide/Formoterol Fumarate (Symbicort 160/4.5mcg -) 2 puff IH BID [facility] Last Admin: 10/30/19 09:15 Dose: 2 puff Chlorthalidone (Hygroton -) 25 mg PO DAILY [facility] Last Admin: 10/30/19 09:13 Dose: 25 mg Enoxaparin Sodium (Lovenox -) 30 mg SQ DAILY [facility] Last Admin: 10/30/19 09:13 Dose: 30 mg Estrogens Conjugated (Premarin -) 1.25 mg PO DAILY [facility] Last Admin: 10/30/19 09:21 Dose: 1.25 mg Levothyroxine Sodium (Synthroid -) 25 mcg PO ACBK [facility] Last Admin: 10/30/19 06:28 Dose: 25 mcg Meclizine HCl (Antivert -) 12.5 mg PO Q6H PRN PRN Reason: vertigo Methylprednisolone Sodium Succinate (Solu-Medrol -) 40 mg IVPUSH DAILY [facility] Last Admin: 10/30/19 09:35 Dose: 40 mg Metoprolol Succinate (Toprol Xl -) 25 mg PO DAILY [facility] Last Admin: 10/30/19 09:13 Dose: 25 mg Non-Formulary Medication (Mirabegron [Myrbetriq]) 25 mg PO DAILY [facility] - Objective Vital Signs: Vital Signs Temperature 97.3 F L 10/30/19 09:00 Pulse Rate 48 L 10/30/19 09:00 Respiratory Rate 18 10/30/19 09:00 Blood Pressure 106/43 L 10/30/19 09:00 O2 Sat by Pulse Oximetry (%) 100 10/30/19 09:00 Constitutional: Yes: No Distress, Calm Eyes: Yes: Conjunctiva Clear HENT: Yes: Atraumatic Cardiovascular: Yes: Regular Rate and Rhythm Respiratory: Yes: Regular, Diminished Gastrointestinal: Yes: Normal Bowel Sounds, Soft Musculoskeletal: Yes: Muscle Weakness Extremities: Yes: WNL Edema: No Integumentary: Yes: Bruising (lower extremity) Neurological: Yes: Alert, Oriented Psychiatric: Yes: Alert, Oriented Labs: CBC, BMP 10/30/19 07:00 10/30/19 07:00 Problem List - Problems (1) COPD exacerbation Assessment/Plan: -Pulm on board -CXR shows no acute pathology, small RUL nodule -no leukocytosis -Azithromycin -Bronchodilators -Symbicort -IV Medrol -keep SpO2 >90% -O2 via NC Code(s): J44.1 - CHRONIC OBSTRUCTIVE PULMONARY DISEASE W (ACUTE) EXACERBATION (2) Hyperlipidemia Assessment/Plan: -lipid panel Code(s): E78.5 - HYPERLIPIDEMIA, UNSPECIFIED (3) Hypothyroidism Assessment/Plan: -Levothyroxine Code(s): E03.9 - HYPOTHYROIDISM, UNSPECIFIED (4) Overactive bladder Assessment/Plan: -Mybetriq Code(s): N32.81 - OVERACTIVE BLADDER (5) Coronary artery disease Assessment/Plan: -Aspirin Code(s): I25.10 - ATHSCL HEART DISEASE OF [place] CORONARY ARTERY W/O ANG PCTRS (6) Diastolic CHF Assessment/Plan: -1L fluid restriction -daily weights -low Na diet Code(s): I50.30 - UNSPECIFIED DIASTOLIC (CONGESTIVE) HEART FAILURE (7) HTN (hypertension) Assessment/Plan: -Chlorthalidone -low Na diet Code(s): I10 - ESSENTIAL (PRIMARY) HYPERTENSION (8) Leukocytosis Assessment/Plan: -BC pending -12.4~6.3 -resolved Code(s): D72.829 - ELEVATED WHITE BLOOD CELL COUNT, UNSPECIFIED Assessment/Plan see problem list dvt ppx
--- NOTE | 2019-10-30 12:55 | CON.PULM ---
Consult Consult Specialty:: PULMONARY Referred by:: Dr Bravo Reason for Consultation:: COPD - History of Present Illness Chief Complaint: shortness of breath History of Present Illness: 83yo female with h/o HTN, CAD, LV diastolic dysfunction, COPD, chronic hypoxic respiratory failure on home O2, hypothyroidism, h/o cervical cancer who was admitted with worsening shortness of breath and cough x 2 days. Denies chest pain or discomfort. No fevers, chills or sweats. Was visiting son who was sick. +cough productive of dark green sputum and wheezing. She is a former smoker. - History Source History Provided By: Patient, Medical Record Limitations to Obtaining History: No Limitations - Past Medical History Cardio/Vascular: Yes: CAD, HTN, DE Pulmonary: Yes: Bronchitis, COPD ...LMP Comment: 1976 ...: No - Alcohol/Substance Use Hx Alcohol Use: No - Smoking History Smoking history: Former smoker Have you smoked in the past 12 months: No Aproximately how many cigarettes per day: 10 If you are a former smoker, when did you quit?: 12 years ago Home Medications - Allergies Allergies/Adverse Reactions: Allergies Allergy/AdvReac Type Severity Reaction Status Date / Time No Known Allergies Allergy Verified 10/29/19 13:13 - Home Medications Home Medications: Ambulatory Orders Albuterol Sulfate Inhaler - [Ventolin HFA Inhaler -] 1 - 2 inh IH TID PRN Estrogens,Conjugated [Premarin] 1.25 mg PO DAILY 11/16/12 Levothyroxine [Synthroid -] 25 mcg PO DAILY 11/16/12 Albuterol 2.5/Ipratropium 0.5 [Duoneb -] 1 neb NEB TID PRN 02/19/15 Mirabegron [Myrbetriq] 25 mg PO DAILY 02/19/15 Alprazolam 0.25 mg PO DAILY PRN 09/19/17 Metoprolol Succinate [Toprol XL -] 25 mg PO DAILY 09/19/17 Meclizine HCl [Antivert -] 12.5 mg PO Q6H PRN #14 tablet 09/20/17 Aspirin [Aspirin EC] 81 mg PO DAILY 10/29/19 Chlorthalidone 25 mg PO DAILY 10/29/19 Review of Systems - Review of Systems Constitutional: denies: Chills, Fever, Weakness Eyes: denies: Recent Change in Vision HENT: denies: Nasal Congestion, Throat Pain Neck: denies: Stiffness, Tenderness Cardiovascular: reports: Shortness of Breath. denies: Chest Pain, Palpitations Respiratory: reports: Cough, SOB on Exertion, Wheezing. denies: Hemoptysis Gastrointestinal: denies: Abdominal Pain, Nausea, Vomiting Genitourinary: denies: Dysuria, Hematuria Neurological: denies: Dizziness, Headache Endocrine: denies: Unexplained Weight Loss Physical Exam Vital Sings: Vital Signs Temperature 97.3 F L 10/30/19 09:00 Pulse Rate 48 L 10/30/19 09:00 Respiratory Rate 18 10/30/19 09:00 Blood Pressure 106/43 L 10/30/19 09:00 O2 Sat by Pulse Oximetry (%) 100 10/30/19 09:00 Constitutional: Yes: Calm Eyes: Yes: Conjunctiva Clear, EOM Intact HENT: Yes: Atraumatic, Normocephalic Neck: Yes: Supple, Trachea Midline Cardiovascular: Yes: Regular Rate and Rhythm Respiratory: Yes: Diminished (distant breath sounds) ...Clubbing: No Gastrointestinal: Yes: Normal Bowel Sounds, Soft. No: Tenderness Edema: No Labs: CBC, BMP 10/30/19 07:00 10/30/19 07:00 Imaging - Results Chest X-ray: Report Reviewed, Image Reviewed (no infiltrates) Problem List - Problems (1) COPD exacerbation Code(s): J44.1 - CHRONIC OBSTRUCTIVE PULMONARY DISEASE W (ACUTE) EXACERBATION (2) Acute bronchitis Code(s): J20.9 - ACUTE BRONCHITIS, UNSPECIFIED Assessment/Plan Acute COPD Exacerbation Acute Bronchitis Chronic Hypoxic Respiratory Failure CAD LV Diastolic Dysfunction Hypothyroidism - short course of medrol - if continues to improve, can likely change steroids to PO in AM - inhaled bronchodilators - azithromycin - O2 to keep Spo2 >90% - DVT prophylaxis Thank you for this consult Kaz Baker MD
[2019-10-30 16:07] VITALS: BMI 16.7
[2019-10-30] MEDS: methylPREDNISolone NA SUCC 40 MG/1 ML VIAL IVPUSH SCH (17:02)
[2019-10-31] MEDS: methylPREDNISolone NA SUCC 40 MG/1 ML VIAL IVPUSH SCH ×2 (01:09→10:51)
[2019-10-31] MEDS: LEVOTHYROXINE NA 25 MCG TABLET (FP) PO SCH (06:14)
[2019-10-31 07:00] LABS: HEMATOCRIT 31.2 % (32.4-45.2); HEMOGLOBIN 10.5 GM/dL (10.7-15.3); MCH 29.3 pg (25.7-33.7); MCHC 33.7 g/dl (32.0-36.0); MEAN CELL VOLUME 87.1 fl (80-96); MEAN PLT VOLUME 8.6 fl (7.5-11.1); PLATELET COUNT 241 K/MM3 (134-434); RBC 3.58 M/mm3 (3.60-5.2); RDW 13.3 % (11.6-15.6); WHITE BLOOD COUNT 8.2 K/mm3 (4.0-10.0)
[2019-10-31] MEDS: ALBUTEROL SO4 2.5/IPRATROPIUM 0.5 INH SOL 3 ML VIAL.NEB. NEB SCH ×2 (07:37→11:39)
[2019-10-31 07:44] LABS: ALBUMIN 3.2 g/dl (3.4-5.0); BILIRUBIN,TOTAL 0.4 mg/dL (0.2-1); BLOOD UREA NITROGEN 36.3 mg/dL (7-18); CALCIUM 9.6 mg/dL (8.5-10.1); CREATININE 1.2 mg/dL (0.55-1.3); POTASSIUM 3.9 mmol/L (3.5-5.1); TOT PROT 6.4 g/dl (6.4-8.2)
[2019-10-31] MEDS: CHLORTHALIDONE 25 MG TABLET PO SCH (10:05)
[2019-10-31] MEDS: AZITHROMYCIN 250 MG TABLET PO SCH (10:06)
[2019-10-31] MEDS: metoPROLOL SUCCINATE 25 MG TAB.SR.24H (FP) PO SCH (10:06)
[2019-10-31] MEDS: ASPIRIN COATED 81 MG TABLET.EC PO SCH (10:06)
[2019-10-31] MEDS: ENOXAPARIN NA (PORCINE) 30 MG/0.3 ML DISP.SYRIN SQ SCH (10:06)
[2019-10-31] MEDS ORDERED: FLU VACCINE QUAD 60 MCG/0.5 ML (MDV 19-20) IM ONE (10:07)
[2019-10-31] MEDS ORDERED: PT OWN MED DRAWER 7, Y5N ONE (10:08)
[2019-10-31] MEDS: ESTROGENS,CONJUGATED 1.25 MG TABLET PO SCH (10:08)
[2019-10-31 10:09] VITALS: BP 129/48; PULSE 76; TEMP 97.4
--- NOTE | 2019-10-31 10:09 | PN ---
Progress Note (short form) - Note Progress Note: PULMONARY Feels better today, close to normal. No fevers. Vital Signs Period Temp Pulse Resp BP Sys/Sawyer Pulse Ox Last 24 Hr 97.6 F-98.3 F 70-84 17-20 116-127/46-53 100 Gen: NAD at rest Heart: RRR Lung: distant breath sounds, no wheezes Abd: soft, nontender Ext: no edema CBC, BMP 10/31/19 06:30 10/31/19 06:30 Active Medications Albuterol Sulfate (Ventolin 0.083% Nebulizer Soln -) 1 amp NEB Q6H PRN PRN Reason: SHORT OF BREATH/WHEEZING Albuterol/Ipratropium (Duoneb -) 1 amp NEB RQID REPLACED BY [facility] Last Admin: 10/31/19 07:37 Dose: 1 amp Alprazolam (Xanax -) 0.25 mg PO DAILY PRN PRN Reason: ANXIETY Aspirin (Ecotrin -) 81 mg PO DAILY REPLACED BY [facility] Last Admin: 10/30/19 09:14 Dose: 81 mg Budesonide/Formoterol Fumarate (Symbicort 160/4.5mcg -) 2 puff IH BID REPLACED BY [facility] Last Admin: 10/30/19 21:14 Dose: 2 puff Chlorthalidone (Hygroton -) 25 mg PO DAILY REPLACED BY [facility] Last Admin: 10/30/19 09:13 Dose: 25 mg Enoxaparin Sodium (Lovenox -) 30 mg SQ DAILY REPLACED BY [facility] Last Admin: 10/30/19 09:13 Dose: 30 mg Estrogens Conjugated (Premarin -) 1.25 mg PO DAILY REPLACED BY [facility] Last Admin: 10/30/19 09:21 Dose: 1.25 mg Influenza Virus Vaccine Quadrival (Flulaval Quad [id number]) 60 mcg IM .ONCE ONE Stop: 10/31/19 10:08 Levothyroxine Sodium (Synthroid -) 25 mcg PO ACBK REPLACED BY [facility] Last Admin: 10/31/19 06:14 Dose: 25 mcg Meclizine HCl (Antivert -) 12.5 mg PO Q6H PRN PRN Reason: vertigo Methylprednisolone Sodium Succinate (Solu-Medrol -) 40 mg IVPUSH Q8H-IV REPLACED BY [facility] Last Admin: 10/31/19 01:09 Dose: 40 mg Metoprolol Succinate (Toprol Xl -) 25 mg PO DAILY REPLACED BY [facility] Last Admin: 10/30/19 09:13 Dose: 25 mg Non-Formulary Medication (Mirabegron [Myrbetriq]) 25 mg PO DAILY REPLACED BY [facility] A/P Acute COPD Exacerbation Acute Bronchitis Chronic Hypoxic Respiratory Failure CAD LV Diastolic Dysfunction Hypothyroidism - can change steroids to PO prednisone 40mg daily and complete 5 more days - inhaled bronchodilators - azithromycin x 5 days - O2 to keep Spo2 >90% - DVT prophylaxis - can d/c home from pulmonary standpoint Problem List - Problems (1) COPD exacerbation Code(s): J44.1 - CHRONIC OBSTRUCTIVE PULMONARY DISEASE W (ACUTE) EXACERBATION (2) Acute bronchitis Code(s): J20.9 - ACUTE BRONCHITIS, UNSPECIFIED
[2019-10-31] MEDS: BUDESONIDE/FORMETEROL FUMARATE 160/4.5 mcg INHALER IH SCH (10:10)
--- NOTE | 2019-10-31 10:19 | DS ---
Physical Examination Vital Signs: Vital Signs Temperature 97.4 F L 10/31/19 10:07 Pulse Rate 76 10/31/19 10:07 Respiratory Rate 18 10/31/19 10:07 Blood Pressure 129/48 L 10/31/19 10:07 O2 Sat by Pulse Oximetry (%) 100 10/30/19 20:23 Constitutional: Yes: No Distress Cardiovascular: Yes: Regular Rate and Rhythm Respiratory: Yes: Diminished Gastrointestinal: Yes: WNL Labs: CBC, BMP 10/31/19 06:30 10/31/19 06:30 Discharge Summary Problems reviewed: Yes Reason For Visit: COPD Current Active Problems Acute bronchitis (Acute) COPD exacerbation (Acute) Cough (Chronic) Procedures: Principal: chest xrays/labs Hospital Course: admitted for copd exacerbation, started on abx, steroids 02 support improved Plan of Treatment: prednisone taper Goals: see Dr Villarreal in 1 week Prednisone taper as instructed Condition: Improved - Instructions Diet, Activity, Other Instructions: see dr villarreal in 1 week Disposition: HOME - Home Medications Comprehensive Discharge Medication List: Ambulatory Orders Albuterol Sulfate Inhaler - [Ventolin HFA Inhaler -] 1 - 2 inh IH TID PRN Estrogens,Conjugated [Premarin] 1.25 mg PO DAILY 11/16/12 Levothyroxine [Synthroid -] 25 mcg PO DAILY 11/16/12 Albuterol 2.5/Ipratropium 0.5 [Duoneb -] 1 neb NEB TID PRN 02/19/15 Mirabegron [Myrbetriq] 25 mg PO DAILY 02/19/15 Alprazolam 0.25 mg PO DAILY PRN 09/19/17 Metoprolol Succinate [Toprol XL -] 25 mg PO DAILY 09/19/17 Meclizine HCl [Antivert -] 12.5 mg PO Q6H PRN #14 tablet 09/20/17 Aspirin [Aspirin EC] 81 mg PO DAILY 10/29/19 Chlorthalidone 25 mg PO DAILY 10/29/19 Azithromycin [Zithromax 250mg Tablets -] 250 mg PO DAILY #4 tablet 10/31/19 Budesonide/Formeterol Fumarate [SYMBICORT 160/4.5mcg -] 2 puff IH BID #1 inhaler 10/31/19 predniSONE [Deltasone -] See Taper PO DAILY #30 tablet 10/31/19 Prescription Drug Monitoring Program (I-STOP) results: I-STOP not reviewed
--- NOTE | 2019-11-27 08:57 | PN ---
Progress Note (short form) - Note Progress Note: ADDENDUM DIAGNOSIS: SEVERE PROTEIN - CALORIE MALNUTRITION WITH BMI 16.8 AND [place]
== END 2019-10-31 14:30 | disposition home or self-care (01) | DRG 190 ==
LOC: JER 13:04 → JERBED 17:00 → J7W 20:39
PROVIDERS: ADMIT Internal Medicine; ATTEND Family Medicine
DX: J44.1 Chronic obstructive pulmonary disease with (acute) exacerbation (principal); E43 Unspecified severe protein-calorie malnutrition; I50.30 Unspecified diastolic (congestive) heart failure; J96.11 Chronic respiratory failure with hypoxia; R64 Cachexia; Z68.1 Body mass index [BMI] 19.9 or less, adult; J20.9 Acute bronchitis, unspecified; I10 Essential (primary) hypertension; I11.0 Hypertensive heart disease with heart failure; I25.10 Atherosclerotic heart disease of native coronary artery without angina pectoris; F41.9 Anxiety disorder, unspecified; J06.9 Acute upper respiratory infection, unspecified; D72.829 Elevated white blood cell count, unspecified; R42 Dizziness and giddiness; E03.9 Hypothyroidism, unspecified; I25.2 Old myocardial infarction; Z99.81 Dependence on supplemental oxygen; Z85.42 Personal history of malignant neoplasm of other parts of uterus; Z87.891 Personal history of nicotine dependence
CPT/HCPCS: 36415; 71045-TC-FY; 71046-TC-FY; 80053; 81003; 83735; 84100; 84484; 85025; 85027; 87040; 87804; 93005; 93010; 94640; 99284-25; G0008; J1410; Q2036

== ENCOUNTER 2020-07-06 23:42 | Inpatient (IN) | payer OTHER ==
[2020-07-06 23:51] VITALS: BMI 19.5
[2020-07-07] MEDS ORDERED: ALBUTEROL SO4 2.5/IPRATROPIUM 0.5 INH SOL 3 ML VIAL.NEB. NEB ONE ×2 (01:34→02:16)
[2020-07-07] MEDS ORDERED: SODIUM CHLORIDE 500 ML IV STA (01:34)
[2020-07-07] MEDS ORDERED: ACETAMINOPHEN 1000 MG/100 ML VIAL (NON FORMULARY) IVPB ONE (01:34)
[2020-07-07] MEDS ORDERED: methylPREDNISolone NA SUCC 125 MG/2 ML VIAL IVPB ONE (01:34)
[2020-07-07] MEDS ORDERED: LIDOCAINE 5% TOPICAL PATCH TP ONE (01:34)
--- NOTE | 2020-07-07 01:43 | PDOC ---
History of Present Illness - General Chief Complaint: Shortness of Breath Stated Complaint: DIFFICULTY BREATHING Time Seen by Provider: 07/07/20 01:24 History Source: Patient Exam Limitations: No Limitations - History of Present Illness Initial Comments: Cornelia is an 84 yo F w a hx of COPD on home oxygen (Setting 2 on her device not sure how much oxygen this is), diastolic HF, HTN, CAD, LA, hypothyroidism, and cervical cancer s/p hysterectomy who presents with increased shortness of breath and cough states she thinks she has been experiencing a worsening COPD exacerbation. States she has been requiring more oxygen than usual at home for the past few days. Denies chest pain, nausea, vomiting, increased need for pillows PCP: Dr. Mccrary PSH: hysterectomy, cholecystectomy, SBO Social Hx: 10+ pack year smoking hx quit over 10 years ago Allergies: NKA, NKDA Past History - Medical History Allergies/Adverse Reactions: Allergies Allergy/AdvReac Type Severity Reaction Status Date / Time No Known Allergies Allergy Verified 07/06/20 23:48 Home Medications: Ambulatory Orders Albuterol Sulfate Inhaler - [Ventolin HFA Inhaler -] 1 - 2 inh IH TID PRN 11/16/12 Estrogens,Conjugated [Premarin] 1.25 mg PO DAILY 11/16/12 Levothyroxine [Synthroid -] 25 mcg PO DAILY 11/16/12 Albuterol 2.5/Ipratropium 0.5 [Duoneb -] 1 neb NEB TID PRN 02/19/15 Mirabegron [Myrbetriq] 25 mg PO DAILY 02/19/15 Alprazolam 0.25 mg PO DAILY PRN 09/19/17 Metoprolol Succinate [Toprol XL -] 25 mg PO DAILY 09/19/17 Meclizine HCl [Antivert -] 12.5 mg PO Q6H PRN #14 tablet 09/20/17 Aspirin [Aspirin EC] 81 mg PO DAILY 10/29/19 Chlorthalidone 25 mg PO DAILY 10/29/19 Budesonide/Formeterol Fumarate [SYMBICORT 160/4.5mcg -] 2 puff IH BID #1 inhaler 10/31/19 Acetaminophen [Tylenol .Extra-Strength -] 500 mg PO Q6H PRN tablet 07/08/20 Albuterol Sulfate Inhaler - [Ventolin HFA Inhaler -] 2 puff IH Q4H PRN inhaler 07/08/20 Albuterol Sulfate Inhaler - [Ventolin HFA Inhaler -] 2 puff IH RQ4H inhaler 07/08/20 Aspirin Coated [Ecotrin -] 81 mg PO DAILY tablet.ec 07/08/20 Docusate Sodium [Colace -] 100 mg PO BID PRN capsule 07/08/20 Escitalopram Oxalate [Lexapro -] 10 mg PO DAILY #30 tablet 07/08/20 Escitalopram Oxalate [Lexapro -] 10 mg PO DAILY #30 tablet 07/08/20 Levothyroxine [Synthroid -] 25 mcg PO DAILY@0700 tablet 07/08/20 Lidocaine 5% Patch [Lidoderm -] 1 patch TP DAILY patch 07/08/20 Metoprolol Succinate [Toprol XL -] 25 mg PO DAILY tab.sr.24h 07/08/20 Polyethylene Glycol 3350 [Miralax 119 gm Btl -] 17 gm PO DAILY bottle 07/08/20 Prednisone See Taper PO ASDIR #30 tablet 07/08/20 predniSONE [Deltasone -] See Taper PO DAILY #30 tablet 07/08/20 Anemia: No Asthma: No Cancer: Yes (UTERINE) Cardiac Disorders: Yes (2 LA'S) CVA: No COPD: Yes CHF: No Dementia: No Diabetes: No GI Disorders: No Disorders: No HTN: Yes Hypercholesterolemia: No Liver Disease: No Seizures: No Thyroid Disease: Yes (hypothyroidism) - Surgical History Abdominal Surgery: Yes (BLOCKAGE) Appendectomy: Yes Cardiac Surgery: No Cholecystectomy: Yes Lung Surgery: No Neurologic Surgery: No Orthopedic Surgery: No - Reproductive History Is Patient Now?: No - Immunization History Immunization Up to Date: Yes - Psycho-Social/Smoking History Smoking Status: Yes Smoking History: Former smoker Have you smoked in the past 12 months: No Number of Cigarettes Smoked Daily: 10 If you are a former smoker, when did you quit?: 12 years ago Information on smoking cessation initiated: No 'Breaking Loose' booklet given: 11/20/12 - Substance Abuse Hx (Audit-C & DAST Scrn) How often the patient has a drink containing alcohol: Never Score: In Men: 4 or > Positive; In Women: 3 or > Positive: 0 Screen Result (Pos requires Nsg. Audit-10AR): Negative In the last yr the pt used illegal drug/Rx for NonMed reason: No Score: Yes response is considered Positive: 0 Screen Result (Positive result requires Nsg. DAST-10): Negative Review of Systems - Review of Systems Able to Perform ROS?: Yes Comments:: CONSTITUTIONAL: Present: fatigue Absent: fever, no chills EYES: Absent: visual changes ENT: Absent: ear pain, no sore throat CARDIOVASCULAR: Absent: chest pain, no palpitations RESPIRATORY: Present: SOB, cough GI: Absent: abdominal pain, no nausea, no vomiting, no constipation, no diarrhea GENITOURINARY: Absent: dysuria, no frequency, no hematuria MUSKULOSKELETAL: Absent: back pain, no arthralgia, no myalgia SKIN: Absent: rash NEURO: Absent: headache *Physical Exam - Vital Signs Last Vital Signs Temp Pulse Resp BP Pulse Ox 98.6 F 87 20 139/57 L 96 07/06/20 23:44 07/06/20 23:44 07/06/20 23:44 07/06/20 23:44 07/06/20 23:44 - Physical Exam GENERAL: Well-appearing, well-nourished. No apparent distress. HEENT: Normocephalic, atraumatic. PERRL, EOM intact. CARDIOVASCULAR: Normal S1, S2. Regular rate and rhythm. PULMONARY: Mild left sided wheezes. Decreased breath sounds throughout. mild evidence of respiratory distress. No rales or rhonchi. ABDOMEN: Soft, non-distended, non-tender. EXTREMITIES: Normal ROM in all four extremities. No gross deformities. No leg swelling SKIN: Warm, dry. No rash NEUROLOGICAL: No focal neurological deficits. ED Treatment Course - LABORATORY CBC & Chemistry Diagram: 07/08/20 06:27 07/08/20 06:27 - RADIOLOGY Radiology Studies Ordered: Category Date Time Status CHEST X-RAY PORTABLE* [RAD] Stat Radiology 07/07/20 01:38 Ordered Medical Decision Making - Medical Decision Making Cornelia is an 84 yo F w a hx of COPD on home oxygen (Setting 2 on her device not sure how much oxygen this is), diastolic HF, HTN, CAD, LA, hypothyroidism, and cervical cancer s/p hysterectomy who presents with increased shortness of breath and cough states she thinks she has been experiencing a worsening COPD exacerbation. States she has been requiring more oxygen than usual at home for the past few days. Vital Signs Temp Pulse Resp BP Pulse Ox 98.6 F 87 20 139/57 L 96 07/06/20 23:44 07/06/20 23:44 07/06/20 23:44 07/06/20 23:44 07/06/20 23:44 DDx IBNLT: COPD, heart failure, ACS, electrolyte/metabolic disturbance Plan: Labs, ekg, cxr, breathing treatments admission for COPD/SOB Discharge - Discharge Information Problems reviewed: Yes Clinical Impression/Diagnosis: Shortness of breath, CHF exacerbation Condition: Stable Disposition: HOME - Follow up/Referral - Patient Discharge Instructions - Post Discharge Activity
--- NOTE | 2020-07-07 02:02 | PDOC ---
Attending Attestation - Resident Resident Name: Johnson Ordonez - ED Attending Attestation I have performed the following: I have examined & evaluated the patient, The case was reviewed & discussed with the resident, I agree w/resident's findings & plan - HPI HPI: 07/07/20 05:50 Pt comes with SOB and CHF exacerbation. Pt has not been eating well. Pt is accompanied by her nephew. He tells me that pt is under a lot of stress, as her son is "upstate" and her granddaughter is in the process of getting adopteb by the nephew's family. Pt has been liivng on her own, as she used to live with her son; apparently cannot care of herself. Pt has no other cmplaints. - Physicial Exam PE: 07/07/20 05:50 Agree with resident exam 07/07/20 06:33 Pt has clear lung garcia Heart S1S2 RRR no abd pain and no flank pain Pt has dry mouth, but HEENT normal Pt has no ext swelling Pt is alert and awake. he is thin, and somewhat frail. - Medical Decision Making 07/07/20 04:09 Pt has an elevated BN:P Heart Score/ECG Review - ECG Intrepretation Rhythm: Regular Rhythm - [place]: Normal - P and [place] Delta Wave(s) Present: No WPW: No - QRS Poor R Wave Progression: No Q Wave Present: No - ST and T Early Repolarization: No Non Specific ST-T Wave changes: No - ECG Impressions Normal ECG: Yes Non-specific ST Elevation: No Ischemic Changes: No Discharge - Discharge Information Problems reviewed: Yes Clinical Impression/Diagnosis: Shortness of breath, CHF exacerbation - Follow up/Referral - Patient Discharge Instructions - Post Discharge Activity
[2020-07-07] MEDS ORDERED: methylPREDNISolone NA SUCC 125 MG/2 ML VIAL ONE (02:26)
[2020-07-07] MEDS ORDERED: ACETAMINOPHEN INJECTION 100 ML IVPB ONE (02:26)
[2020-07-07] MEDS ORDERED: LIDOCAINE 5% TOPICAL PATCH ONE ×2 (02:29→11:07)
[2020-07-07 02:31] LABS: BASO % 0.8 % (0-2.0); EOS % 4.8 % (0-4.5); HEMATOCRIT 34.5 % (32.4-45.2); HEMOGLOBIN 11.6 GM/dL (10.7-15.3); LYMPH % 21.7 % (8-40); MCH 29.5 pg (25.7-33.7); MCHC 33.5 g/dl (32.0-36.0); MEAN CELL VOLUME 87.9 fl (80-96); MEAN PLT VOLUME 8.6 fl (7.5-11.1); MONO % 9.8 % (3.8-10.2); NEUT % 62.9 % (42.8-82.8); PLATELET COUNT 311 K/MM3 (134-434); RBC 3.93 M/mm3 (3.60-5.2); WHITE BLOOD COUNT 8.7 K/mm3 (4.0-10.0)
[2020-07-07 02:36] LABS: INR 0.96 (0.83-1.09); PROTHROMBIN TIME (PATIENT) 11.3 SEC (9.7-13.0)
[2020-07-07 02:56] LABS: ALBUMIN 3.2 g/dl (3.4-5.0); BILIRUBIN,TOTAL 0.2 mg/dL (0.2-1); BLOOD UREA NITROGEN 22.9 mg/dL (7-18); CALCIUM 8.8 mg/dL (8.5-10.1); CREATININE 1.1 mg/dL (0.55-1.3); POTASSIUM 4.6 mmol/L (3.5-5.1); TOT PROT 6.2 g/dl (6.4-8.2)
[2020-07-07 02:58] LABS: MAGNESIUM 1.7 mg/dL (1.8-2.4); N-TERMINAL BNP 1785.2 pg/ml (5-450)
[2020-07-07] MEDS ORDERED: SODIUM CHLORIDE 0.9% 500 ML INFUS.BAG IV ONE (03:45)
[2020-07-07] MEDS ORDERED: MAGNESIUM SULF 50% (8.12 MEQ/2 ML-1 GM VIAL) IVPB ONE (04:10)
--- NOTE | 2020-07-07 04:43 | PN ---
Teaching Attending Note ATTENDING PHYSICIAN STATEMENT I saw and evaluated the patient. I reviewed the resident's note and discussed the case with the resident. I agree with the resident's findings and plan as documented. SUBJECTIVE: OBJECTIVE: ASSESSMENT AND PLAN:
[2020-07-07] MEDS ORDERED: MAGNESIUM 1GM/D5W - 1 GM/100 ML IVPB IVPB ONE (05:11)
[2020-07-07] MEDS ORDERED: DOCUSATE SODIUM 100 MG CAPSULE (FP) PO PRN (06:47)
[2020-07-07] MEDS ORDERED: ALBUTEROL SO4 HFA INHALER IH PRN (06:51)
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
[2020-07-07] MEDS ORDERED: ACETAMINOPHEN 500 MG TABLET (FP) PO PRN (07:20)
[2020-07-07] MEDS: ALBUTEROL SO4 HFA INHALER IH SCH ×4 (09:22→20:30)
[2020-07-07] MEDS ORDERED: predniSONE 20 MG TABLET (UD) PO SCH (10:00)
[2020-07-07] MEDS: POLYETHYLENE GLYCOL 3350 119 GM BTL PO SCH (11:00)
[2020-07-07] MEDS: ASPIRIN COATED 81 MG TABLET.EC PO SCH (11:00)
[2020-07-07] MEDS: ENOXAPARIN NA (PORCINE) 30 MG/0.3 ML DISP.SYRIN SQ SCH (11:00)
[2020-07-07] MEDS: metoPROLOL SUCCINATE 25 MG TAB.SR.24H (FP) PO SCH (11:00)
[2020-07-07] MEDS: LIDOCAINE 5% TOPICAL PATCH TP SCH (11:00)
--- NOTE | 2020-07-07 11:02 | PN ---
Progress Note, Physician - Current Medication List Current Medications: Active Medications Acetaminophen (Tylenol -) 500 mg PO Q6H PRN PRN Reason: PAIN LEVEL 4 - 6 Albuterol Sulfate (Ventolin Hfa Inhaler -) 2 puff IH RQ4H [facility] Last Admin: 07/07/20 09:22 Dose: 2 puff Documented by: Aspirin (Ecotrin -) 81 mg PO DAILY [facility] Docusate Sodium (Colace -) 100 mg PO BID PRN PRN Reason: CONSTIPATION Enoxaparin Sodium (Lovenox -) 30 mg SQ DAILY [facility] Levothyroxine Sodium (Synthroid -) 25 mcg PO DAILY@0700 [facility] Lidocaine (Lidoderm Patch -) 1 patch TP DAILY [facility] Metoprolol Succinate (Toprol Xl -) 25 mg PO DAILY [facility] Miscellaneous (Lidoderm Patch Removal) 1 each MC DAILY@2200 [facility] Polyethylene Glycol (Miralax (For Daily Use) -) 17 gm PO DAILY [facility] Prednisone (Deltasone -) 40 mg PO DAILY [facility] - Objective Vital Signs: Vital Signs Temperature 98 F 07/07/20 05:57 Pulse Rate 74 07/07/20 05:57 Respiratory Rate 17 07/07/20 05:57 Blood Pressure 110/45 L 07/07/20 05:57 O2 Sat by Pulse Oximetry (%) 99 07/07/20 04:05 Cardiovascular: Yes: S1 Respiratory: Yes: CTA Bilaterally, On Nasal O2 Gastrointestinal: Yes: Normal Bowel Sounds, Soft Edema: No Labs: CBC, BMP 07/07/20 02:10 07/07/20 02:10 INR, PTT INR 0.96 (0.83-1.09) 07/07/20 02:10 Problem List - Problems (1) COPD exacerbation Assessment/Plan: IV STEROIDS NEBS PULM COCSULT Code(s): J44.1 - CHRONIC OBSTRUCTIVE PULMONARY DISEASE W (ACUTE) EXACERBATION (2) Hypothyroidism Assessment/Plan: SAME MEDS Code(s): E03.9 - HYPOTHYROIDISM, UNSPECIFIED (3) Diastolic CHF Assessment/Plan: CARDIO CONSULT Code(s): I50.30 - UNSPECIFIED DIASTOLIC (CONGESTIVE) HEART FAILURE (4) HTN (hypertension) Code(s): I10 - ESSENTIAL (PRIMARY) HYPERTENSION
[2020-07-07] MEDS ORDERED: ASPIRIN COATED 81 MG TABLET.EC ONE (11:06)
[2020-07-07] MEDS ORDERED: predniSONE 20 MG TABLET (UD) ONE ×2 (11:06→22:47)
[2020-07-07] MEDS ORDERED: metoPROLOL SUCCINATE 25 MG TAB.SR.24H (FP) ONE (11:07)
[2020-07-07] MEDS ORDERED: ENOXAPARIN NA (PORCINE) 30 MG/0.3 ML DISP.SYRIN SQ ONE (11:07)
--- NOTE | 2020-07-07 11:07 | PN ---
Progress Note (short form) - Note Progress Note: PULMONARY CONSULTATION DICTATED 07/07/20 IMP COPD WITH ACUTE EXACERBATION ASHD S/P [place] X2 DIASTOLIC HF HYPOTHYROID H/O CERVICAL CA RUL NODULE INCREASED IN SIZE PLAN SUPPLEMENTAL O2 ' INHALED BRONCHODILATORS STEROIDS CARDIOLOGY EVAL PET CT OUTPATIENT DR STANTON Problem List - Problems (1) CHF exacerbation Code(s): I50.9 - HEART FAILURE, UNSPECIFIED (2) Shortness of breath Code(s): R06.02 - SHORTNESS OF BREATH (3) COPD (chronic obstructive pulmonary disease) Code(s): J44.9 - CHRONIC OBSTRUCTIVE PULMONARY DISEASE, UNSPECIFIED (4) COPD exacerbation Code(s): J44.1 - CHRONIC OBSTRUCTIVE PULMONARY DISEASE W (ACUTE) EXACERBATION (5) Hyperlipidemia Code(s): E78.5 - HYPERLIPIDEMIA, UNSPECIFIED (6) Hypothyroidism Code(s): E03.9 - HYPOTHYROIDISM, UNSPECIFIED (7) Lung nodule Code(s): R91.1 - SOLITARY PULMONARY NODULE (8) Diastolic CHF Code(s): I50.30 - UNSPECIFIED DIASTOLIC (CONGESTIVE) HEART FAILURE (9) HTN (hypertension) Code(s): I10 - ESSENTIAL (PRIMARY) HYPERTENSION
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
[2020-07-07] MEDS ORDERED: dilTIAZem HCL 125 MG/25 ML - 25 ML VIAL ONE (18:44)
[2020-07-07] MEDS ORDERED: ALBUTEROL SO4 HFA INHALER IH ONE (20:26)
[2020-07-07] MEDS ORDERED: LIDOCAINE PATCH REMOVAL MC SCH ×2 (22:00)
[2020-07-07] MEDS: predniSONE 20 MG TABLET (UD) PO SCH (22:54)
[2020-07-08] MEDS: ALBUTEROL SO4 HFA INHALER IH SCH ×4 (00:30→13:08)
[2020-07-08 06:32] VITALS: TEMP 97.4
[2020-07-08] MEDS ORDERED: LEVOTHYROXINE NA 25 MCG TABLET (FP) PO SCH (07:00)
[2020-07-08 07:22] LABS: HEMATOCRIT 33.1 % (32.4-45.2); HEMOGLOBIN 10.7 GM/dL (10.7-15.3); MCH 28.4 pg (25.7-33.7); MCHC 32.3 g/dl (32.0-36.0); MEAN CELL VOLUME 87.8 fl (80-96); MEAN PLT VOLUME 9.2 fl (7.5-11.1); PLATELET COUNT 274 K/MM3 (134-434); RBC 3.77 M/mm3 (3.60-5.2); RDW 12.9 % (11.6-15.6); WHITE BLOOD COUNT 12.4 K/mm3 (4.0-10.0)
[2020-07-08 07:53] LABS: CALCIUM 8.9 mg/dL (8.5-10.1); CREATININE 0.9 mg/dL (0.55-1.3); POTASSIUM 4.6 mmol/L (3.5-5.1)
--- NOTE | 2020-07-08 07:53 | PN ---
Progress Note, Physician - Current Medication List Current Medications: Active Medications Acetaminophen (Tylenol -) 500 mg PO Q6H PRN PRN Reason: PAIN LEVEL 4 - 6 Albuterol Sulfate (Ventolin Hfa Inhaler -) 2 puff IH RQ4H [facility] Last Admin: 07/08/20 05:00 Dose: 2 puff Documented by: Aspirin (Ecotrin -) 81 mg PO DAILY [facility] Last Admin: 07/07/20 11:00 Dose: 81 mg Documented by: Docusate Sodium (Colace -) 100 mg PO BID PRN PRN Reason: CONSTIPATION Enoxaparin Sodium (Lovenox -) 30 mg SQ DAILY [facility] Last Admin: 07/07/20 11:00 Dose: 30 mg Documented by: Levothyroxine Sodium (Synthroid -) 25 mcg PO DAILY@0700 [facility] Lidocaine (Lidoderm Patch -) 1 patch TP DAILY [facility] Last Admin: 07/07/20 11:00 Dose: 1 patch Documented by: Metoprolol Succinate (Toprol Xl -) 25 mg PO DAILY [facility] Last Admin: 07/07/20 11:00 Dose: 25 mg Documented by: Miscellaneous (Lidoderm Patch Removal) 1 each MC DAILY@2200 [facility] Last Admin: 07/07/20 19:05 Dose: 1 each Documented by: Polyethylene Glycol (Miralax (For Daily Use) -) 17 gm PO DAILY [facility] Last Admin: 07/07/20 11:00 Dose: 17 gm Documented by: Prednisone (Deltasone -) 40 mg PO BID [facility] Last Admin: 07/07/20 22:54 Dose: 40 mg Documented by: - Objective Vital Signs: Vital Signs Temperature 97.4 F L 07/08/20 06:30 Pulse Rate 58 L 07/08/20 06:30 Respiratory Rate 20 07/08/20 06:30 Blood Pressure 120/59 L 07/08/20 06:30 O2 Sat by Pulse Oximetry (%) 97 07/08/20 06:30 Labs: CBC, BMP 07/08/20 06:27 INR, PTT INR 0.96 (0.83-1.09) 07/07/20 02:10 Problem List - Problems (1) CHF exacerbation Code(s): I50.9 - HEART FAILURE, UNSPECIFIED (2) Shortness of breath Code(s): R06.02 - SHORTNESS OF BREATH (3) COPD (chronic obstructive pulmonary disease) Code(s): J44.9 - CHRONIC OBSTRUCTIVE PULMONARY DISEASE, UNSPECIFIED (4) COPD exacerbation Code(s): J44.1 - CHRONIC OBSTRUCTIVE PULMONARY DISEASE W (ACUTE) EXACERBATION (5) Hyperlipidemia Code(s): E78.5 - HYPERLIPIDEMIA, UNSPECIFIED (6) Hypothyroidism Code(s): E03.9 - HYPOTHYROIDISM, UNSPECIFIED (7) Lung nodule Code(s): R91.1 - SOLITARY PULMONARY NODULE (8) Diastolic CHF Code(s): I50.30 - UNSPECIFIED DIASTOLIC (CONGESTIVE) HEART FAILURE (9) HTN (hypertension) Code(s): I10 - ESSENTIAL (PRIMARY) HYPERTENSION Assessment/Plan IMP COPD WITH ACUTE EXACERBATION ASHD S/P IN X2 DIASTOLIC HF HYPOTHYROID H/O CERVICAL CA RUL NODULE PLAN SUPPLEMENTAL O2 ' INHALED BRONCHODILATORS STEROIDS CHEST CT Problem List - Problems (1) CHF exacerbation Code(s): I50.9 - HEART FAILURE, UNSPECIFIED (2) Shortness of breath Code(s): R06.02 - SHORTNESS OF BREATH (3) COPD (chronic obstructive pulmonary disease) Code(s): J44.9 - CHRONIC OBSTRUCTIVE PULMONARY DISEASE, UNSPECIFIED (4) COPD exacerbation Code(s): J44.1 - CHRONIC OBSTRUCTIVE PULMONARY DISEASE W (ACUTE) EXACERBATION (5) Hyperlipidemia Code(s): E78.5 - HYPERLIPIDEMIA, UNSPECIFIED (6) Hypothyroidism Code(s): E03.9 - HYPOTHYROIDISM, UNSPECIFIED (7) Lung nodule Code(s): R91.1 - SOLITARY PULMONARY NODULE (8) Diastolic CHF Code(s): I50.30 - UNSPECIFIED DIASTOLIC (CONGESTIVE) HEART FAILURE (9) HTN (hypertension) Code(s): I10 - ESSENTIAL (PRIMARY) HYPERTENSION
[2020-07-08] MEDS ORDERED: predniSONE 20 MG TABLET (UD) ONE (09:21)
[2020-07-08] MEDS ORDERED: LEVOTHYROXINE NA 25 MCG TABLET (FP) ONE (09:22)
[2020-07-08] MEDS ORDERED: metoPROLOL SUCCINATE 25 MG TAB.SR.24H (FP) ONE (09:22)
[2020-07-08] MEDS ORDERED: ASPIRIN COATED 81 MG TABLET.EC ONE (09:22)
[2020-07-08] MEDS ORDERED: LIDOCAINE 5% TOPICAL PATCH ONE (09:23)
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
[2020-07-08] MEDS ORDERED: ENOXAPARIN NA (PORCINE) 30 MG/0.3 ML DISP.SYRIN SQ ONE (09:59)
[2020-07-08] MEDS: predniSONE 20 MG TABLET (UD) PO SCH (10:12)
[2020-07-08] MEDS: LIDOCAINE 5% TOPICAL PATCH TP SCH (10:13)
[2020-07-08] MEDS: ENOXAPARIN NA (PORCINE) 30 MG/0.3 ML DISP.SYRIN SQ SCH (10:13)
[2020-07-08] MEDS: POLYETHYLENE GLYCOL 3350 119 GM BTL PO SCH (10:13)
[2020-07-08] MEDS: ASPIRIN COATED 81 MG TABLET.EC PO SCH (10:13)
[2020-07-08] MEDS: metoPROLOL SUCCINATE 25 MG TAB.SR.24H (FP) PO SCH (10:13)
--- NOTE | 2020-07-08 10:53 | EKG ---
Test Reason : Blood Pressure : / mmHG Vent. Rate : 056 BPM Atrial Rate : 056 BPM P-R Int : 152 ms QRS Dur : 074 ms QT Int : 404 ms P-R-T Axes : 076 -07 024 degrees QTc Int : 389 ms POOR DATA QUALITY, INTERPRETATION MAY BE ADVERSELY AFFECTED SINUS BRADYCARDIA WITH MARKED SINUS ARRHYTHMIA POSSIBLE ANTERIOR INFARCT , AGE UNDETERMINED ABNORMAL ECG WHEN COMPARED WITH ECG OF 07-JUL-2020 18:52, [place] INTERVAL HAS DECREASED Confirmed by Mumtaz Cardoso MD ([id number]) on 07/08/2020 10:52:58 AM Referred By: Confirmed By:Mumtaz Cardoso MD
--- NOTE | 2020-07-08 10:54 | EKG ---
Test Reason : Blood Pressure : / mmHG Vent. Rate : 065 BPM Atrial Rate : 065 BPM P-R Int : 224 ms QRS Dur : 078 ms QT Int : 380 ms P-R-T Axes : 060 -12 033 degrees QTc Int : 395 ms SINUS RHYTHM WITH 1ST DEGREE A-V BLOCK POSSIBLE LEFT ATRIAL ENLARGEMENT BORDERLINE ECG WHEN COMPARED WITH ECG OF 07-JUL-2020 18:40, [place] INTERVAL HAS INCREASED VENT. RATE HAS DECREASED BY 89 BPM T WAVE INVERSION NO LONGER EVIDENT IN INFERIOR LEADS T WAVE INVERSION NO LONGER EVIDENT IN LATERAL LEADS Confirmed by Mumtaz Cardoso MD ([id number]) on 07/08/2020 10:53:08 AM Referred By: Confirmed By:Mumtaz Cardoso MD
--- NOTE | 2020-07-08 10:54 | EKG ---
Test Reason : Blood Pressure : / mmHG Vent. Rate : 154 BPM Atrial Rate : 153 BPM P-R Int : 000 ms QRS Dur : 080 ms QT Int : 274 ms P-R-T Axes : 000 -19 122 degrees QTc Int : 438 ms SUPRAVENTRICULAR TACHYCARDIA T WAVE ABNORMALITY, CONSIDER INFERIOR ISCHEMIA ABNORMAL ECG WHEN COMPARED WITH ECG OF 29-OCT-2019 14:08, VENT. RATE HAS INCREASED BY 87 BPM CRITERIA FOR ANTEROSEPTAL INFARCT ARE NO LONGER PRESENT T WAVE INVERSION NOW EVIDENT IN INFERIOR LEADS NONSPECIFIC T WAVE ABNORMALITY NO LONGER EVIDENT IN ANTERIOR LEADS T WAVE INVERSION NOW EVIDENT IN LATERAL LEADS Confirmed by Mumtaz Cardoso MD ([id number]) on 07/08/2020 10:53:17 AM Referred By: Confirmed By:Mumtaz Cardoso MD
--- NOTE | 2020-07-08 11:25 | PN ---
Progress Note (short form) - Note Progress Note: PULMONARY States chest tightness has resolved. No significant shortness of breath, cough or wheezing. CT chest done but not read showing increased size of RUL nodule sin ce 2017. Vital Signs Period Temp Pulse Resp BP Sys/Sawyer Pulse Ox Last 24 Hr 97.4 F-98.1 F 56-150 16-22 115-142/48-91 96-100 Gen: NAD at rest Heart: RRR Lung: distant breath sounds Abd: soft, nontender Ext: no edema CBC, BMP 07/08/20 06:27 07/08/20 06:27 Active Medications Acetaminophen (Tylenol -) 500 mg PO Q6H PRN PRN Reason: PAIN LEVEL 4 - 6 Last Admin: 07/08/20 10:13 Dose: 500 mg Documented by: Albuterol Sulfate (Ventolin Hfa Inhaler -) 2 puff IH RQ4H [facility] Last Admin: 07/08/20 10:12 Dose: 2 puff Documented by: Aspirin (Ecotrin -) 81 mg PO DAILY [facility] Last Admin: 07/08/20 10:13 Dose: 81 mg Documented by: Docusate Sodium (Colace -) 100 mg PO BID PRN PRN Reason: CONSTIPATION Enoxaparin Sodium (Lovenox -) 30 mg SQ DAILY [facility] Last Admin: 07/08/20 10:13 Dose: 30 mg Documented by: Levothyroxine Sodium (Synthroid -) 25 mcg PO DAILY@0700 [facility] Last Admin: 07/08/20 08:00 Dose: 25 mcg Documented by: Lidocaine (Lidoderm Patch -) 1 patch TP DAILY [facility] Last Admin: 07/08/20 10:13 Dose: 1 patch Documented by: Metoprolol Succinate (Toprol Xl -) 25 mg PO DAILY [facility] Last Admin: 07/08/20 10:13 Dose: 25 mg Documented by: Miscellaneous (Lidoderm Patch Removal) 1 each MC DAILY@2200 [facility] Last Admin: 07/07/20 19:05 Dose: 1 each Documented by: Polyethylene Glycol (Miralax (For Daily Use) -) 17 gm PO DAILY [facility] Last Admin: 07/08/20 10:13 Dose: Not Given Documented by: Prednisone (Deltasone -) 40 mg PO BID [facility] Last Admin: 07/08/20 10:12 Dose: 40 mg Documented by: A/P Acute COPD Exacerbation LV Diastolic Dysfunction CAD Hypothyroidism Lung Nodule - short course of prednisone - inhaled bronchodilators - O2 to keep SpO2 >90% - will need PET/CT scan as outpt - DVT prophylaxis
[2020-07-08] MEDS ORDERED: ESCITALOPRAM OXALATE 10 MG TABLET PO SCH (12:45)
[2020-07-08] MEDS ORDERED: ESCITALOPRAM OXALATE 10 MG TABLET ONE (12:56)
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
[2020-07-08 14:18] VITALS: BP 119/53; PULSE 73
== END 2020-07-08 14:18 | disposition home or self-care (01) | DRG 191 ==
LOC: JER 23:42 → JERBED 07-07 01:40
PROVIDERS: ADMIT Hospitalist; ATTEND Family Medicine
DX: J44.1 Chronic obstructive pulmonary disease with (acute) exacerbation (principal); I50.32 Chronic diastolic (congestive) heart failure; I25.10 Atherosclerotic heart disease of native coronary artery without angina pectoris; E03.9 Hypothyroidism, unspecified; I11.0 Hypertensive heart disease with heart failure; I25.2 Old myocardial infarction; R91.1 Solitary pulmonary nodule; F41.9 Anxiety disorder, unspecified; Z99.81 Dependence on supplemental oxygen; Z85.41 Personal history of malignant neoplasm of cervix uteri
CPT/HCPCS: 36415; 71045-TC-FY; 71250-TC; 80048; 80053; 82550; 83735; 83880; 84484; 85025; 85027; 85610; 85730; 93005; 93010; 99285-25; J0131; U0003